=== PATIENT | male | born 1980 | race Caucasian/White ===

== ENCOUNTER 2018-09-06 19:20 | Inpatient (IN) | payer OTHER, SELFPAY ==
[2018-09-06] VITALS (63 sets, daily range): BP systolic 85–141; BP diastolic 41–123; PULSE 61–152; RESP 20–36; TEMP 34.2–36.3; O2SAT 87–100
[2018-09-06] MEDS: Normal Saline 1,000 ML 1000 ML IV ×4 (19:30→20:35)
[2018-09-06 19:54] LABS: HCO3 (Venous) 6 mmol/L (22-28); HCT 45.5 % (40.0-50.0); HGB 15.8 g/dL (13.5-17.5); Mean Corp. HGB Concentration 34.7 g/dL (32.0-36.0); Mean Corpuscular Hemoglobin 29.5 pg (27.0-33.0); Mean Corpuscular Volume 84.9 fL (80-95); Mean Platelet Volume 9.9 fL (8.0-11.0); O2 Sat (Venous) 80 % (70-80); Platelet Count 466 x1000/uL (130-400); RBC 5.36 m/cumm (4.50-6.00); RBC Distribution Width 15.1 % (11.8-14.1); TCO2 (Venous) 7 mmol/L (22-29); pCO2 (Venous) 33 mm/Hg (34-47); pO2 (Venous) 48 mm/Hg (28-44)
[2018-09-06 20:04] LABS: pH (Venous) 6.89 (7.32-7.43)
[2018-09-06 20:05] LABS: BE (Venous) < 4.0 mmol/L (-3-3); Lactate-non-spesis 1.6 mmol/L (0.6-1.4)
[2018-09-06 20:08] LABS: White Blood Cell Count 28.01 k/cumm (4.4-10.8)
[2018-09-06 20:15] LABS: ALT 28 U/L (12-78); AST 16 U/L (15-37); Albumin 3.2 g/dL (3.4-5.0); Alkaline Phosphatase 158 U/L (46-116); Anion Gap 23.5 mmol/L (3-11); BUN 43 mg/dL (7-18); Bilirubin, Total 1.1 mg/dL (0.2-1.0); CO2 7.5 mmol/L (21.0-32.0); CREATININE 2.35 mg/dL (0.70-1.30); Calcium 9.9 mg/dL (8.5-10.1); Chloride 87 mmol/L (98-107); Estimated GFR 31.54 (mL/min/1.73m2); Magnesium 2.3 mg/dL (1.8-2.4)
[2018-09-06 20:16] LABS: Troponin I < 0.02 ng/mL (0.00-0.06)
[2018-09-06 20:18] LABS: Glucose 718 mg/dL (70-100)
[2018-09-06 20:19] LABS: Sodium 118 mmol/L (136-145)
[2018-09-06 20:20] LABS: Potassium 6.4 mmol/L (3.5-5.1)
--- NOTE | 2018-09-06 20:23 | DI.RAD_ITS ---
SYMPTOMS/DIAGNOSIS: COUGH, ALTERED MENTATION PORTABLE AP UPRIGHT CHEST: There are no gross infiltrates in the lungs. No definite pleural effusion is seen. The heart is top limits of normal in size. There is some prominence of the ascending aorta which may be on the basis of ectasia and/or tortuosity and is unlikely to represent an aneurysm, however, in the absence of prior images, then follow up assessment with CT could be considered if clinically indicated. In addition on this AP projection, there may in fact be widening of the mediastinum. Further assessment initially with a PA and lateral study is suggested. There is no significant pleural effusion. There is no pneumothorax. No acute bony abnormality is seen. SUMMARY: There is no definite evidence of an acute pneumonitis. There are findings noted in this patient that could be further resolved with a CT of the chest. Please see the above discussion. This possible discordance was conveyed to the referring physician on 09/07/18 at 8:15 am.
[2018-09-06 20:28] LABS: Absolute Lymphocyte Count 1.96 k/cumm (1.2-3.4); Absolute Monocyte Count 1.68 k/cumm (0.11-0.7); Absolute Neutrophil Count 23.81 k/cumm (1.2-6.7); Atypical Lymphocytes % 1
[2018-09-06 20:31] LABS: Creatine Kinase 203 U/L (39-308)
--- NOTE | 2018-09-06 20:34 | ED.GENADUL_ITS ---
Discharge Plan Disposition Patient Disposition: [facility] INPATIENT Condition: Critical Discharge Details Chief Complaint: AMS/LOC Clinical Impression: DKA (diabetic ketoacidoses), Sepsis Primary Care Provider: Bin Rodriguez ED Provider: Eddie Rodriguez Home Meds and New Rx's Prescriptions: No Action chlorthalidone 25 mg Tablet 12.5 mg PO DAILY RF: 0 tramadol 50 mg Tablet 50 mg PO Q6H PRNRF: 0 valsartan 320 mg Tablet 320 mg PO DAILY RF: 0 Medical Decision Making 20:20 --patient seen immediately on arrival. Patient in critical condition on arrival. 37-year-old male presents with EMS with altered mental status, found down, elevated blood sugar, no known history of diabetes. Patient is tachypneic, was hypoxic but responding to high flow nonrebreather, currently satting 100%. Patient is normotensive and not tachycardic. RT consulted and at bedside - attempted abg unsuccessfully. Since arrival, patient is now more alert, initially was not able to respond to even painful stimuli but did have a gag reflex. He now is able to respond to verbal stimuli and is answering questions more appropriately, he remains lethargic. Patient difficult IV access. Nursing able to obtain #2 18-gauge peripheral IVs. Patient has limited neck access and groin is with skin breakdown and yeast odor. Attempted to place left subclavian central venous catheter for additional access but unfortunately was not able to identify space and patient did not tolerated procedure lying flat. Central line placement was aborted. Patient received approximately 500 mL IV fluid by EMS. Patient given additional 2 L IV fluid bolus here. Plan to start patient on insulin drip for presumed DKA. Patient has leukocytosis, mildly elevated lactate, and is hypothermic, he meets SIRS criteria consider sepsis. UA and chest x-ray pending. Plan to cover broadly with Zosyn and vancomycin. I called and spoke with Dr. Dozier who will admit the patient to the ICU. 21:06 --chest x-ray reviewed and interpreted by radiology: No significant airspace consolidation accounting for motion. Patchy right infrahilar opacity likely corresponds to normal hilar structures. Consider aspiration in the right clinical setting. Patient remains hemodynamically stable. HPI General Mode of arrival: EMS . Date/Time Provider Initiated Documentation: 09/06/18 19:34 . Limitations to Documentation: altered mental status . Information obtained by: EMS . HPI Narrative: 37-year-old male here after being found down by a neighbor. Unknown downtime. EMS assisted him to stand and walk out of the bathroom. It was blood and diarrhea in the bathroom. Patient altered on arrival and nonverbal. EMS note that he had an elevated blood glucose with glucometer reading high. Related Data Home Medications Medication Instructions Recorded Confirmed chlorthalidone 12.5 mg PO DAILY 09/06/18 09/06/18 tramadol 50 mg PO Q6H PRN 09/06/18 09/06/18 valsartan 320 mg PO DAILY 09/06/18 09/06/18 Allergies Allergy/AdvReac Type Severity Reaction Status Date / Time lactose AdvReac Diarrhea Unverified 02/25/17 15:35 General Stated Complaint: AMS/LOC FILEMON: 1 Review of Systems Review of Systems Unobtainable due to mental condition Exam Const General: in distress, ill appearing and lethargic Nutritional Appearance: obese Orientation: obtunded Limitations: altered mental status HENMT Head: normocephalic and atraumatic Mouth: moist mucous membranes Eyes Conjunctivae: normal conjunctivae Sclera: normal sclerae Pupils: PERRL (4mm) Neck Neck: trachea midline and supple Resp Effort & Inspection: tachypneic Auscultation: clear to auscultation bilaterally, no rales, no rhonchi and no wheezes Cardio Jugular venous pressure: no JVD Rate: regular rate and not tachycardic Rhythm: regular rhythm GI Palpation: soft, not firm, no guarding, no masses, not rigid and nontender Skin Rashes: rashes noted (Superficial skin breakdown bilateral groin with some dried blood) Neuro General: obtunded and unable to assess gait Cognition: abnormal cognition Extrem General: no edema Course Vital Signs Temperature 36.3 C L 09/06/18 19:22 Pulse 84 09/06/18 19:22 Respiratory Rate 26 H 09/06/18 19:22 Blood Pressure 136/49 L 09/06/18 19:22 Pulse Oximetry 100 09/06/18 19:22 Temperature 35.0 C L 09/06/18 20:01 Temperature Source Skin 09/06/18 19:22 Pulse 80 09/06/18 20:01 Pulse 89 09/06/18 20:01 Respiratory Rate 28 H 09/06/18 20:01 Respiratory Effort 09/06/18 20:08 Blood Pressure 123/49 L 09/06/18 20:01 Blood Pressure Mean 63 09/06/18 20:01 Pulse Oximetry 100 09/06/18 20:01 Respiratory End-tidal CO2 16 09/06/18 20:01 Oxygen Delivery Method Non-Rebreather 09/06/18 19:32 Oxygen Flow Rate 10 09/06/18 19:22 Lab/Test Results Lab/Test Results: 09/06/18 20:10 Blood Blood Culture - Pending 09/06/18 20:10 Blood Blood Culture - Pending Laboratory Tests Range/Units 09/06/18 09/06/18 09/06/18 19:43 19:43 19:43 WBC (4.4-10.8) k/cumm 28.01 H* RBC (4.50-6.00) m/cumm 5.36 Hgb (13.5-17.5) g/dL 15.8 Hct (40.0-50.0) % 45.5 MCV (80-95) fL 84.9 MCH (27.0-33.0) pg 29.5 MCHC (32.0-36.0) g/dL 34.7 RDW (11.8-14.1) % 15.1 H Plt Count (130-400) x1000/uL 466 H MPV (8.0-11.0) fL 9.9 VBG pH (7.32-7.43) VBG pCO2 (34-47) mm/Hg VBG pO2 (28-44) mm/Hg VBG HCO3 (22-28) mmol/L VBG Total CO2 (22-29) mmol/L VBG O2 Saturation (70-80) % VBG Base Excess (-3-3) mmol/L Sodium (136-145) mmol/L 118 L* Potassium (3.5-5.1) mmol/L 6.4 H* Chloride (98-107) mmol/L 87 L Carbon Dioxide (21.0-32.0) mmol/L 7.5 L Anion Gap (3-11) mmol/L 23.5 H BUN (7-18) mg/dL 43 H Creatinine (0.70-1.30) mg/dL 2.35 H Estimated GFR/1.73 m2 (mL/min/1.73m2) 31.54 Glucose (70-100) mg/dL 718 H* Lactate (0.6-1.4) mmol/L 1.6 H Calcium (8.5-10.1) mg/dL 9.9 Magnesium (1.8-2.4) mg/dL 2.3 Total Bilirubin (0.2-1.0) mg/dL 1.1 H AST (15-37) U/L 16 ALT (12-78) U/L 28 Alkaline Phosphatase (46-116) U/L 158 H Troponin I (0.00-0.06) ng/mL < 0.02 Total Protein (6.4-8.2) g/dL 8.0 Albumin (3.4-5.0) g/dL 3.2 L Range/Units 09/06/18 19:43 WBC (4.4-10.8) k/cumm RBC (4.50-6.00) m/cumm Hgb (13.5-17.5) g/dL Hct (40.0-50.0) % MCV (80-95) fL MCH (27.0-33.0) pg MCHC (32.0-36.0) g/dL RDW (11.8-14.1) % Plt Count (130-400) x1000/uL MPV (8.0-11.0) fL VBG pH (7.32-7.43) 6.89 L VBG pCO2 (34-47) mm/Hg 33 L VBG pO2 (28-44) mm/Hg 48 H VBG HCO3 (22-28) mmol/L 6 L VBG Total CO2 (22-29) mmol/L 7 L VBG O2 Saturation (70-80) % 80 VBG Base Excess (-3-3) mmol/L < 4.0 H Sodium (136-145) mmol/L Potassium (3.5-5.1) mmol/L Chloride (98-107) mmol/L Carbon Dioxide (21.0-32.0) mmol/L Anion Gap (3-11) mmol/L BUN (7-18) mg/dL Creatinine (0.70-1.30) mg/dL Estimated GFR/1.73 m2 (mL/min/1.73m2) Glucose (70-100) mg/dL Lactate (0.6-1.4) mmol/L Calcium (8.5-10.1) mg/dL Magnesium (1.8-2.4) mg/dL Total Bilirubin (0.2-1.0) mg/dL AST (15-37) U/L ALT (12-78) U/L Alkaline Phosphatase (46-116) U/L Troponin I (0.00-0.06) ng/mL Total Protein (6.4-8.2) g/dL Albumin (3.4-5.0) g/dL Critical Care Time Critical Care Time: Yes Total Critical Care Time: 90 Attestation: I spent greater than 90 minutes addressing this patient's immediate life threats.
[2018-09-06] MEDS: Calcium Gluconate 4.65 MEQ/10 ML VIAL 4.65 MG IVP (20:42)
[2018-09-06 20:44] LABS: *AMPHETAMINES SCREEN URINE Negative (Negative); *BARBITURATES SCREEN URINE Negative (Negative); *BENZODIAZEPINES SCREEN URINE Negative (Negative); Cannabinoids THC Negative (Negative); Cocaine Screen,Urine Negative (Negative); METHADONE URINE SCREEN Negative (Negative); OPIATES URINE SCREEN Negative (Negative)
[2018-09-06 20:45] LABS: Tricyclic Antidepressants Negative (Negative)
[2018-09-06 20:46] LABS: ETHANOL BLOOD < 3.0 mg/dL (<3)
[2018-09-06 20:49] LABS: Bilirubin Moderate (Negative); Blood Moderate (Negative); Clarity Sl Cloudy; Glucose 500 mg/dL (Negative); Ketones 80 mg/dL (Negative); Leukocyte Esterase Negative (Negative); Nitrite Negative (Negative); Specific Gravity 1.015 (1.005-1.025); Urobilinogen 0.2 EU/dL (Up TO 0.2); pH 5.5 (5-8)
[2018-09-06 20:56] LABS: TSH (W/Ref FT4) 2.17 uIU/mL (0.358-3.74)
--- NOTE | 2018-09-06 21:03 | DI.VRAD_ITS ---
EXAM: XR Chest, 1 View EXAM DATE/TIME: 09/06/2018 8:24 PM CLINICAL HISTORY: 37 years old, male; Signs and symptoms; Cough and other: Altered mentation; Cough with hemorrhage; Additional info: Patient unable to follow breathing instructions well. TECHNIQUE: XR of the chest, 1 view. COMPARISON: No relevant prior studies available. FINDINGS: Lungs: Low lung volumes. Motion artifact in the lungs. No significant airspace consolidation accounting for motion. Patchy right infrahilar opacity. Pleural space: No significant pleural effusion. No pneumothorax. Heart/Mediastinum: Conspicuous upper mediastinum compatible with cortical imaging. Bones/joints: No acute fracture. IMPRESSION: No significant airspace consolidation accounting for motion. Patchy right infrahilar opacity likely corresponds to normal hilar structures. Consider aspiration in the right clinical setting. Dictated and Authenticated by: Seble Dubon MD. Ordering:VISHAL CONTE MD
[2018-09-06] MEDS: PIPERACILLIN/TAZO 4.5 GM in Normal Saline 100 ML IVPB (21:13)
[2018-09-06 21:15] LABS: Bacteria Rare HPF (Negative); C & S Indicated? No; Crystals Negative HPF (Negative); Epithelial Cells Rare HPF (Negative); Mucus Trace (Negative); Other Cells Negative (Negative); RBC 0-2 (0-2)
[2018-09-06 21:17] LABS: WBC 0-2 HPF (0-5)
[2018-09-06 21:36] LABS: BUN 43 mg/dL (7-18); CREATININE 2.05 mg/dL (0.70-1.30); Calcium 9.2 mg/dL (8.5-10.1); Chloride 92 mmol/L (98-107); Estimated GFR 36.93 (mL/min/1.73m2); Potassium 5.8 mmol/L (3.5-5.1)
[2018-09-06 21:38] LABS: Glucose 641 mg/dL (70-100)
[2018-09-06 21:39] LABS: Sodium 124 mmol/L (136-145)
--- NOTE | 2018-09-06 21:45 | HPE_ITS ---
Date of service: 09/06/18 Time of Service: 20:45 Assessment and Plan (1) DKA (diabetic ketoacidoses): Current visit: Yes Status: Acute iv fluids; iv insulin per [facility] protocol w/ hourly monitoring of fingerstick glucose; BMP every 2hr with addition of potassium to his iv once his potassium is below 5.5; addition of glucose to his iv once his hourly glucose is below 250; consult diabetic education tomorrow to begin teaching. Patient is new onset type 1 diabetic. No prior personal hx of DM but multiple family members (sibs, father, mother, cousins, aunt); I will repeat his VBG and if his pH remains below 7 then add sodium bicarbonate to his iv fluids. His hyponatremia corrects to 133 based upon his initial glucose over 700. His elevated potassium was appropriate for his severe metabolic acidosis. He did not need calcium gluoconate and in fact he will need potassium supplementation once his potassium is closer to 5 (2) Acute kidney injury (nontraumatic): Current visit: Yes Status: Acute probably d/t severe dehydration; hopefully will recover w/ aggresive iv fluid hydration. He is already showing recover in his urine output which is over 100 mL/hr (3) Leukocytosis, unspecified: Current visit: Yes Status: Acute unclear source but probably d/t his DKA however given that he was found down and was initially hypoxic and there is vague perihilar densities on the right, he may have aspirated. Given his significantly elevated WBC of 28,000, blood cultures were obtained and he was started on broad spectrum antibiotics including Zosyn and Vancomycin. I concur with broad coverage until we are sure that he does not have sepsis. I will repeat his CXR and CBC in the a.m. His UA although shows ketonuria and severe hyperglycosuria there is no evidence for UTI. (4) Acute metabolic encephalopathy: Current visit: Yes Status: Acute He has no focal neurologic deficits to suggest a CVA and his sensorium is improving since his admission. I suspect this is all from DKA, dehydration, and/ or infection. (5) Bleeding: Current visit: Yes Status: Suspected patient was found by his cousin on the toilet w/ a lot of blood on his buttocks and his hand and on the toilet. He reportedly has hemorrhoids. It is not clear as to whether or not this was the source. I will check serial hemograms tonight to see if he has significant drop in his hemoglobin. I will put him on protonix for GI protection and will not use enoxaparin for DVT prophylaxis but use SCD's and ANTONIO hose instead in the event he had some GI bleeding. (6) Tinea cruris: Current visit: Yes Status: Acute I will begin him on topical antifungal w/ ketoconazole History of Present Illness Chief Complaint: Found down at home unresponsive Narrative: 37-year-old morbidly obese male with a past medical history of essential hypertension not currently medicated. Patient was expected to show up at his grandmother's home at noon today when he did not arrive his family came to check on him around 5 PM and found him in the bathroom naked and unresponsive on the toilet. His cousin, who is a nurse, found him sitting on the toilet with blood covering his buttocks and on his hand as well as on the toilet. She check for responsiveness and found him to be moaning but incoherent when she attempted to move him from the toilet over to a chair she says he became ashen white and less responsive. She laid him down and called EMS. Evaluation by EMS found him to be tachypneic and hypoxic and hyperglycemic. Blood sugar was too high for the glucometer to read. Further evaluation in the emergency room found him to be hypothermic with a temperature of 34.2 core temperature taken from his Herman catheter. He was found to be in diabetic ketoacidosis with a glucose of 718 and an anion gap of 23.5 and a carbon dioxide level of 7.5 with a venous blood gas of 6.89 along with acute kidney injury with an elevated BUN of 43 and creatinine 2.35 and an elevated potassium of 6.4 and a sodium of 118 and a leukocytosis of 28,000. UA had 80 mg/dL ketones. Workup for infectious etiology included chest x-ray that showed no acute infiltrates and a urinalysis that showed rare bacteria and negative for nitrites and leukocyte esterase. Treatment in the emergency room included 3 L of normal saline rapidly infused over the first couple hours. Initiation of broad-spectrum antibiotics including Zosyn and vancomycin. Patient was given a dose of calcium gluconate for the elevated potassium although his EKG showed no acute peaking of his T waves and no arrhythmias. Patient was given a bolus of insulin and started on insulin drip at 0.1 units/kg/h. While he was initially obtunded after couple liters of fluids had been given patient became more awake but remained disoriented. Patient is now being admitted to the intensive care unit for further treatment of new onset type 1 diabetes mellitus with diabetic ketoacidosis, dehydration, acute kidney injury, leukocytosis rule out sepsis. 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 When I asked him whether he is right-handed or left-handed he initially said left handed but when asked again he said he is right-handed. He is not oriented to place or time or circumstance. He knows that has been ill for 3 or 4 days.) [facility] Head: normal to inspection, no palpable skull fracture, normocephalic and atraumatic Ears: EAC abnormal excessive cerumen bilaterally General nose exam: external nose normal and nares normal Face and sinus: normal facial exam Mouth: oral mucosa abnormal (dry; no exudates; no lacerations) and tongue abnormal (dry) Eyes Visual David: normal visual david by confrontation Alignment and Position: alignment normal Periorbital: periorbital findings normal Eyelids: eyelids normal Conjunctivae: conjunctivae normal Sclera: sclerae normal Cornea: corneas normal Pupils: PERRL and pupil size bilaterally 3 EOM: EOM intact bilaterally Direct ophthalmoscopy: normal light reflex Neck Neck: normal visual inspection, full ROM, no lymphadenopathy, trachea midline and supple Thyroid: thyroid normal Carotids: normal carotid upstroke Lymphatic: no lymphadenopathy noted Resp Effort & Inspection: normal respiratory effort and able to speak in complete sentences Auscultation: wheezes expiratory wheezes and scattered wheezes Cardio Jugular venous pressure: no JVD Palpation: normal PMI Rate: regular rate Rhythm: regular rhythm Heart Sounds: S1 normal, S2 normal, normal, physiologic split S2, no gallops, no murmurs and no rubs Bruits: no abdominal aortic bruits and no carotid bruits Pulses: normal peripheral pulses GI Inspection: large pannus, obesity and striae Palpation: soft and no hepatosplenomegaly Percussion: normal to percussion Auscultation: normal bowel sounds Male General Exam: Yes erythema and Yes lesions (bilateral inguinal excoriations ) Back/Spine/Pelvis Back: no CVA tenderness Cervical Spine: normal cervical lordosis Thoracic/Lumbar Spine: thoracic and lumbar spine normal to inspection Skin General skin exam: erythema (over both inguinal areas w/ maceration and excoriation) Neuro General: awake, oriented Patient Orientation: Person and Confused, moves all extremities, no focal motor deficits and CN's II-XI intact bilaterally Cranial Nerves: CN's II-XI intact bilaterally, PERRL, EOM intact bilaterally, no nystagmus, facial strength normal, tongue midline, hearing normal, able to rotate head bilaterally, able to elevate shoulders bilaterally and Symmetric palate elevation Cognition: abnormal cognition Speech: speech normal Motor: muscle tone normal throughout, strength 5/5 throughout, no pronator drift , no movement abnormalities noted and no fasciculations Sensory Exam: no sensory deficits noted Plantar Reflexes: Downgoing: bilateral Pupils: Pinpoint: bilateral Extrem General: normal to inspection, full ROM, normal capillary refill, no joint enlargement, no clubbing, cyanosis or edema and no pedal edema Psych Appearance: disheveled Mental Status: other (lethargic but arouseable; oriented only to person; not to place/time/circumstances) Speech and Movement: agitated Mood: irritable mood and other (lethargic but arouseable; oriented only to person; not to place/time/circumstances) Affect: irritable affect Attitude: cooperative Thought Process: circumstantial Insight: poor Judgment: poor Results Imaging Chest x-ray: image reviewed (no definite consolidation but patchy right infrahilar opacity and low lung volumes and motion artifact; can not exclude aspiration versus artifact) Labs : 09/07/18 07:40 09/07/18 03:50 Laboratory Results - last 24 hr 09/06/18 09/06/18 09/06/18 19:13 19:43 19:43 WBC RBC Hgb Hct MCV MCH MCHC RDW Plt Count MPV Immature Gran % Neutrophils % Lymphocytes % Monocytes % Eosinophils % Basophils % Absolute Neutrophils Band Neutrophils Absolute Lymphocytes Absolute Monocytes Absolute Eosinophils Absolute Basophils Metamyelocytes Atypical Lymphocytes VBG pH VBG pCO2 VBG pO2 VBG HCO3 VBG Total CO2 VBG O2 Saturation VBG Base Excess Sodium 118 L* Potassium 6.4 H* Chloride 87 L Carbon Dioxide 7.5 L Anion Gap 23.5 H BUN 43 H Creatinine 2.35 H Estimated GFR/1.73 m2 31.54 Glucose 718 H* Lactate 1.6 H Calcium 9.9 Magnesium 2.3 Total Bilirubin 1.1 H AST 16 ALT 28 Alkaline Phosphatase 158 H Creatine Kinase 203 Troponin I < 0.02 Total Protein 8.0 Albumin 3.2 L TSH Urine Color Urine Clarity Urine pH Ur Specific Mayo Urine Protein Urine Ketones Urine Blood Urine Nitrite Urine Bilirubin Urine Urobilinogen Ur Leukocyte Esterase Urine RBC Urine WBC Ur Epithelial Cells Urine Crystals Urine Bacteria Urine Casts Urine Mucus Urine Other Ur Culture Indicated? Urine Glucose Urine Opiates Screen Urine Methadone Screen Ur Barbiturates Screen Ur Tricyclics Screen Ur Amphetamines Screen U Benzodiazepines Scrn Urine Cocaine Screen Ur THC Screen Ethyl Alcohol < 3.0 09/06/18 09/06/18 09/06/18 19:43 19:43 19:43 WBC 28.01 H* RBC 5.36 Hgb 15.8 Hct 45.5 MCV 84.9 MCH 29.5 MCHC 34.7 RDW 15.1 H Plt Count 466 H MPV 9.9 Immature Gran % 0.0 Neutrophils % 78.0 Lymphocytes % 6.0 Monocytes % 6.0 Eosinophils % 0.0 Basophils % 0.0 Absolute Neutrophils 23.81 H Band Neutrophils 7.0 Absolute Lymphocytes 1.96 Absolute Monocytes 1.68 H Absolute Eosinophils 0.00 Absolute Basophils 0.00 Metamyelocytes 2.0 Atypical Lymphocytes 1 VBG pH 6.89 L VBG pCO2 33 L VBG pO2 48 H VBG HCO3 6 L VBG Total CO2 7 L VBG O2 Saturation 80 VBG Base Excess < 4.0 H Sodium Potassium Chloride Carbon Dioxide Anion Gap BUN Creatinine Estimated GFR/1.73 m2 Glucose Lactate Calcium Magnesium Total Bilirubin AST ALT Alkaline Phosphatase Creatine Kinase Troponin I Total Protein Albumin TSH 2.17 Urine Color Urine Clarity Urine pH Ur Specific Mayo Urine Protein Urine Ketones Urine Blood Urine Nitrite Urine Bilirubin Urine Urobilinogen Ur Leukocyte Esterase Urine RBC Urine WBC Ur Epithelial Cells Urine Crystals Urine Bacteria Urine Casts Urine Mucus Urine Other Ur Culture Indicated? Urine Glucose Urine Opiates Screen Urine Methadone Screen Ur Barbiturates Screen Ur Tricyclics Screen Ur Amphetamines Screen U Benzodiazepines Scrn Urine Cocaine Screen Ur THC Screen Ethyl Alcohol 09/06/18 09/06/18 09/06/18 19:50 19:50 20:57 WBC RBC Hgb Hct MCV MCH MCHC RDW Plt Count MPV Immature Gran % Neutrophils % Lymphocytes % Monocytes % Eosinophils % Basophils % Absolute Neutrophils Band Neutrophils Absolute Lymphocytes Absolute Monocytes Absolute Eosinophils Absolute Basophils Metamyelocytes Atypical Lymphocytes VBG pH VBG pCO2 VBG pO2 VBG HCO3 VBG Total CO2 VBG O2 Saturation VBG Base Excess Sodium 124 L* Potassium 5.8 H Chloride 92 L Carbon Dioxide 7.0 L Anion Gap 25.0 H BUN 43 H Creatinine 2.05 H Estimated GFR/1.73 m2 36.93 Glucose 641 H* Lactate Calcium 9.2 Magnesium Total Bilirubin AST ALT Alkaline Phosphatase Creatine Kinase Troponin I Total Protein Albumin TSH Urine Color Yellow Urine Clarity Sl cloudy Urine pH 5.5 Ur Specific Mayo 1.015 Urine Protein 100 H Urine Ketones 80 Urine Blood Moderate H Urine Nitrite Negative Urine Bilirubin Moderate H Urine Urobilinogen 0.2 Ur Leukocyte Esterase Negative Urine RBC 0-2 Urine WBC 0-2 Ur Epithelial Cells Rare Urine Crystals Negative Urine Bacteria Rare Urine Casts Negative Urine Mucus Trace Urine Other Negative Ur Culture Indicated? No Urine Glucose 500 H Urine Opiates Screen Negative Urine Methadone Screen Negative Ur Barbiturates Screen Negative Ur Tricyclics Screen Negative Ur Amphetamines Screen Negative U Benzodiazepines Scrn Negative Urine Cocaine Screen Negative Ur THC Screen Negative Ethyl Alcohol Last Vital Signs Temp 35.5 C L 09/06/18 21:27 Pulse 87 09/06/18 21:27 Resp 27 H 09/06/18 21:27 BP 116/63 09/06/18 21:27 Pulse Ox 100 09/06/18 21:27
[2018-09-06] MEDS: VANCOMYCIN 2,000 MG in Normal Saline 500 ML 250 MG IVPB (22:10)
[2018-09-06 22:42] LABS: Diff Comment Manual Differential; RBC Morphology Normal
[2018-09-06 23:35] LABS: Abs Immature Grans 0.53 k/cumm (0.0-0.09); HGB 15.3 g/dL (13.5-17.5); Mean Corp. HGB Concentration 35.6 g/dL (32.0-36.0); Mean Corpuscular Hemoglobin 29.8 pg (27.0-33.0); Mean Corpuscular Volume 83.7 fL (80-95); Mean Platelet Volume 10.1 fL (8.0-11.0); Platelet Count 386 x1000/uL (130-400); RBC 5.14 m/cumm (4.50-6.00); RBC Distribution Width 15.2 % (11.8-14.1)
[2018-09-06 23:45] LABS: Anion Gap 24.3 mmol/L (3-11); BUN 46 mg/dL (7-18); CO2 5.7 mmol/L (21.0-32.0); CREATININE 2.06 mg/dL (0.70-1.30); Chloride 98 mmol/L (98-107); Estimated GFR 36.72 (mL/min/1.73m2); Glucose 482 mg/dL (70-100); Potassium 4.8 mmol/L (3.5-5.1); Sodium 128 mmol/L (136-145)
[2018-09-06 23:50] LABS: White Blood Cell Count 29.16 k/cumm (4.4-10.8)
[2018-09-07] VITALS (36 sets, daily range): BP systolic 110–148; BP diastolic 41–76; PULSE 74–112; RESP 17–33; TEMP 37.1–37.6; O2SAT 97–100
[2018-09-07 00:24] LABS: Absolute Eosinophil Count 0.29 k/cumm (0.0-0.7); Absolute Lymphocyte Count 2.92 k/cumm (1.2-3.4); Absolute Monocyte Count 2.04 k/cumm (0.11-0.7); Absolute Neutrophil Count 23.62 k/cumm (1.2-6.7); Atypical Lymphocytes % 6
[2018-09-07 00:25] LABS: Diff Comment Manual Differential; RBC Morphology Normal
[2018-09-07] MEDS: POTASSIUM CHLORIDE/0.45% NACL 1,000 ML 150 MEQ IV (01:00)
[2018-09-07] MEDS: WATER IV (01:09)
[2018-09-07] MEDS: Sodium Bicarbonate 50 MEQ/50 ML SYR (01:09)
[2018-09-07] MEDS: DEXTROSE 5% IV (01:09)
[2018-09-07] MEDS: SODIUM BICARBONATE IV (01:09)
[2018-09-07 01:52] LABS: Anion Gap 22.3 mmol/L (3-11); BUN 47 mg/dL (7-18); CO2 8.7 mmol/L (21.0-32.0); CREATININE 2.19 mg/dL (0.70-1.30); Chloride 96 mmol/L (98-107); Estimated GFR 34.22 (mL/min/1.73m2); Glucose 422 mg/dL (70-100); Potassium 4.7 mmol/L (3.5-5.1); Sodium 127 mmol/L (136-145)
[2018-09-07] MEDS: Normal Saline Flush 10 ML SYR IVP (02:38)
[2018-09-07] MEDS: Pantoprazole 40 MG VIAL IVP ×2 (02:38→23:30)
[2018-09-07] MEDS: PIPERACILLIN/TAZO 4.5 GM in Normal Saline 100 ML IVPB ×4 (04:02→22:03)
[2018-09-07 04:25] LABS: Anion Gap 18.7 mmol/L (3-11); BUN 50 mg/dL (7-18); CO2 11.3 mmol/L (21.0-32.0); CREATININE 2.27 mg/dL (0.70-1.30); Calcium 9.8 mg/dL (8.5-10.1); Chloride 97 mmol/L (98-107); Estimated GFR 32.83 (mL/min/1.73m2); Glucose 394 mg/dL (70-100); Potassium 4.4 mmol/L (3.5-5.1); Sodium 127 mmol/L (136-145)
[2018-09-07 07:51] LABS: HCO3 (Venous) 11 mmol/L (22-28); O2 Sat (Venous) 89 % (70-80); TCO2 (Venous) 10 mmol/L (22-29); pCO2 (Venous) 30 mm/Hg (34-47); pO2 (Venous) 50 mm/Hg (28-44)
[2018-09-07 07:56] LABS: pH (Venous) 7.17 (7.32-7.43)
[2018-09-07 07:58] LABS: Abs Immature Grans 0.13 k/cumm (0.0-0.09); Absolute Monocyte Count 1.92 k/cumm (0.11-0.7); Basophils % 0.1; HCT 40.2 % (40.0-50.0); HGB 14.1 g/dL (13.5-17.5); Immature Grans % 0.8; Lymphocytes % 3.6; Mean Corp. HGB Concentration 35.1 g/dL (32.0-36.0); Mean Corpuscular Hemoglobin 29.3 pg (27.0-33.0); Mean Corpuscular Volume 83.4 fL (80-95); Mean Platelet Volume 9.7 fL (8.0-11.0); Neutrophils % 83.5; Platelet Count 277 x1000/uL (130-400); RBC 4.82 m/cumm (4.50-6.00); RBC Distribution Width 15.4 % (11.8-14.1); White Blood Cell Count 16.01 k/cumm (4.4-10.8)
[2018-09-07 08:01] LABS: Absolute Basophil Count 0.02 k/cumm (0.0-0.2); Absolute Lymphocyte Count 0.58 k/cumm (1.2-3.4); Absolute Neutrophil Count 13.37 k/cumm (1.2-6.7)
[2018-09-07 08:07] LABS: Anion Gap 16.4 mmol/L (3-11); BUN 53 mg/dL (7-18); CO2 12.6 mmol/L (21.0-32.0); CREATININE 2.59 mg/dL (0.70-1.30); Calcium 10.1 mg/dL (8.5-10.1); Chloride 99 mmol/L (98-107); Estimated GFR 28.19 (mL/min/1.73m2); Glucose 250 mg/dL (70-100); Potassium 4.1 mmol/L (3.5-5.1); Sodium 128 mmol/L (136-145)
--- NOTE | 2018-09-07 08:30 | DI.RAD_ITS ---
SYMPTOMS/DIAGNOSIS: DYSPNEA PA AND LATERAL CHEST: The patient is morbidly obese, which degrades our ability to obtain a satisfactory examination; however, there is no gross infiltrate, or pneumothorax or pleural effusion. The heart appears to be within normal limits in size. There are no definite findings to suggest an aneurysm; however, this assessment is essentially impossible on the basis of the examinations obtained thus far and if there is any further question, then the patient could be referred to a facility that has a CT that can handle a patient in excess of 450 pounds.
[2018-09-07] MEDS: POTASSIUM CHLORIDE/D5-0.45NACL 1,000 ML 150 MEQ IV (08:42)
--- NOTE | 2018-09-07 09:01 | INITIAL_ITS ---
- If Service Date Differs Date of service: 09/07/18 Time of Service: 09:00 Care Management Initial Assess REASON FOR HOSPITALIZATION:: DKA, metobolic encephalopathy PAST MEDICAL HISTORY/PAST SURGICAL HISTORY:: Essential hypertension. History of appendectomy. New onset of diabetes. PREVIOUS FUNCTIONAL STATUS/SOCIAL/FAMILY SUPPORTS:: Miguelito lives alone in an apartment in [facility]. He works full-time at a company in [place] [facility]. His support system is his brother Brandon and his father. Miguelito at baseline is independent with ADLs and transportation. CURRENT FUNCTIONAL STATUS:: Miguelito is drowsy, not able to fully engage with CM. His family is present in the room including his brother. CM was able to wake up Miguelito enough to obtain his HIPPA. Miguelito is being transferred to [facility], family has been updated. ADVANCE DIRECTIVES:: None on file at [facility] Has patient been provided with information about the portal?: No Did the patient sign up for the portal?: No CODE STATUS:: Full Code INSURANCE COVERAGE / FINANCIAL ISSUES:: [facility] CURRENT HOME/COMMUNITY SERVICES/EQUIPMENT:: No current services. PRIMARY CARE PHYSICIAN:: Dr. Rodriguez POTENTIAL DISCHARGE NEEDS:: Miguelito will be transferred to [facility]. Upon discharge from [facility] he will need follow-up with simulation educator, and primary care. PATIENT/FAMILY EDUCATION NEEDS:: Discharge education, limitations, follow-up plan of care. Expectations of transfer to [facility]. ANTICIPATED BARRIERS TO DISCHARGE:: None identified at this time TRANSPORTATION:: Via [facility] to [facility], coordinated by nursing security site supervisor. PLAN:: Miguelito is being transferred to [facility] today. Family is aware of transfer. He will transfer by [facility] coordinated by nursing security site supervisor. CM offered support to patient, care team, and family during transition.
[2018-09-07 09:27] LABS: Lactate-non-spesis 1.3 mmol/L (0.6-1.4)
--- NOTE | 2018-09-07 09:45 | PHARADMIT ---
Addendum entered by Ines Gonzalez 09/08/18 11:16: Pharmacy Note Subjective expecting transfer to [facility] at noon Objective Assessment adjusted pip/tazo and vancomycin doses due to Scr increase. Plan watch for med dose changes needed Original Note: Admission Pharmacy Clinical Review DKA, Metabolic Encephalopathy, TOD, R/O Sepsis Code Status Full Code Current Weight Wgt- 203.6 kg Renally Cleared and Narrow Therapeutic Index Meds CrCl~ 45 mL/min Meds-OK QTc Value / Action Taken QTc-444 na BP Control, Fever BP-128/61 Tmax- 37.3C Electrolytes reviewed Na- 128 K+4.1 Mag-2.0 DVT Prophylaxis No DVT proph meds (has TEDS/SCDs) Opiate Usage / Scheduled Bowel Regimen Ordered No Yes Plt/SCr for Heparin / Enoxaparin Plts-277 SCr-2.59 INR for Warfarin na H/H stable, WBC/Bands H&H- 14.1/40.2 WBC- 16.01 (was 29.16) Antibiotic appropriateness Zosyn, Vancomycin Cultures and Sensitivities Blood-pending Surgical ABX d/c within 24 hr na DM control / Insulin Dosing BG- 250 (718 on Admission) Insulin Drip Heart Failure (Check EF%) (GLENROY's, B-Block, Diuretics) none IV to PO Switch No Home Meds Reviewed Yes Home Meds Not Ordered None Comments Valsartan, Chlorthalddione, Tramadol-DC'd
--- NOTE | 2018-09-07 10:20 | W.PM.PROGNOT ---
Date of Service Date of service: 09/07/18 Time of Service: 10:20 Assessment and Plan (1) DKA (diabetic ketoacidoses): Current visit: Yes Status: Acute Continues on IV insulin per [place] protocol w/ hourly monitoring of fingerstick glucose; fluids now with dextrose and potassium as blood sugar below 250 and potassium below 5. Magnesium remains normal, phosphate added to next blood draw. pH on VBG this morning improved, so no place for bicarb therapy. Anion gap is closing and lactate improved, continue BMP every 2hr. Diabetes diagnosis is new. I have ordered C-peptide and anti-kim antibodies to clarify a type I versus type II. We will also order A1c and TSH. (2) Acute kidney injury (nontraumatic): Current visit: Yes Status: Acute Patterson felt secondary to dehydration on admission. However, GFR is not improving with IV hydration. He does have a history of untreated hypertension, so he may have some chronic renal insufficiency. I will get some urine sodium and creatinine to assess. Also consider renal ultrasound if not improving. His urine output is adequate, and he has a Herman placed. (3) Leukocytosis, unspecified: Current visit: Yes Status: Acute He was started on broad spectrum antibiotics including Zosyn and Vancomycin given elevated white count, though a clear source is not identified on admission. We did just notice a draining abscess in the left groin. It is draining well, I do not think there is a residual pocket of pus. I have sent some drainage for culture. I will continue broad coverage until we get that culture and the blood cultures back. Repeat CXR brain not revealing. White blood cell count is improving, and it may just be related to the acute DKA. (4) Acute metabolic encephalopathy: Current visit: Yes Status: Acute He has no focal neurologic deficits to suggest a CVA and his sensorium is improving since his admission. I agree this is very to DKA, dehydration, and infection, continue to monitor and consider further workup if his sensorium does not continue to clear. (5) Bleeding: Current visit: Yes Status: Suspected patient was found by his cousin on the toilet w/ a lot of blood on his buttocks and his hand and on the toilet. Hemoglobin has not dropped seemingly. This may have been drainage from the abscess in the groin. (6) Tinea cruris: Current visit: Yes Status: Acute Severe, treat with topical antifungal. Appears candidal. (7) Cutaneous abscess of groin: Current visit: Yes Status: Acute This appears to be in the fatty tissue of the skin rather than in the scrotum. It is draining well, I do not think additional I&D is necessary at this point. On IV antibiotics. (8) DVT prophylaxis: Current visit: Yes Status: Acute Lovenox. Subjective Patient reports: denies diarrhea, vomiting and fever Interval history since last seen: 24-hour events: Patient on insulin drip overnight. Fluids changed to include dextrose and potassium this morning. Patient unable to give history due to mental status. He is frequently scratching his right groin area. He does not moan in response to questions, but speech is unintelligible. Exam Narrative Exam Narrative: General: Obtunded. He does turn head in response to voice and touch. He appears to say no appropriately to questions about pain during exam. HEENT: Conjunctivae are clear. Mucous membranes slightly dry, no lesions. Neck is supple. Lungs: Clear to auscultation bilaterally. Tachypneic. Cardia vascular: Tachycardic but regular rhythm. No murmurs gallops or rubs. Abdomen: Active bowel sounds, soft, does not respond in pain to palpation. Obese, but could not appreciate mass. Extremities: No pitting edema, warm, not cyanotic. : 2 x 3 cm induration with open central area draining brown liquid in the left groin. Appears to be in fatty tissue rather than in scrotum. Testicles and penis appear normal. CT scan. Skin: Beefy red rash in bilateral groin. Back and sacral area benign, but with 8 mm nodular skin growth consistent with a skin tag over sacrum. Skin is clammy. No other rashes or bruises. Neurologic: Normal tone, no tremor. Objective Objective Clinical Data: Abnormal lab results 09/06/18 09/06/18 09/06/18 Range/Units 19:43 19:43 19:43 WBC 28.01 H* (4.4-10.8) k/cumm RDW 15.1 H (11.8-14.1) % Plt Count 466 H (130-400) x1000/uL Absolute Neutrophils 23.81 H (1.2-6.7) k/cumm Absolute Lymphocytes (1.2-3.4) k/cumm Absolute Monocytes 1.68 H (0.11-0.7) k/cumm VBG pH (7.32-7.43) VBG pCO2 (34-47) mm/Hg VBG pO2 (28-44) mm/Hg VBG HCO3 (22-28) mmol/L VBG Total CO2 (22-29) mmol/L VBG O2 Saturation (70-80) % VBG Base Excess (-3-3) mmol/L Sodium 118 L* (136-145) mmol/L Potassium 6.4 H* (3.5-5.1) mmol/L Chloride 87 L (98-107) mmol/L Carbon Dioxide 7.5 L (21.0-32.0) mmol/L Anion Gap 23.5 H (3-11) mmol/L BUN 43 H (7-18) mg/dL Creatinine 2.35 H (0.70-1.30) mg/dL Glucose 718 H* (70-100) mg/dL Lactate 1.6 H (0.6-1.4) mmol/L Total Bilirubin 1.1 H (0.2-1.0) mg/dL Alkaline Phosphatase 158 H (46-116) U/L Albumin 3.2 L (3.4-5.0) g/dL Urine Protein (Negative) mg/dL Urine Blood (Negative) Urine Bilirubin (Negative) Urine Glucose (Negative) mg/dL 09/06/18 09/06/18 09/06/18 Range/Units 19:43 19:50 20:57 WBC (4.4-10.8) k/cumm RDW (11.8-14.1) % Plt Count (130-400) x1000/uL Absolute Neutrophils (1.2-6.7) k/cumm Absolute Lymphocytes (1.2-3.4) k/cumm Absolute Monocytes (0.11-0.7) k/cumm VBG pH 6.89 L (7.32-7.43) VBG pCO2 33 L (34-47) mm/Hg VBG pO2 48 H (28-44) mm/Hg VBG HCO3 6 L (22-28) mmol/L VBG Total CO2 7 L (22-29) mmol/L VBG O2 Saturation (70-80) % VBG Base Excess < 4.0 H (-3-3) mmol/L Sodium 124 L* (136-145) mmol/L Potassium 5.8 H (3.5-5.1) mmol/L Chloride 92 L (98-107) mmol/L Carbon Dioxide 7.0 L (21.0-32.0) mmol/L Anion Gap 25.0 H (3-11) mmol/L BUN 43 H (7-18) mg/dL Creatinine 2.05 H (0.70-1.30) mg/dL Glucose 641 H* (70-100) mg/dL Lactate (0.6-1.4) mmol/L Total Bilirubin (0.2-1.0) mg/dL Alkaline Phosphatase (46-116) U/L Albumin (3.4-5.0) g/dL Urine Protein 100 H (Negative) mg/dL Urine Blood Moderate H (Negative) Urine Bilirubin Moderate H (Negative) Urine Glucose 500 H (Negative) mg/dL 09/06/18 09/06/18 09/07/18 Range/Units 23:25 23:25 01:32 WBC 29.16 H* (4.4-10.8) k/cumm RDW 15.2 H (11.8-14.1) % Plt Count (130-400) x1000/uL Absolute Neutrophils 23.62 H (1.2-6.7) k/cumm Absolute Lymphocytes (1.2-3.4) k/cumm Absolute Monocytes 2.04 H (0.11-0.7) k/cumm VBG pH (7.32-7.43) VBG pCO2 (34-47) mm/Hg VBG pO2 (28-44) mm/Hg VBG HCO3 (22-28) mmol/L VBG Total CO2 (22-29) mmol/L VBG O2 Saturation (70-80) % VBG Base Excess (-3-3) mmol/L Sodium 128 L 127 L (136-145) mmol/L Potassium (3.5-5.1) mmol/L Chloride 96 L (98-107) mmol/L Carbon Dioxide 5.7 L 8.7 L (21.0-32.0) mmol/L Anion Gap 24.3 H 22.3 H (3-11) mmol/L BUN 46 H 47 H (7-18) mg/dL Creatinine 2.06 H 2.19 H (0.70-1.30) mg/dL Glucose 482 H D 422 H (70-100) mg/dL Lactate (0.6-1.4) mmol/L Total Bilirubin (0.2-1.0) mg/dL Alkaline Phosphatase (46-116) U/L Albumin (3.4-5.0) g/dL Urine Protein (Negative) mg/dL Urine Blood (Negative) Urine Bilirubin (Negative) Urine Glucose (Negative) mg/dL 09/07/18 09/07/18 09/07/18 Range/Units 03:50 07:40 07:40 WBC 16.01 H D (4.4-10.8) k/cumm RDW 15.4 H (11.8-14.1) % Plt Count (130-400) x1000/uL Absolute Neutrophils 13.37 H (1.2-6.7) k/cumm Absolute Lymphocytes 0.58 L (1.2-3.4) k/cumm Absolute Monocytes 1.92 H (0.11-0.7) k/cumm VBG pH 7.17 L (7.32-7.43) VBG pCO2 30 L (34-47) mm/Hg VBG pO2 50 H (28-44) mm/Hg VBG HCO3 11 L (22-28) mmol/L VBG Total CO2 10 L (22-29) mmol/L VBG O2 Saturation 89 H (70-80) % VBG Base Excess (-3-3) mmol/L Sodium 127 L (136-145) mmol/L Potassium (3.5-5.1) mmol/L Chloride 97 L (98-107) mmol/L Carbon Dioxide 11.3 L (21.0-32.0) mmol/L Anion Gap 18.7 H (3-11) mmol/L BUN 50 H (7-18) mg/dL Creatinine 2.27 H (0.70-1.30) mg/dL Glucose 394 H (70-100) mg/dL Lactate (0.6-1.4) mmol/L Total Bilirubin (0.2-1.0) mg/dL Alkaline Phosphatase (46-116) U/L Albumin (3.4-5.0) g/dL Urine Protein (Negative) mg/dL Urine Blood (Negative) Urine Bilirubin (Negative) Urine Glucose (Negative) mg/dL 09/07/18 Range/Units 07:40 WBC (4.4-10.8) k/cumm RDW (11.8-14.1) % Plt Count (130-400) x1000/uL Absolute Neutrophils (1.2-6.7) k/cumm Absolute Lymphocytes (1.2-3.4) k/cumm Absolute Monocytes (0.11-0.7) k/cumm VBG pH (7.32-7.43) VBG pCO2 (34-47) mm/Hg VBG pO2 (28-44) mm/Hg VBG HCO3 (22-28) mmol/L VBG Total CO2 (22-29) mmol/L VBG O2 Saturation (70-80) % VBG Base Excess (-3-3) mmol/L Sodium 128 L (136-145) mmol/L Potassium (3.5-5.1) mmol/L Chloride (98-107) mmol/L Carbon Dioxide 12.6 L (21.0-32.0) mmol/L Anion Gap 16.4 H (3-11) mmol/L BUN 53 H (7-18) mg/dL Creatinine 2.59 H (0.70-1.30) mg/dL Glucose 250 H D (70-100) mg/dL Lactate (0.6-1.4) mmol/L Total Bilirubin (0.2-1.0) mg/dL Alkaline Phosphatase (46-116) U/L Albumin (3.4-5.0) g/dL Urine Protein (Negative) mg/dL Urine Blood (Negative) Urine Bilirubin (Negative) Urine Glucose (Negative) mg/dL Vital Signs Temperature 37.3 C 09/07/18 07:45 Temperature Source Temporal Artery Scan 09/07/18 07:45 Pulse 105 H 09/07/18 07:05 Pulse 108 H 09/07/18 07:05 Respiratory Rate 25 H 09/07/18 07:05 Respiratory Effort 09/07/18 07:45 Respiratory Depth Shallow 09/07/18 07:45 Respiratory Pattern Tachypnea 09/07/18 07:45 Blood Pressure 128/61 09/07/18 07:05 Blood Pressure Mean 76 09/07/18 07:05 Pulse Oximetry 97 09/07/18 07:05 Respiratory End-tidal CO2 21 09/07/18 06:05 Oxygen Delivery Method Nasal Cannula 09/07/18 03:00 Oxygen Flow Rate 1 09/07/18 03:00 Pain Level 0 09/07/18 07:45 Intake & Output 09/06/18 09/06/18 09/07/18 11:59 23:59 11:59 Intake Total 5121.883 / 5121.883 2336.834 / 2336.834 Output Total 525 / 525 Balance 4596.883 / 4596.883 2336.834 / 2336.834 Weight 201.6 kg 203.6 kg Intake: IV 5121.883 / 5121.883 2336.834 / 2336.834 Oral 0 / 0 Output: Urine 525 / 525 Other: Urine Color Pale Yellow Yellow [place] Urine Appearance Clear Cloudy Comment Herman in place Voiding Methods Indwelling Catheter Laboratory Results WBC 16.01 k/cumm (4.4-10.8) H D 09/07/18 07:40 RBC 4.82 m/cumm (4.50-6.00) 09/07/18 07:40 Hgb 14.1 g/dL (13.5-17.5) 09/07/18 07:40 Hct 40.2 % (40.0-50.0) 09/07/18 07:40 MCV 83.4 fL (80-95) 09/07/18 07:40 MCH 29.3 pg (27.0-33.0) 09/07/18 07:40 MCHC 35.1 g/dL (32.0-36.0) 09/07/18 07:40 RDW 15.4 % (11.8-14.1) H 09/07/18 07:40 Plt Count 277 x1000/uL (130-400) D 09/07/18 07:40 MPV 9.7 fL (8.0-11.0) 09/07/18 07:40 Immature Gran % 0.8 09/07/18 07:40 Neutrophils % 83.5 09/07/18 07:40 Lymphocytes % 3.6 09/07/18 07:40 Monocytes % 12.0 09/07/18 07:40 Eosinophils % 0.0 09/07/18 07:40 Basophils % 0.1 09/07/18 07:40 Absolute Neutrophils 13.37 k/cumm (1.2-6.7) H 09/07/18 07:40 Band Neutrophils 0.0 % 09/06/18 23:25 Absolute Lymphocytes 0.58 k/cumm (1.2-3.4) L 09/07/18 07:40 Absolute Monocytes 1.92 k/cumm (0.11-0.7) H 09/07/18 07:40 Absolute Eosinophils 0.00 k/cumm (0.0-0.7) 09/07/18 07:40 Absolute Basophils 0.02 k/cumm (0.0-0.2) 09/07/18 07:40 Metamyelocytes 1.0 % 09/06/18 23:25 Differential Comment Manual differential 09/06/18 23:25 Atypical Lymphocytes 6 09/06/18 23:25 RBC Morphology Normal 09/06/18 23:25 VBG pH 7.17 (7.32-7.43) L 09/07/18 07:40 VBG pCO2 30 mm/Hg (34-47) L 09/07/18 07:40 VBG pO2 50 mm/Hg (28-44) H 09/07/18 07:40 VBG HCO3 11 mmol/L (22-28) L 09/07/18 07:40 VBG Total CO2 10 mmol/L (22-29) L 09/07/18 07:40 VBG O2 Saturation 89 % (70-80) H 09/07/18 07:40 VBG Base Excess mmol/L (-3-3) 09/07/18 07:40 Sodium 128 mmol/L (136-145) L 09/07/18 07:40 Potassium 4.1 mmol/L (3.5-5.1) 09/07/18 07:40 Chloride 99 mmol/L (98-107) 09/07/18 07:40 Carbon Dioxide 12.6 mmol/L (21.0-32.0) L 09/07/18 07:40 Anion Gap 16.4 mmol/L (3-11) H 09/07/18 07:40 BUN 53 mg/dL (7-18) H 09/07/18 07:40 Creatinine 2.59 mg/dL (0.70-1.30) H 09/07/18 07:40 Estimated GFR/1.73 m2 28.19 (mL/min/1.73m2) 09/07/18 07:40 Glucose 250 mg/dL (70-100) H D 09/07/18 07:40 Lactate 1.3 mmol/L (0.6-1.4) 09/07/18 07:40 Calcium 10.1 mg/dL (8.5-10.1) 09/07/18 07:40 Magnesium 2.0 mg/dL (1.8-2.4) 09/07/18 07:40 Total Bilirubin 1.1 mg/dL (0.2-1.0) H 09/06/18 19:43 AST 16 U/L (15-37) 09/06/18 19:43 ALT 28 U/L (12-78) 09/06/18 19:43 Alkaline Phosphatase 158 U/L (46-116) H 09/06/18 19:43 Creatine Kinase 203 U/L (39-308) 09/06/18 19:13 Troponin I < 0.02 ng/mL (0.00-0.06) 09/06/18 19:43 Total Protein 8.0 g/dL (6.4-8.2) 09/06/18 19:43 Albumin 3.2 g/dL (3.4-5.0) L 09/06/18 19:43 TSH 2.17 uIU/mL (0.358-3.74) 09/06/18 19:43 Urine Color Yellow (Yellow) 09/06/18 19:50 Urine Clarity Sl cloudy 09/06/18 19:50 Urine pH 5.5 (5-8) 09/06/18 19:50 Ur Specific [place] 1.015 (1.005-1.025) 09/06/18 19:50 Urine Protein 100 mg/dL (Negative) H 09/06/18 19:50 Urine Ketones 80 mg/dL (Negative) 09/06/18 19:50 Urine Blood Moderate (Negative) H 09/06/18 19:50 Urine Nitrite Negative (Negative) 09/06/18 19:50 Urine Bilirubin Moderate (Negative) H 09/06/18 19:50 Urine Urobilinogen 0.2 EU/dL (Up TO 0.2) 09/06/18 19:50 Ur Leukocyte Esterase Negative (Negative) 09/06/18 19:50 Urine RBC 0-2 (0-2) 09/06/18 19:50 Urine WBC 0-2 HPF (0-5) 09/06/18 19:50 Ur Epithelial Cells Rare HPF (Negative) 09/06/18 19:50 Urine Crystals Negative HPF (Negative) 09/06/18 19:50 Urine Bacteria Rare HPF (Negative) 09/06/18 19:50 Urine Casts Negative LPF (Negative) 09/06/18 19:50 Urine Mucus Trace (Negative) 09/06/18 19:50 Urine Other Negative (Negative) 09/06/18 19:50 Ur Culture Indicated? No 09/06/18 19:50 Urine Glucose 500 mg/dL (Negative) H 09/06/18 19:50 Urine Opiates Screen Negative (Negative) 09/06/18 19:50 Urine Methadone Screen Negative (Negative) 09/06/18 19:50 Ur Barbiturates Screen Negative (Negative) 09/06/18 19:50 Ur Tricyclics Screen Negative (Negative) 09/06/18 19:50 Ur Amphetamines Screen Negative (Negative) 09/06/18 19:50 U Benzodiazepines Scrn Negative (Negative) 09/06/18 19:50 Urine Cocaine Screen Negative (Negative) 09/06/18 19:50 Ur THC Screen Negative (Negative) 09/06/18 19:50 Ethyl Alcohol < 3.0 mg/dL (<3) 09/06/18 19:43
[2018-09-07 10:24] LABS: Bilirubin Large (Negative); Blood Large (Negative); Clarity Cloudy; Glucose Negative (Negative); Ketones 15 mg/dL (Negative); Leukocyte Esterase Negative (Negative); Nitrite Negative (Negative); Specific Gravity 1.015 (1.005-1.025); pH 5.5 (5-8)
[2018-09-07 10:31] LABS: Anion Gap 15.2 mmol/L (3-11); BUN 56 mg/dL (7-18); CO2 12.8 mmol/L (21.0-32.0); CREATININE 2.75 mg/dL (0.70-1.30); Chloride 101 mmol/L (98-107); Estimated GFR 26.31 (mL/min/1.73m2); Glucose 203 mg/dL (70-100); Potassium 3.9 mmol/L (3.5-5.1); Sodium 129 mmol/L (136-145)
[2018-09-07 10:44] LABS: Epithelial Cells Negative HPF (Negative); RBC >50 (0-2); WBC 20-50 HPF (0-5)
[2018-09-07 10:45] LABS: Bacteria Moderate HPF (Negative); C & S Indicated? Yes; Crystals Negative HPF (Negative); Mucus Negative (Negative); Other Cells Moderate Renal (Negative)
[2018-09-07 10:51] LABS: PHOSPHORUS 1.8 mg/dL (2.6-4.7)
[2018-09-07 12:50] LABS: Hemoglobin A1C 10.4 % (4.5-6.2)
[2018-09-07] MEDS: Ketoconazole 2% CREAM 15 GM TUBE TP ×2 (13:00→23:32)
[2018-09-07 13:26] LABS: Anion Gap 16.5 mmol/L (3-11); BUN 60 mg/dL (7-18); CO2 11.5 mmol/L (21.0-32.0); CREATININE 2.95 mg/dL (0.70-1.30); Calcium 10.1 mg/dL (8.5-10.1); Chloride 102 mmol/L (98-107); Estimated GFR 24.26 (mL/min/1.73m2); Glucose 178 mg/dL (70-100); Potassium 4.2 mmol/L (3.5-5.1); Sodium 130 mmol/L (136-145)
--- NOTE | 2018-09-07 13:45 | DI.US_ITS ---
SYMPTOM/DIAGNOSIS: RENAL FAILURE, NOT RESPONDING TO FLUIDS RENAL ULTRASOUND: The right kidney measures 17.1 cm in length. The left kidney measures 16.1 cm in length There is diffusely increased parenchymal thickness. No hydronephrosis, mass or calcifications are identified. The bladder was not imaged. The patient was agitated during the exam. No purulent nephric collection or ascites was seen. IMPRESSION: Bilateral enlarged kidneys. No evidence of hydronephrosis.
[2018-09-07] MEDS: POTASSIUM CHLORIDE/D5-0.45NACL 1,000 ML 200 MEQ IV (14:47)
--- NOTE | 2018-09-07 15:05 | DI.RAD_ITS ---
SYMPTOM/DIAGNOSIS: PICC PORTABLE CHEST: Comparison is made with AP and lateral exam performed earlier the same day. The exam is rotated. The lungs are not well inflated. A portion of the lateral aspect of the right lung is not included on the exam. The lungs are expiratory. A PICC line has been inserted via the left arm. The tip is not ideally seen but likely projects in the superior vena cava. No gross pulmonary consolidation or effusion is seen. There is no evidence of pneumothorax. IMPRESSION: Status post placement of PICC.
[2018-09-07 15:48] LABS: Casts 3-5 Coarse Granular LPF (Negative)
--- NOTE | 2018-09-07 15:51 | DI.VRAD_ITS ---
EXAM: XR Chest, 1 View EXAM DATE/TIME: 09/07/2018 2:14 PM CLINICAL HISTORY: 37 years old, male; Device placement; Picc TECHNIQUE: XR of the chest, 1 view. COMPARISON: SC XR PORTABLE CHEST AP 09/06/2018 8:33 PM FINDINGS: Body habitus and positioning limits evaluation. Lungs: Lungs are hypoinflated. No definite consolidation. Pleural space: Unremarkable. No pleural effusion. No pneumothorax. Heart/Mediastinum: The heart is not enlarged. Bones/joints: Unremarkable. IMPRESSION: Limited exam with lung hypoinflation. Dictated and Authenticated by: Delfino Camejo MD. Ordering:[facility] ANA ROSA SHIELDS MD
[2018-09-07] MEDS: Normal Saline 500 ML 1000 ML IV (15:53)
--- NOTE | 2018-09-07 16:24 | DI.VRAD_ITS ---
EXAM: US Retroperitoneal Complete. EXAM DATE/TIME: 09/07/2018 11:09 AM CLINICAL HISTORY: 37 years old, male; Signs and symptoms; Other: Renal failure, not responding to fluids; Patient HX: Large body habitus TECHNIQUE: Real-time ultrasound of the retroperitoneum with image documentation. Complete exam. COMPARISON: No relevant prior studies available. FINDINGS: Right kidney: Right kidney measures 17.1 cm. No mass or hydronephrosis. Left kidney: Left kidney measures 16.1 cm. No mass or hydronephrosis. Bladder: Bladder was not assessed. IMPRESSION: 1. No acute findings. 2. Large kidneys. Dictated and Authenticated by: Delfino Camejo MD. Ordering:WILLIAM NIELSEN MD
[2018-09-07 16:56] LABS: HCO3 (Venous) 11 mmol/L (22-28); O2 Sat (Venous) 97 % (70-80); TCO2 (Venous) 11 mmol/L (22-29); pCO2 (Venous) 28 mm/Hg (34-47); pH (Venous) 7.22 (7.32-7.43); pO2 (Venous) 81 mm/Hg (28-44)
[2018-09-07 17:04] LABS: Sodium, Urine 17 mmol/L
[2018-09-07 17:10] LABS: Anion Gap 15.8 mmol/L (3-11); BUN 59 mg/dL (7-18); CO2 12.2 mmol/L (21.0-32.0); Calcium 9.8 mg/dL (8.5-10.1); Chloride 103 mmol/L (98-107); Estimated GFR 22.91 (mL/min/1.73m2); Glucose 130 mg/dL (70-100); Potassium 3.5 mmol/L (3.5-5.1); Sodium 131 mmol/L (136-145)
[2018-09-07] MEDS: VANCOMYCIN 2,000 MG in Normal Saline 500 ML 250 MG IVPB (17:59)
[2018-09-07] MEDS: POTASSIUM CHLORIDE/D5-0.45NACL 1,000 ML 300 MEQ IV (20:13)
[2018-09-08] VITALS (26 sets, daily range): BP systolic 102–163; BP diastolic 44–87; PULSE 91–105; RESP 0–28; TEMP 37.5–37.9; O2SAT 95–99
[2018-09-08] MEDS: POTASSIUM CHLORIDE/D5-0.45NACL 1,000 ML 300 MEQ IV ×3 (02:52→10:15)
[2018-09-08] MEDS: PIPERACILLIN/TAZO 4.5 GM in Normal Saline 100 ML IVPB (03:09)
[2018-09-08 08:13] LABS: Abs Immature Grans 0.05 k/cumm (0.0-0.09); Absolute Basophil Count 0.01 k/cumm (0.0-0.2); Absolute Eosinophil Count 0.03 k/cumm (0.0-0.7); Absolute Lymphocyte Count 0.49 k/cumm (1.2-3.4); Absolute Monocyte Count 1.94 k/cumm (0.11-0.7); Absolute Neutrophil Count 6.57 k/cumm (1.2-6.7); Basophils % 0.1; Eosinophils % 0.3; HCT 33.7 % (40.0-50.0); HGB 11.8 g/dL (13.5-17.5); Immature Grans % 0.6; Lymphocytes % 5.4; Mean Corpuscular Hemoglobin 29.4 pg (27.0-33.0); Mean Corpuscular Volume 83.8 fL (80-95); Monocytes % 21.3; Neutrophils % 72.3; Platelet Count 207 x1000/uL (130-400); RBC 4.02 m/cumm (4.50-6.00); RBC Distribution Width 15.1 % (11.8-14.1); White Blood Cell Count 9.09 k/cumm (4.4-10.8)
[2018-09-08 08:22] LABS: Anion Gap 14.5 mmol/L (3-11); BUN 58 mg/dL (7-18); CO2 12.5 mmol/L (21.0-32.0); Calcium 9.4 mg/dL (8.5-10.1); Chloride 108 mmol/L (98-107); Estimated GFR 15.79 (mL/min/1.73m2); Glucose 87 mg/dL (70-100); Magnesium 1.8 mg/dL (1.8-2.4); Potassium 3.3 mmol/L (3.5-5.1); Sodium 135 mmol/L (136-145)
[2018-09-08 08:25] LABS: CREATININE 4.26 mg/dL (0.70-1.30)
[2018-09-08] MEDS: Ketoconazole 2% CREAM 15 GM TUBE TP (09:20)
[2018-09-08] MEDS: DEXTROSE 5%-LACTATED RINGERS 1,000 ML 200 ML IV (10:54)
--- NOTE | 2018-09-08 11:00 | PDOC.CMIN ---
- If Service Date Differs Date of service: 09/07/18 Time of Service: 09:00 Care Management Initial Assess REASON FOR HOSPITALIZATION:: DKA, metobolic encephalopathy PAST MEDICAL HISTORY/PAST SURGICAL HISTORY:: Essential hypertension. History of appendectomy. New onset of diabetes. PREVIOUS FUNCTIONAL STATUS/SOCIAL/FAMILY SUPPORTS:: Miguelito lives alone in an apartment in [facility]. 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 His support system is his brother Brandon and his father. Miguelito at baseline is independent with ADLs and transportation. CURRENT FUNCTIONAL STATUS:: Miguelito is drowsy, not able to fully engage with CM. His family is present in the room including his brother. CM was able to wake up Miguelito enough to obtain his HIPPA. Miguelito is being transferred to [facility], family has been updated. ADVANCE DIRECTIVES:: None on file at [facility] Has patient been provided with information about the portal?: No Did the patient sign up for the portal?: No CODE STATUS:: Full Code INSURANCE COVERAGE / FINANCIAL ISSUES:: [facility] CURRENT HOME/COMMUNITY SERVICES/EQUIPMENT:: No current services. PRIMARY CARE PHYSICIAN:: Dr. Rodriguez POTENTIAL DISCHARGE NEEDS:: Miguelito will be transferred to [facility]. Upon discharge from [facility] he will need follow-up with visual educator, and primary care. PATIENT/FAMILY EDUCATION NEEDS:: Discharge education, limitations, follow-up plan of care. Expectations of transfer to [facility]. ANTICIPATED BARRIERS TO DISCHARGE:: None identified at this time TRANSPORTATION:: Via [facility] to [facility], coordinated by nursing roaster supervisor. PLAN:: Miguelito is being transferred to [facility] today. Family is aware of transfer. He will transfer by [facility] coordinated by nursing roaster supervisor. CM offered support to patient, care team, and family during transition.
--- NOTE | 2018-09-08 11:24 | W.PM.DS.N ---
Date of service: 09/08/18 Time of Service: : DS: Diagnosis Discharge Diagnosis (1) DKA (diabetic ketoacidoses): Status: Acute (2) Acute kidney injury (nontraumatic): Status: Acute (3) Leukocytosis, unspecified: Status: Acute (4) Acute metabolic encephalopathy: Status: Acute (5) Cutaneous abscess of groin: Status: Acute (6) Morbid obesity: Status: Acute Discharge Plan Disposition Patient Disposition: [facility] ([facility]) Condition: Deteriorating Discharge Details Reason For Visit: DKA, METABOLIC ENCEPHALOPATHY, TOD, R/O SEPSIS Admit Date/Time: 09/06/18 21:38 Admit Provider: Bin Dozier Attending Provider: Bin Dozier Primary Care Provider: Bin Rodriguez Hospital Course Hospital Course: CC: Found down. DKA, TOD HPI: 37-year-old morbidly obese male with a strong family history of DM, and past medical history of morbid obesity and hypertension not under treatment, admitted from [facility] Emergency Department on 09/06 with a new diagnosis of Diabetes and in DKA. Mr. Villatoro was expected to be at his grandmother's home at noon on the day of admission, and when he did not arrive his family came to check on him around 5 PM and found him in the bathroom naked and unresponsive on the toilet. His cousin, who is a nurse, found him sitting on the toilet with blood covering his buttocks and on his hand as well as on the toilet. She check for responsiveness and found him to be moaning but incoherent when she attempted to move him. At that time EMS was called. Evaluation by EMS found the patient to be tachypneic, hypoxic, and hyperglycemic. Blood sugar was too high for the glucometer to read. Further evaluation in the emergency room found him to be hypothermic with a temperature of 34.2. He was found to be in diabetic ketoacidosis with a glucose of 718 and an anion gap of 23.5 and an initial bicarb of 7.5 with a venous blood gas of 6.89, along with acute kidney injury with an elevated BUN of 43 and creatinine 2.35 and an elevated potassium of 6.4 and a sodium of 118. He also had a leukocytosis of 28,000. UA had 80 mg/dL ketones. Workup for infectious etiology included chest x-ray that showed no acute infiltrates and a urinalysis that showed rare bacteria and negative for nitrites and leukocyte esterase. Treatment in the emergency room included 3 L of normal saline rapidly infused over the initial 2 hours. The patient was also initiated on broad-spectrum antibiotics including vancomycin and Pip-Tazo given his hypothermia, tachycardia, and leukocytosis. Patient was given a dose of calcium gluconate for the elevated potassium although his EKG showed no acute peaking of his T waves and no arrhythmias. He was given a bolus of insulin and started on insulin drip at 0.1 units/kg/h. While he was initially obtunded after couple liters of fluids had been given patient became more awake but remained disoriented. He was admitted to the intensive care unit for further evaluation of diabetic ketoacidosis, dehydration, acute kidney injury, likely sepsis, and altered mental status. Over the course of his hospital stay Mr. Villatoro continued on Insulin gtt with agressive IVFs, changed to D5 1/2 NS when his glucose dropped below 250. His electrolytes were repleted, and his antibiotics continued. He was found to have a draining inguinal abscess as potential source of infection, with culture results pending at time of discharge. His bicarb has improved mildly, but has now been at 12 and unchanged over the course of the last 24 hours by serial labs. His anion gap has improved from an original value of 25 to 14.5 today, but again without significant loom changer the last 24 hours or so. His PH has also improved from 6.8 to 7.2 this morning. However, despite aggressive fluid resuscitation his creatinine has actually worsened, and at 4.26 is over two times higher than his admission value. Given continued worsening of his kidney function and the extent of his DKA that has yet to resolve the patient is being transferred to a tertiary center. Hospital Course: (1) DKA (diabetic ketoacidoses): Continues on IV insulin per [place] protocol w/ hourly monitoring of fingerstick glucose; fluids was D5 1/2 NS with potassium as blood sugar had fallen below 250 with continued anion gap acidosis - now changed to D5 LR per recommendations from [facility] Optometry Teacher prior to transfer. PH, anion gap both improved, but patient remains with a gapped acidosis. Also continues on broad spectrum antibiotics for treatment of infection, with likely inguinal abscess as source. Diabetes diagnosis is new. C-peptide and anti-kim antibodies to clarify a type I versus type II. HgA1C checked and elevated at 10.3. Of note, The patient has a very strong family history of Diabetes. (2) Acute kidney injury (nontraumatic): Initially felt secondary to dehydration in setting of sepsis and DKA, creatinine continues to climb despite aggressive fluid resuscitation. Initial Creatinine value of 2.35 with unknown baseline, had steadily climbed to 3.1 yesterday, and now at 4.26. Electrolytes are stable and patient continues to have good urine output. Renal Ultrasound checked and without significant abnormality (large kidney noted). Urinary studies including Na and Cr sent and pending. Given concern at continued increase in creatinine despite aggressive IVF resuscitation the patient is being transferred in case of need for more aggressive intervention, HD, and/or nephrology consultation. Avoid nephrotoxins and renally dose medications when appropriate. (3) Leukocytosis, unspecified: Patient with likely sepsis at time of admission, with significant leukocytosis with a WBC of 28 with 7 bands, tachycardia, hypothermia, tachypnea, altered mental status, and evidence of organ dysfunction with elevated initial lactate and creatinine. Mr. Villatoro was maintained on broad spectrum antibiotics with Vancomycin and Pip-Tazo. His urinalysis and CXR were unremarkable, and blood cultures are without growth currently. He was noted to have a draining abscess in the left inguinal region, cultured, with results showing many WBC's, moderate Gram Positive Cocci, and rare gram Negative Rods - currently growing Strep Agalactiae (Group B) on cultures that are not finalized. As the abscess was draining well and immediate I&D was not pursued. (4) Acute metabolic encephalopathy: No focal neurologic deficits to suggest a CVA, with improved mental status since admission. Likely related to DKA, dehydration, and infection. Currently improved but not yet at baseline - according to family he remains slightly confused, and is somnolent. (5) Bleeding: patient was found by his cousin on the toilet w/ a lot of blood on his buttocks and his hand and on the toilet. Hemoglobin has not dropped seemingly. This may have been drainage from the abscess in the groin. (6) Disposition: Tranfer to [facility] given continued DKA, although improving, with continued worsening renal function. Discharge Orders Discharge Orders: Discharge Order (Routine); Ordered 09/08/18 Ordered By: Kavon Kessler DS: Data Vitals/I&O Vitals and I&O: Vital Signs Temperature 37.5 C 09/08/18 07:50 Temperature Source Core 09/08/18 07:50 Pulse 97 H 09/08/18 11:00 Pulse 97 H 09/08/18 11:00 Respiratory Rate 20 09/08/18 11:00 Respiratory Effort 09/08/18 07:50 Respiratory Depth Deep 09/08/18 07:50 Respiratory Pattern Normal 09/08/18 07:50 Blood Pressure 155/75 H 09/08/18 11:00 Blood Pressure Mean 92 09/08/18 11:00 Blood Pressure Position Right Lateral 09/08/18 07:50 Pulse Oximetry 98 09/08/18 11:00 Respiratory End-tidal CO2 09/07/18 10:00 Oxygen Delivery Method Room Air 09/08/18 07:50 Oxygen Flow Rate 0 09/08/18 07:50 Pain Level 0 09/08/18 07:50 Intake & Output 09/07/18 09/07/18 09/08/18 11:59 23:59 11:59 Intake Total 2700.991 / 2700.991 4346.449 / 4346.449 2531.772 / 2531.772 Output Total 1345 / 1345 1830 / 1830 Balance 2700.991 / 2700.991 3001.449 / 3001.449 701.772 / 701.772 Weight 203.6 kg 208.5 kg Intake: IV 2700.991 / 2700.991 4346.449 / 4346.449 2521.772 / 2521.772 Oral Output: Urine 1345 / 1345 1830 / 1830 Other: Urine Color Yellow Straw [place] Urine Appearance Cloudy Cloudy Comment So in place, Clamped at this time for upcoming U/S so So in place draining pink tinged urine Voiding Methods Indwelling Catheter Abscess Culture Preliminary 09/08/18-1008 Day 1 Result ISOLATES BELOW DAY 1 GROWTH MODERATE GROWTH ISOLATE 1 APPEARANCE Gram Positive Tim DAY 1 GROWTH MODERATE GROWTH ISOLATE 2 APPEARANCE Mixed Gram Positive Tim Group B streptococci remain universally susceptible to penicillin, ampicillin, and cefazolin. Resistance to clindamycin can occur. Please contact the Laboratory within 48hrs if clindamycin susceptibility testing is needed. Note: Due to a steady increase in resistance patterns seen nationally (ranging from 30-50%) Erythromycin should no longer be considered for intrapartum prophylaxis per CDC guidelines. Organism 1 STREPTOCOCCUS AGALACTIAE(GP B) GROWTH MODERATE GROWTH Organism 2 GRAM POSITIVE TIM,MIXED GROWTH MODERATE GROWTH Gram Stain Final 09/07/18-1525 GRAM STAIN Many White Blood Cells Moderate Gram Positive Cocci Rare Gram Negative Jemal Rare Gram Positive Jemal Completed studies during hospitalization [Text1]: EXAM: XR Chest, 1 View EXAM DATE/TIME: 09/07/2018 2:14 PM CLINICAL HISTORY: 37 years old, male; Device placement; Picc TECHNIQUE: XR of the chest, 1 view. COMPARISON: SC XR PORTABLE CHEST AP 09/06/2018 8:33 PM FINDINGS: Body habitus and positioning limits evaluation. Lungs: Lungs are hypoinflated. No definite consolidation. Pleural space: Unremarkable. No pleural effusion. No pneumothorax. Heart/Mediastinum: The heart is not enlarged. Bones/joints: Unremarkable. IMPRESSION: Limited exam with lung hypoinflation. EXAM: US Retroperitoneal Complete. EXAM DATE/TIME: 09/07/2018 11:09 AM CLINICAL HISTORY: 37 years old, male; Signs and symptoms; Other: Renal failure, not responding to fluids; Patient HX: Large body habitus TECHNIQUE: Real-time ultrasound of the retroperitoneum with image documentation. Complete exam. COMPARISON: No relevant prior studies available. FINDINGS: Right kidney: Right kidney measures 17.1 cm. No mass or hydronephrosis. Left kidney: Left kidney measures 16.1 cm. No mass or hydronephrosis. Bladder: Bladder was not assessed. IMPRESSION: 1. No acute findings. 2. Large kidneys. Exam(s) a RAD:XR chest 2V PA & lateral SYMPTOMS/DIAGNOSIS: DYSPNEA PA AND LATERAL CHEST: The patient is morbidly obese, which degrades our ability to obtain a satisfactory examination; however, there is no gross infiltrate, or pneumothorax or pleural effusion. The heart appears to be within normal limits in size. There are no definite findings to suggest an aneurysm; however, this assessment is essentially impossible on the basis of the examinations obtained thus far and if there is any further question, then the patient could be referred to a facility that has a CT that can handle a patient in excess of 450 pounds. EXAM: XR Chest, 1 View EXAM DATE/TIME: 09/06/2018 8:24 PM CLINICAL HISTORY: 37 years old, male; Signs and symptoms; Cough and other: Altered mentation; Cough with hemorrhage; Additional info: Patient unable to follow breathing instructions well. TECHNIQUE: XR of the chest, 1 view. COMPARISON: No relevant prior studies available. FINDINGS: Lungs: Low lung volumes. Motion artifact in the lungs. No significant airspace consolidation accounting for motion. Patchy right infrahilar opacity. Pleural space: No significant pleural effusion. No pneumothorax. Heart/Mediastinum: Conspicuous upper mediastinum compatible with cortical imaging. Bones/joints: No acute fracture. IMPRESSION: No significant airspace consolidation accounting for motion. Patchy right infrahilar opacity likely corresponds to normal hilar structures. Consider aspiration in the right clinical setting. Exam(s) a RAD:XR portable chest AP SYMPTOMS/DIAGNOSIS: COUGH, ALTERED MENTATION PORTABLE AP UPRIGHT CHEST: There are no gross infiltrates in the lungs. No definite pleural effusion is seen. The heart is top limits of normal in size. There is some prominence of the ascending aorta which may be on the basis of ectasia and/or tortuosity and is unlikely to represent an aneurysm, however, in the absence of prior images, then follow up assessment with CT could be considered if clinically indicated. In addition on this AP projection, there may in fact be widening of the mediastinum. Further assessment initially with a PA and lateral study is suggested. There is no significant pleural effusion. There is no pneumothorax. No acute bony abnormality is seen. SUMMARY: There is no definite evidence of an acute pneumonitis. There are findings noted in this patient that could be further resolved with a CT of the chest. Please see the above discussion. Labs on day of discharge: Labs from last 24 hours 09/08/18 09/08/18 09/08/18 07:50 07:50 07:50 WBC 9.09 D RBC 4.02 L Hgb 11.8 L D Hct 33.7 L MCV 83.8 MCH 29.4 MCHC 35.0 RDW 15.1 H Plt Count 207 MPV 10.0 Immature Gran % 0.6 Neutrophils % 72.3 Lymphocytes % 5.4 Monocytes % 21.3 Eosinophils % 0.3 Basophils % 0.1 Absolute Neutrophils 6.57 Absolute Lymphocytes 0.49 L Absolute Monocytes 1.94 H Absolute Eosinophils 0.03 Absolute Basophils 0.01 VBG pH VBG pCO2 VBG pO2 VBG HCO3 VBG Total CO2 VBG O2 Saturation VBG Base Excess Sodium 135 L Potassium 3.3 L Chloride 108 H Carbon Dioxide 12.5 L Anion Gap 14.5 H BUN 58 H Creatinine 4.26 H* D Estimated GFR/1.73 m2 15.79 Glucose 87 Hemoglobin A1c Calcium 9.4 Phosphorus 1.0 L Magnesium 1.8 Urine Casts Ur Random Sodium Urine Creatinine 09/07/18 09/07/18 09/07/18 16:45 16:45 16:45 WBC RBC Hgb Hct MCV MCH MCHC RDW Plt Count MPV Immature Gran % Neutrophils % Lymphocytes % Monocytes % Eosinophils % Basophils % Absolute Neutrophils Absolute Lymphocytes Absolute Monocytes Absolute Eosinophils Absolute Basophils VBG pH 7.22 L VBG pCO2 28 L VBG pO2 81 H VBG HCO3 11 L VBG Total CO2 11 L VBG O2 Saturation 97 H VBG Base Excess Sodium 131 L Potassium 3.5 Chloride 103 Carbon Dioxide 12.2 L Anion Gap 15.8 H BUN 59 H Creatinine 3.10 H Estimated GFR/1.73 m2 22.91 Glucose 130 H Hemoglobin A1c Calcium 9.8 Phosphorus Magnesium Urine Casts Ur Random Sodium 17 Urine Creatinine 09/07/18 09/07/18 09/07/18 16:45 13:10 07:40 WBC RBC Hgb Hct MCV MCH MCHC RDW Plt Count MPV Immature Gran % Neutrophils % Lymphocytes % Monocytes % Eosinophils % Basophils % Absolute Neutrophils Absolute Lymphocytes Absolute Monocytes Absolute Eosinophils Absolute Basophils VBG pH VBG pCO2 VBG pO2 VBG HCO3 VBG Total CO2 VBG O2 Saturation VBG Base Excess Sodium 130 L Potassium 4.2 Chloride 102 Carbon Dioxide 11.5 L Anion Gap 16.5 H BUN 60 H Creatinine 2.95 H Estimated GFR/1.73 m2 24.26 Glucose 178 H Hemoglobin A1c 10.4 H Calcium 10.1 Phosphorus Magnesium Urine Casts Ur Random Sodium Urine Creatinine 55.30 09/06/18 19:50 WBC RBC Hgb Hct MCV MCH MCHC RDW Plt Count MPV Immature Gran % Neutrophils % Lymphocytes % Monocytes % Eosinophils % Basophils % Absolute Neutrophils Absolute Lymphocytes Absolute Monocytes Absolute Eosinophils Absolute Basophils VBG pH VBG pCO2 VBG pO2 VBG HCO3 VBG Total CO2 VBG O2 Saturation VBG Base Excess Sodium Potassium Chloride Carbon Dioxide Anion Gap BUN Creatinine Estimated GFR/1.73 m2 Glucose Hemoglobin A1c Calcium Phosphorus Magnesium Urine Casts 3-5 coarse granular Ur Random Sodium Urine Creatinine Preliminary micro results at discharge 09/07/18 10:26 Abscess Culture - Preliminary Groin - Left Streptococcus Agalactiae(Gp B) Gram Positive Tim,Mixed 09/07/18 10:08 Urine Culture - Preliminary Urine - Reflex from Ua 09/06/18 20:57 Blood Culture - Preliminary Blood NO GROWTH 24 HOURS 09/06/18 20:29 Blood Culture - Preliminary Blood NO GROWTH 24 HOURS PFSH Family History Father Diabetes Medical History Essential hypertension (Chronic) Social History lives independently: Yes current occupational status: employed 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
[2018-09-08] MEDS: Magnesium Oxide 400 MG TAB PO (11:49)
[2018-09-08] MEDS: Heparin 5,000 UNITS/ML VIAL 5000 UNITS SC (11:50)
[2018-09-08] MEDS: Potassium Chloride 20 MEQ TABCR 40 MEQ PO (11:50)
[2018-09-08] MEDS: Normal Saline Flush 10 ML SYR IVP (12:09)
[2018-09-10 13:40] LABS: C-Peptide 2.9 ng/mL (1.1 - 4.4)
== END 2018-09-08 13:30 | disposition short-term general hospital (02) | DRG 637 ==
LOC: ER 21:54 → ICU 22:40
PROVIDERS: Emergency Medicine; Family Medicine; Admitting Provider Internal Medicine; Emergency Provider Student in an Organized Health Care Education/Training Program; PCP Nurse Practitioner; Visit Provider Internal Medicine
DX: E11.10 Type 2 diabetes mellitus with ketoacidosis without coma (principal); G93.41 Metabolic encephalopathy; A41.9 Sepsis, unspecified organism; N17.9 Acute kidney failure, unspecified; L02.214 Cutaneous abscess of groin; Z68.43 Body mass index [BMI] 50.0-59.9, adult; K92.2 Gastrointestinal hemorrhage, unspecified; T68.XXXA Hypothermia, initial encounter; R09.02 Hypoxemia; E86.0 Dehydration; B95.1 Streptococcus, group B, as the cause of diseases classified elsewhere; E66.01 Morbid (severe) obesity due to excess calories; I10 Essential (primary) hypertension; Z83.3 Family history of diabetes mellitus; X31.XXXA Exposure to excessive natural cold, initial encounter
CPT/HCPCS: 36415; 36416; 36569; 36592; 51702; 71045; 76770; 80048; 80053; 80307; 82550; 82805; 82962; 86341; 87040; 87077; 93005; 96361; 96365; 96375; 99223; 99233; 99239; 99291; 99292; 71046; 80320; 81003; 81015; 82565; 83036; 83605; 83735; 84100; 84300; 84443; 84484; 84681; 85025; 87070; 87086; 87205; 93010; J0610; J1644; J2543; J3490

== ENCOUNTER 2018-09-20 16:39 | Outpatient (REF) | payer OTHER, SELFPAY ==
[2018-09-20 18:40] LABS: BUN 21 mg/dL (7-18); CREATININE 2.85 mg/dL (0.70-1.30); Calcium 9.2 mg/dL (8.5-10.1); Chloride 110 mmol/L (98-107); Estimated GFR 25.11 (mL/min/1.73m2); Glucose 123 mg/dL (70-100); Potassium 3.9 mmol/L (3.5-5.1); Sodium 148 mmol/L (136-145)
== END 2018-09-20 16:59 ==
LOC: NCHCN 16:39
PROVIDERS: PCP Nurse Practitioner; Visit Provider Nurse Practitioner Family
DX: N17.9 Acute kidney failure, unspecified (principal); E11.65 Type 2 diabetes mellitus with hyperglycemia
CPT/HCPCS: 80048

== ENCOUNTER 2018-10-10 01:14 | Outpatient (CLI) | payer OTHER, SELFPAY ==
--- NOTE | 2018-10-10 11:00 | DIABASSESS_ITS ---
DESCRIPTION/ASSESSMENT: Miguelito Villatoro presents for diabetes self management with newly diagnosed type 2 diabetes. He reports he was diagnosed during hospitalization and blood sugars in the 700s with acute kidney changes. Food - Miguelito reports never eating sweets except ice cream, decrease frequency of chips, cut his portions by 1/2, increased fruits and vegetables and protein and has had a 15-20 pound weight loss. He lives in a household with others with diabetes who help him with food and he has access to cookbooks. He eats cereal milk or pb toast with banana for breakfast; veggies and meat for lunch or area development manager salad, and regular supper at home with his family. Physical Activity - walks 1 mile per day and is active for 8 hours at work. He enjoys snow machining in the winter. Medication - 70units Basaglar at night with 18u mealtime insulin. Monitoring - Current A1c 10.4 09/07/18. He monitors blood sugars twice daily usually; 75-155 fasting; 90-134 over past 3 days Risks/Related health history - he reports hypertension treatment as well as medication for kidneys. He also reports tension headaches. Stress: denies depression but does feel stress at work and with long days. INTERVENTION: DSME is provided in the following AADE 7 areas based on patients interest and assessment of needs: Food Guidelines - reviewed food guide and glycemic index as well has hunger/fullness. Physical Activity - Discussed benefits and goal of cardiovascular and resistant exercise. Monitoring - discussed benefits of monitoring in pairs and finding meaning in monitoring. Discussed hypoglycemic given his relatively tight glycemic control; reviewed symptoms, treatment, carry glucose at all times. Risks/Related health history - reviewed foot care with pamphlet, immunization recommendation, medical bracelet. ACTION PLAN: Miguelito will: be active 150 minutes a week with increased heart rate; sing/talk test Increase resistant carbs Monitor at bedtime to fasting or when want a question answered around lifestyle changes Watch for low blood sugar and be prepared Individual DSME/T __2__ units billed TIME IN: 1100 OUT: 1210 No DM group education series being offered at this time.
== END 2018-10-10 01:34 ==
PROVIDERS: PCP Nurse Practitioner Family; Visit Provider Dietitian, Registered
DX: E11.9 Type 2 diabetes mellitus without complications (principal); Z71.3 Dietary counseling and surveillance
CPT/HCPCS: G0108

== ENCOUNTER 2018-11-19 13:15 | Outpatient (REF) | payer OTHER, SELFPAY ==
[2018-11-19 19:02] LABS: Anion Gap 11.5 mmol/L (3-11); BUN 14 mg/dL (7-18); CO2 24.5 mmol/L (21.0-32.0); CREATININE 0.98 mg/dL (0.70-1.30); Calcium 9.6 mg/dL (8.5-10.1); Chloride 104 mmol/L (98-107); Glucose 124 mg/dL (70-100); Potassium 4.4 mmol/L (3.5-5.1); Sodium 140 mmol/L (136-145)
== END 2018-11-19 13:35 ==
LOC: NCHCN 13:15
PROVIDERS: PCP Nurse Practitioner Family; Visit Provider Nurse Practitioner Family
DX: E11.65 Type 2 diabetes mellitus with hyperglycemia (principal)
CPT/HCPCS: 80048

== ENCOUNTER 2019-01-20 14:33 | Outpatient (REF) | payer OTHER, SELFPAY ==
[2019-01-23 18:26] LABS: Cortisol, U 37 mcg/24 h (3.5-45); Urine Volume 2325 mL
== END 2019-01-20 14:53 ==
LOC: LBN 14:33
PROVIDERS: PCP Nurse Practitioner Family; Visit Provider Internal Medicine
DX: R68.89 Other general symptoms and signs (principal)
CPT/HCPCS: 81050; 82530; 83789

== ENCOUNTER 2019-02-26 09:30 | Emergency (ER) | payer OTHER, SELFPAY ==
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
[2019-02-26 09:34] VITALS: BP 156/97; PULSE 87; RESP 16; TEMP 37.2; O2SAT 99
[2019-02-26] MEDS: metFORMIN 500 MG TAB 1000 MG PO (09:50)
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
[2019-02-26 10:22] VITALS: BP 156/97; PULSE 87; RESP 16; TEMP 37.2; O2SAT 99
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
== END 2019-02-26 10:25 | disposition home or self-care (01) ==
LOC: ER 10:38
PROVIDERS: Emergency Provider Student in an Organized Health Care Education/Training Program; PCP Nurse Practitioner Family
DX: F32.9 Major depressive disorder, single episode, unspecified (principal); E11.9 Type 2 diabetes mellitus without complications; I10 Essential (primary) hypertension; Z79.84 Long term (current) use of oral hypoglycemic drugs
CPT/HCPCS: 36416; 82962; 99284

== ENCOUNTER 2019-03-03 22:44 | Emergency (ER) | payer OTHER, SELFPAY ==
[2019-03-03] VITALS (11 sets, daily range): BP systolic 125–142; BP diastolic 65–75; PULSE 63–77; RESP 13–23; TEMP 36.7; O2SAT 96–99
--- NOTE | 2019-03-03 23:02 | W.ED.GENAD ---
Discharge Plan Disposition Patient Disposition: HOME Condition: Improving Discharge Details Chief Complaint: Dizzy/Sync Clinical Impression: Diarrhea Primary Care Provider: Jason Ruth ED Provider: Zeus Francois Home Meds and New Rx's Prescriptions: Continued metformin 500 mg Tablet 500 mg PO .QHS RF: 0 metformin 1,000 mg Tablet 1,000 mg PO AC & HS RF: 0 spironolactone 25 mg Tablet 25 mg PO DAILY RF: 0 labetalol 300 mg Tablet 300 mg BID RF: 0 Novolog Flexpen U-100 Insulin 100 unit/mL Insulin Pen 10 unit TID RF: 0 insulin glargine 100 unit/mL (3 mL) Insulin Pen 10 unit SUBCUT DAILY RF: 0 Discharge Instructions Instructions: Acute Diarrhea (ED) Additional Instructions: Home to rest. Please follow-up with Jason Ruth in clinic for recheck. Call to make an appointment. Continue your regular medications. Small, frequent sips of fluids to maintain hydration Medical Decision Making 38-year-old male presents from home with complaint of 6-7 episodes of loose watery stool today. This evening after getting up from toilet he was lightheaded, became pale and diaphoretic and sat down on his bed. He did not have syncope. There is no associated chest pain or shortness of breath. Denies abdominal pain. He arrives with normal vital signs. He is well-appearing. Differential diagnosis includes vagal mediated near syncope, dehydration, electrolyte abnormality. Patient had IV access established, referred for EKG, laboratory testing. He is given parenteral fluids. Labs revealed mild elevation of LFTs with an AST 65, ALT 127, total bilirubin is normal at 0.7. Troponin negative. Remainder of CBC and chemistries are unremarkable. Patient given 2 L fluid bolus, antiemetic and Toradol. He is improved. Note of the mild elevation of LFTs and will have him follow-up for recheck. He is appropriate for trial of outpatient management. He understands return precautions to the ER. ECG Data Attestation: I personally reviewed and interpreted this ECG (s) as follows: Interpretation: Normal sinus rhythm with a rate of 69, the QRS is narrow, there is no ST segment elevation present. HPI General Mode of arrival: ambulatory. Date/Time Provider Initiated Documentation: 03/03/19 22:46. Limitations to Documentation: no limitations. Information obtained by: patient. History of Present Illness 38 year old M presents to the emergency department with the chief complaint of Multiple episodes of loose stool and lightheaded at home without syncope, described as moderate, and is localized to the head. Patient reports no radiation. Patient started experiencing this hour(s) and it has been now resolved. No relieving factors improve symptom(s), No exacerbating factors reported . Patient notes diaphoresis, nausea/vomiting and other (Diarrhea); denies fever/chills and syncope. Patient did receive the following treatments prior to arrival, none Related Data Home Medications Medication Instructions Recorded Confirmed metformin 1,000 mg PO AC & HS 02/26/19 03/03/19 metformin 500 mg PO .QHS 02/26/19 03/03/19 spironolactone 25 mg PO DAILY 02/26/19 03/03/19 Novolog Flexpen U-100 Insulin 10 unit TID 03/03/19 03/03/19 insulin glargine 10 unit SUBCUT DAILY 03/03/19 03/03/19 labetalol 300 mg BID 03/03/19 03/03/19 Allergies Allergy/AdvReac Type Severity Reaction Status Date / Time lisinopril Allergy Anaphylaxsi Unverified 02/26/19 09:42 s lactose AdvReac Diarrhea Unverified 09/06/18 21:54 General Stated Complaint: Dizzy/Sync FILEMON: 2 Review of Systems Review of Systems 6 systems reviewed and otherwise negative [facility] Medical History Diabetes mellitus (Chronic) Essential hypertension (Chronic) Surgical History History of appendectomy (Resolved) Family History Father Diabetes Social History Smoking/Tobacco Use Status: Former Tobacco Use Alcohol Intake: never Drug use: Never Substance use type: does not use 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 Pleasant, well groomed, interactive. HEAD: Normocephalic, atraumatic ENT: Mucous membranes dry, oropharynx unremarkable, External ear exam unremarkable EYES: PERRL, EOMI NECK: Full ROM, no JAYLON, no menigismus CHEST/RESP: Nontender, clear to auscultation bilateral, no wheeze/rhonchi/rales CARDIOVASCULAR: RRR, no murmur, rub mateusz. 2+ Rad pulse bilateral ABDOMEN: Soft, nontender, no mass. +Bowel sounds EXT: Full ROM, no edema, no rash Neuro: Grossly normal neurologic exam, conversant, interactive. Psych: Speech fluent, thoughts congruent, affect normal Course Vital Signs Temperature 36.7 C 03/03/19 22:50 Pulse 74 03/03/19 22:50 Respiratory Rate 18 03/03/19 22:50 Blood Pressure 142/75 H 03/03/19 22:50 Pulse Oximetry 99 03/03/19 22:50 Temperature 36.7 C 03/03/19 22:50 Temperature Source Tympanic 03/03/19 22:50 Pulse 74 03/03/19 22:50 Respiratory Rate 18 03/03/19 22:50 Respiratory Effort 03/03/19 22:50 Blood Pressure 142/75 H 03/03/19 22:50 Blood Pressure Position Sitting 03/03/19 22:50 Pulse Oximetry 99 03/03/19 22:50 Oxygen Delivery Method Room Air 03/03/19 22:50 Oxygen Flow Rate 0 03/03/19 22:50 Pain Level 0 03/03/19 22:50
--- NOTE | 2019-03-03 23:05 | ED.GENADUL_ITS ---
Discharge Plan Disposition Patient Disposition: HOME Condition: Improving Discharge Details Chief Complaint: Dizzy/Sync Clinical Impression: Diarrhea Primary Care Provider: Jason Ruth ED Provider: Zeus Francois Home Meds and New Rx's Prescriptions: Continued metformin 500 mg Tablet 500 mg PO .QHS RF: 0 metformin 1,000 mg Tablet 1,000 mg PO AC & HS RF: 0 spironolactone 25 mg Tablet 25 mg PO DAILY RF: 0 labetalol 300 mg Tablet 300 mg BID RF: 0 Novolog Flexpen U-100 Insulin 100 unit/mL Insulin Pen 10 unit TID RF: 0 insulin glargine 100 unit/mL (3 mL) Insulin Pen 10 unit SUBCUT DAILY RF: 0 Discharge Instructions Instructions: Acute Diarrhea (ED) Additional Instructions: Home to rest. Please follow-up with Jason Ruth in clinic for recheck. Call to make an appointment. Continue your regular medications. Small, frequent sips of fluids to maintain hydration Medical Decision Making 38-year-old male presents from home with complaint of 6-7 episodes of loose watery stool today. This evening after getting up from toilet he was lightheaded, became pale and diaphoretic and sat down on his bed. He did not rosales ve syncope. There is no associated chest pain or shortness of breath. Denies abdominal pain. He arrives with normal vital signs. He is well-appearing. Differential diagnosis includes vagal mediated near syncope, dehydration, electrolyte abnormality. Patient had IV access established, referred for EKG, laboratory testing. He is given parenteral fluids. Labs revealed mild elevation of LFTs with an AST 65, ALT 127, total bilirubin is normal at 0.7. Troponin negative. Remainder of CBC and chemistries are unremarkable. Patient given 2 L fluid bolus, antiemetic and Toradol. He is improved. Note of the mild elevation of LFTs and will have him follow-up for recheck. He is appropriate for trial of outpatient management. He understands return precautions to the ER. ECG Data Attestation: I personally reviewed and interpreted this ECG (s) as follows: Interpretation: Normal sinus rhythm with a rate of 69, the QRS is narrow, there is no ST segment elevation present. HPI General Mode of arrival: ambulatory . Date/Time Provider Initiated Documentation: 03/03/19 22:46 . Limitations to Documentation: no limitations . Information obtained by: patient . History of Present Illness 38 year old M presents to the emergency department with the chief complaint of Multiple episodes of loose stool and lightheaded at home without syncope, described as moderate, and is localized to the head. Patient reports no radiation. Patient started experiencing this hour(s) and it has been now resolved. No relieving factors improve symptom(s), No exacerbating factors reported . Patient notes diaphoresis, nausea/vomiting and other (Diarrhea); denies fever/chills and syncope. Patient did receive the following treatments prior to arrival, none Related Data Home Medications Medication Instructions Recorded Confirmed metformin 1,000 mg PO AC & HS 02/26/19 03/03/19 metformin 500 mg PO .QHS 02/26/19 03/03/19 spironolactone 25 mg PO DAILY 02/26/19 03/03/19 Novolog Flexpen U-100 Insulin 10 unit TID 03/03/19 03/03/19 insulin glargine 10 unit SUBCUT DAILY 03/03/19 03/03/19 labetalol 300 mg BID 03/03/19 03/03/19 Allergies Allergy/AdvReac Type Severity Reaction Status Date / Time lisinopril Allergy Anaphylaxsi Unverified 02/26/19 09:42 s lactose AdvReac Diarrhea Unverified 09/06/18 21:54 General Stated Complaint: Dizzy/Sync FILEMON: 2 Review of Systems Review of Systems 6 systems reviewed and otherwise negative [facility] Medical History Diabetes mellitus (Chronic) Essential hypertension (Chronic) Surgical History History of appendectomy (Resolved) Family History Father Diabetes Social History Smoking/Tobacco Use Status: Former Tobacco Use Alcohol Intake: never Drug use: Never Substance use type: does not use current occupation: [employer] Do you feel safe in your relationship?: Yes Exam Narrative Exam Narrative: GEN: awake, alert, oriented 3. Pleasant, well groomed, interactive. HEAD: Normocephalic, atraumatic ENT: Mucous membranes dry, oropharynx unremarkable, External ear exam unremarkable EYES: PERRL, EOMI NECK: Full ROM, no JAYLON, no menigismus CHEST/RESP: Nontender, clear to auscultation bilateral, no wheeze/rhonchi/rales CARDIOVASCULAR: RRR, no murmur, rub mateusz. 2+ Rad pulse bilateral ABDOMEN: Soft, nontender, no mass. +Bowel sounds EXT: Full ROM, no edema, no rash Neuro: Grossly normal neurologic exam, conversant, interactive. Psych: Speech fluent, thoughts congruent, affect normal Course Vital Signs Temperature 36.7 C 03/03/19 22:50 Pulse 74 03/03/19 22:50 Respiratory Rate 18 03/03/19 22:50 Blood Pressure 142/75 H 03/03/19 22:50 Pulse Oximetry 99 03/03/19 22:50 Temperature 36.7 C 03/03/19 22:50 Temperature Source Tympanic 03/03/19 22:50 Pulse 74 03/03/19 22:50 Respiratory Rate 18 03/03/19 22:50 Respiratory Effort 03/03/19 22:50 Blood Pressure 142/75 H 03/03/19 22:50 Blood Pressure Position Sitting 03/03/19 22:50 Pulse Oximetry 99 03/03/19 22:50 Oxygen Delivery Method Room Air 03/03/19 22:50 Oxygen Flow Rate 0 03/03/19 22:50 Pain Level 0 03/03/19 22:50
[2019-03-03] MEDS: Normal Saline 1,000 ML 1000 ML IV ×2 (23:14)
[2019-03-03] MEDS: Ondansetron 4 MG/2 ML VIAL IVP (23:15)
[2019-03-03 23:17] LABS: Abs Immature Grans 0.03 k/cumm (0.0-0.09); Absolute Basophil Count 0.09 k/cumm (0.0-0.2); Absolute Eosinophil Count 0.45 k/cumm (0.0-0.7); Absolute Lymphocyte Count 1.66 k/cumm (1.2-3.4); Absolute Neutrophil Count 6.71 k/cumm (1.2-6.7); Basophils % 0.9; Eosinophils % 4.6; HCT 42.8 % (40.0-50.0); HGB 14.4 g/dL (13.5-17.5); Immature Grans % 0.3; Mean Corp. HGB Concentration 33.6 g/dL (32.0-36.0); Mean Corpuscular Hemoglobin 28.2 pg (27.0-33.0); Mean Corpuscular Volume 83.9 fL (80-95); Mean Platelet Volume 9.9 fL (8.0-11.0); Monocytes % 8.2; Platelet Count 354 x1000/uL (130-400); RBC Distribution Width 14.8 % (11.8-14.1); White Blood Cell Count 9.74 k/cumm (4.4-10.8)
[2019-03-03 23:33] LABS: ALT 127 U/L (12-78); AST 65 U/L (15-37); Albumin 3.6 g/dL (3.4-5.0); Alkaline Phosphatase 76 U/L (46-116); Anion Gap 10.9 mmol/L (3-11); BUN 13 mg/dL (7-18); Bilirubin, Total 0.7 mg/dL (0.2-1.0); CO2 24.1 mmol/L (21.0-32.0); CREATININE 0.99 mg/dL (0.70-1.30); Calcium 9.2 mg/dL (8.5-10.1); Chloride 105 mmol/L (98-107); Glucose 88 mg/dL (70-100); Potassium 3.9 mmol/L (3.5-5.1); Sodium 140 mmol/L (136-145); Total Protein 7.8 g/dL (6.4-8.2)
[2019-03-03 23:34] LABS: Troponin I < 0.02 ng/mL (0.00-0.06)
[2019-03-03] MEDS: Ketorolac 30 MG/ML VIAL IVP (23:57)
[2019-03-04] VITALS: PULSE 66; RESP 19; O2SAT 97
[2019-03-04 00:02] VITALS: BP 124/61; PULSE 63; PULSE 67; RESP 19; O2SAT 97
[2019-03-04 00:10] VITALS: PULSE 64; RESP 28; O2SAT 99
[2019-03-04 00:47] VITALS: BP 124/61; PULSE 63; RESP 28; O2SAT 99
== END 2019-03-04 00:49 | disposition home or self-care (01) ==
LOC: ER 03-04 00:49
PROVIDERS: Emergency Provider Emergency Medicine; PCP Nurse Practitioner Family
DX: R19.7 Diarrhea, unspecified (principal); R42 Dizziness and giddiness; R94.5 Abnormal results of liver function studies
CPT/HCPCS: 80053; 93005; 96361; 96374; 96375; 99284; 83735; 84484; 85025; 93010; J1885; J2405

== ENCOUNTER 2019-03-04 22:18 | Inpatient (IN) | payer OTHER, SELFPAY ==
[2019-03-04] VITALS (19 sets, daily range): BP systolic 133–149; BP diastolic 67–91; PULSE 60–74; RESP 8–31; TEMP 37.2; O2SAT 96–98
--- NOTE | 2019-03-04 22:31 | W.ED.GENAD ---
Discharge Plan Disposition Patient Disposition: [facility] INPATIENT Condition: Stable Discharge Details Chief Complaint: GenMedical Clinical Impression: Gastroenteritis Admit Date/Time: 03/05/19 01:36 Admit Provider: Philip Maciel Attending Provider: Philip Maciel Primary Care Provider: Jason Ruth ED Provider: Zeus Francois Discharge Data Discharge Date/Time-TO BE ENTERED AT DEPARTURE: 03/05/19 01:45 Medical Decision Making <Gilberto Foster DO - Last Filed: 03/05/19 11:10> This is a 38-year-old male with a past medical history of type 2 diabetes, hypertension, who presents today for hematemesis, bloody diarrhea, chest pain, neck and back pain. Patient was here yesterday for lightheadedness and some nonspecific symptoms. He had a benign work-up, and was eventually discharged home. Today he has had continuation of diarrhea and vomiting now with blood, when he was being brought here by EMS he had notable diaphoretic episode with acute temporary hypotension, and associated chest pain and tightness. Exam demonstrates tenderness in his abdomen, equal pulses and capillary refill throughout, no focal neurologic deficits, no clinical evidence of meningitis. Differential includes gastric ulcer, unlikely dissection or AAA, cardiac etiology, or diverticulosis or colitis. We will get a CT scan for further evaluation, perform laboratory work-up, rehydrate and reassess. EKG 22: 20 Rate 65, intervals normal, sinus rhythm, no significant ST elevation or depression. Inverted T wave in lead III, EKG unchanged from EKG yesterday <Zeus Francois MD - Last Filed: 03/05/19 01:54> Received signout from Dr. Foster. Please see his note regarding patient's presentation. Patient was seen by me at 1 in the morning on March 04 following multiple episodes of loose and watery stool at home. He received 2 L of fluid, improved and was discharged. States he had some hours of comfortable rest at home and then developed hematemesis, bloody diarrhea, chest pain, headache neck and back pain for which he returned to the emergency department. Initially seen by Dr. Foster, signed out to me pending diagnostics. Patient has white blood cell count of 9, hematocrit 41, platelets 351, ANC 6.7 which is unchanged from yesterday. Chemistries reveal a slight anion gap of 12 with bicarb 22. BUN is 11, creatinine 0.8, AST 41, ALT 124, troponin negative. Lipase 108. Appears dehydrated with a specific gravity of 1.025 and ketones present in the urine. Patient underwent CT scan of the head as well as chest abdomen and pelvis. Imaging of the head, chest, abdomen and pelvis is unremarkable for acute process. The patient's discomfort has mildly improved. We will add stool studies. Patient's states she removed 2 ticks one from each upper thigh. We will add Lyme testing. Finally, note patient was recently evaluated for depression. He is stable, will merit admission for ongoing fluid resuscitation. Case discussed with Dr. Miller and patient to be admitted to the floor HPI <Gilberto Foster DO - Last Filed: 03/05/19 11:10> General Date/Time Provider Initiated Documentation: 03/04/19 22:21. HPI Narrative: This is a pleasant 38-year-old male who presents today for evaluation of vomiting with hematemesis, diarrhea with occasional bright red blood in his stools, in addition to chest pain, abdominal pain, as well as neck and back pain which she describes as stabbing in nature that was present yesterday. He was seen and assessed here in the ER yesterday, he had a thorough work-up, which showed no significant abnormalities requiring admission. He was discharged home with a reassuring clinical picture. Patient states that his symptoms continued throughout the day, and worsened tonight with the blood in his vomit and stool. He contacted EMS, and while getting driven over he developed a chest pain, became diaphoretic and notably lightheaded. Patient denies any other complaints. He denies any history of cardiac disease, dissection or aneurysm. Past medical history is positive for hypertension and diabetes type 2. Patient denies any other complaints at this time. He denies any other modifying factors. He denies any alcohol use, history of esophageal varices, or gastric ulcers. Related Data Home Medications Medication Instructions Recorded Confirmed metformin 1,000 mg PO AC & HS 02/26/19 03/04/19 metformin 500 mg PO .QHS 02/26/19 03/04/19 spironolactone 25 mg PO DAILY 02/26/19 03/04/19 Novolog Flexpen U-100 Insulin 10 unit TID 05/19/19 05/20/19 insulin glargine 10 unit SUBCUT DAILY 03/03/19 03/04/19 labetalol 300 mg BID 03/03/19 03/04/19 Allergies Allergy/AdvReac Type Severity Reaction Status Date / Time lisinopril Allergy Anaphylaxsi Unverified 03/04/19 22:54 s lactose AdvReac Diarrhea Unverified 03/04/19 22:54 General Stated Complaint: GenMedical FILEMON: 2 Review of Systems <Gilberto Foster DO - Last Filed: 03/05/19 11:10> Review of Systems All systems reviewed & are unremarkable except as noted in HPI and below PFSH <Gilberto Foster DO - Last Filed: 03/05/19 11:10> Medical History Diabetes mellitus (Chronic) Essential hypertension (Chronic) Surgical History History of appendectomy (Resolved) Family History Father Diabetes Social History Smoking/Tobacco Use Status: Former Tobacco Use Alcohol Intake: never Drug use: Never Substance use type: does not use current occupation: [employer] Do you feel safe at home: Yes Do you feel safe in your relationship?: Yes Exam <Gilberto Foster DO - Last Filed: 03/05/19 11:10> Narrative Exam Narrative: 1.Const: Well-nourished, Well-developed, appearing stated age 2.Eyes: PERRL, no conjunctival injection, and symmetrical lids. 3.ENT: Atraumatic external nose and ears. Moist MM. Neck: Symmetric, trachea midline, No thyromegaly. 4.CVS: +S1/S2, No murmurs or gallops. Peripheral pulses 2+ and equal in all extremities. Brisk capillary refill in all extremities. 5.RESP: Unlabored respiratory effort. Clear to auscultation bilaterally. No wheezes rales or rhonchi 6.GI: Soft, Nondistended, No hepatosplenomegaly. Mild abdominal tenderness throughout. Particularly worse in the epigastric region peer 7.MSK: Normocephalic/Atraumatic, Extremities w/o deformity or ttp No cyanosis or clubbing, Normal movement of all extremities. Radial pulses and dorsalis pedis pulses +2 bilaterally. Brisk capillary refill in all fingers and toes. 8.Skin: Warm, Dry. No rashes or lesions. 9.Neuro: buggy ladle tender II-XII grossly intact. Sensation grossly intact, no focal neurologic deficits. 10.Psych: (AAO) x3. Appropriate mood and affect Course <Gilberto Foster DO - Last Filed: 03/05/19 11:10> Vital Signs Temperature 37.2 C 03/04/19 22:20 Pulse 61 03/04/19 22:20 Respiratory Rate 20 03/04/19 22:20 Blood Pressure 149/83 H 03/04/19 22:20 Pulse Oximetry 98 03/04/19 22:20 Temperature 37.2 C 03/04/19 22:20 Temperature Source Skin 03/04/19 22:20 Pulse 61 03/04/19 22:20 Respiratory Rate 20 03/04/19 22:20 Blood Pressure 149/83 H 03/04/19 22:20 Blood Pressure Position Supine 03/04/19 22:20 Pulse Oximetry 98 03/04/19 22:20 Oxygen Delivery Method Room Air 03/04/19 22:20 Oxygen Flow Rate 0 03/04/19 22:20 Pain Level 8 03/04/19 22:20 Sign Out <Gilberto Foster DO - Last Filed: 03/05/19 11:10> Sign Out Data: Sign Out Comment: Pending labs, imaging, and remainder of work-up. Refer to Dr. Francois's documentation for final disposition. Last updated by Gilberto Foster DO at 03/04/19 23:20
[2019-03-04] MEDS: Normal Saline 1,000 ML 1000 ML IV (22:35)
[2019-03-04] MEDS: Pantoprazole 40 MG VIAL IVP (22:44)
[2019-03-04] MEDS: PANTOPRAZOLE 80 MG in Normal Saline 100 ML 10 MG IV (23:05)
[2019-03-04 23:09] LABS: BE (Venous) -1.8 mmol/L (-3-3); HCO3 (Venous) 23 mmol/L (22-28); O2 Sat (Venous) 98 % (70-80); TCO2 (Venous) 20 mmol/L (22-29); pCO2 (Venous) 35 mm/Hg (34-47); pH (Venous) 7.42 (7.32-7.43); pO2 (Venous) 87 mm/Hg (28-44)
[2019-03-04 23:33] LABS: ALT 124 U/L (12-78); AST 41 U/L (15-37); Abs Immature Grans 0.01 k/cumm (0.0-0.09); Absolute Basophil Count 0.09 k/cumm (0.0-0.2); Absolute Eosinophil Count 0.25 k/cumm (0.0-0.7); Absolute Lymphocyte Count 1.47 k/cumm (1.2-3.4); Absolute Monocyte Count 0.83 k/cumm (0.11-0.7); Absolute Neutrophil Count 6.71 k/cumm (1.2-6.7); Albumin 3.5 g/dL (3.4-5.0); Alkaline Phosphatase 73 U/L (46-116); Anion Gap 12.2 mmol/L (3-11); BUN 11 mg/dL (7-18); Bilirubin, Total 0.7 mg/dL (0.2-1.0); CO2 22.8 mmol/L (21.0-32.0); CREATININE 0.86 mg/dL (0.70-1.30); Calcium 9.1 mg/dL (8.5-10.1); Chloride 107 mmol/L (98-107); Eosinophils % 2.7; Glucose 96 mg/dL (70-100); HCT 41.1 % (40.0-50.0); HGB 13.7 g/dL (13.5-17.5); Immature Grans % 0.1; Lipase 108 U/L (73-393); Lymphocytes % 15.7; Mean Corp. HGB Concentration 33.3 g/dL (32.0-36.0); Mean Corpuscular Hemoglobin 28.3 pg (27.0-33.0); Mean Corpuscular Volume 84.9 fL (80-95); Mean Platelet Volume 10.3 fL (8.0-11.0); Monocytes % 8.9; Neutrophils % 71.6; Platelet Count 351 x1000/uL (130-400); Potassium 3.4 mmol/L (3.5-5.1); RBC 4.84 m/cumm (4.50-6.00); RBC Distribution Width 14.9 % (11.8-14.1); Sodium 142 mmol/L (136-145); Total Protein 7.3 g/dL (6.4-8.2); White Blood Cell Count 9.36 k/cumm (4.4-10.8)
[2019-03-04 23:35] LABS: Troponin I < 0.02 ng/mL (0.00-0.06)
[2019-03-04] MEDS: Omnipaque 350 MG/ML 100 ML BTL IJ (23:41)
[2019-03-04] MEDS: Normal Saline Flush 10 ML SYR IV (23:43)
--- NOTE | 2019-03-04 23:45 | DI.CT_ITS ---
SYMPTOM/DIAGNOSIS: SEVERE CHEST PAIN, HEMATEMASIS, BACK PAIN, HEADACHE NONCONTRAST HEAD CT: The study was carried out according to the usual protocol without contrast enhancement. There is no evidence of an intra/extra-axial hemorrhage. There is nothing to suggest an infarct. The ventricles are normal. There is no skull fracture. The paranasal sinuses are normal. There is no evidence of a mastoid effusion. The soft tissues are normal. SUMMARY: No acute abnormality is demonstrated. CTA CHEST, ABDOMEN AND PELVIS: CT angiography was performed with multi slice acquisition and multi planar and 3D reconstruction. The examination was carried out according to the usual protocol with an intravenous administration of 100 cc's of Omnipaque 350. CHEST: There is no evidence of PE. The aorta is normal. The lungs are normal. There is no evidence of a pneumothorax or pleural effusion. The heart is not enlarged. There is no evidence of lymphadenopathy or a mass. The bony structures are unremarkable. The soft tissues are unremarkable. IMPRESSION: No evidence of an aneurysm or dissection involving the thoracic aorta. No evidence of PE. ABDOMEN AND PELVIS: There is no evidence of an aneurysm or dissection. The celiac and mesenteric arteries appear intact. The renal arteries are intact. The right iliac artery and left iliac artery are intact. The liver is unremarkable. The gallbladder is intact. There are no stones or ductal dilatation. The pancreas is unremarkable. The spleen and adrenals and kidneys are unremarkable. There is no evidence of bowel obstruction or mucosal thickening. The patient is status post appendectomy. The bladder is intact. The reproductive organs as visualized are intact. There is no evidence of free air or free fluid in the intraperitoneal space. No acute bony abnormality is seen. There is no demonstrated soft tissue abnormality or evidence of lymphadenopathy. SUMMARY: No evidence of an aneurysm or dissection involving the abdominal aorta.
[2019-03-04 23:56] LABS: Bilirubin Negative (Negative); Blood Negative (Negative); Clarity Clear; Glucose Negative (Negative); Ketones Trace mg/dL (Negative); Leukocyte Esterase Negative (Negative); Nitrite Negative (Negative); Specific Gravity 1.025 (1.005-1.025); Urobilinogen 0.2 EU/dL (Up TO 0.2); pH 5.5 (5-8)
[2019-03-05] VITALS (22 sets, daily range): BP systolic 128–172; BP diastolic 58–99; PULSE 53–81; RESP 13–32; TEMP 36.7–37.2; O2SAT 95–99
[2019-03-05 00:11] LABS: INR 1.1 (0.9-1.1); PTT Activated 24.5 sec (21.0-31.4); Prothrombin Time 10.8 sec (9.3-11.0)
[2019-03-05] MEDS: HYDROmorphone 2 MG/ML VIAL 0.5 MG IVP ×2 (00:11→01:09)
--- NOTE | 2019-03-05 00:53 | DI.VRAD_ITS ---
EXAM: CT Head Without Contrast EXAM DATE/TIME: 03/04/2019 11:54 PM CLINICAL HISTORY: 38 years old, male; Severe headache TECHNIQUE: Imaging protocol: Axial computed tomography images of the head without contrast. Coronal and sagittal reformatted images were created and reviewed. Radiation optimization: All CT scans at this facility use at least one of these dose optimization techniques: automated exposure control; mA and/or kV adjustment per patient size (includes targeted exams where dose is matched to clinical indication); or iterative reconstruction. COMPARISON: No relevant prior studies available. FINDINGS: Brain: No evidence for acute transcortical infarct. No mass effect or midline shift. No extra-axial collection. No acute intracranial hemorrhage. Basal cisterns are patent. Ventricles: Normal. No ventriculomegaly. Bones/joints: Unremarkable. No acute fracture. Sinuses: Visualized sinuses are unremarkable. No fluid levels. Mastoid air cells: Visualized mastoid air cells are well aerated. No mastoid effusion. Soft tissues: Unremarkable. IMPRESSION: No hydrocephalus, acute intracranial hemorrhage, or mass effect. Dictated and Authenticated by: Cody Del Valle MD. Ordering:PIETER Schulz MD
--- NOTE | 2019-03-05 00:57 | DI.VRAD_ITS ---
EXAM: CT Angiography Chest With Contrast EXAM DATE/TIME: 03/04/2019 10:28 PM CLINICAL HISTORY: 38 years old, male; Type not specified; Prior surgery; Surgery date: 6+ months; Surgery type: Appendix removed; Patient HX: Severe chest pain, hematemesis, back pain TECHNIQUE: Imaging protocol: Axial computed tomographic angiography images of the chest with intravenous contrast using CT angiography protocol. Coronal and sagittal reformatted images were created and reviewed. 3D rendering: MIP reconstructed images were created and reviewed. Radiation optimization: All CT scans at this facility use at least one of these dose optimization techniques: automated exposure control; mA and/or kV adjustment per patient size (includes targeted exams where dose is matched to clinical indication); or iterative reconstruction. Contrast material: OMNIPAQUE 350; Contrast volume: 100 ml; Contrast route: IV; COMPARISON: SC XR PORTABLE CHEST AP POST LINE 09/07/2018 3:26 PM FINDINGS: Pulmonary arteries: No acute pulmonary embolus. Aorta: No aneurysm or dissection of the thoracic aorta. Lungs: Normal. No consolidation. No masses. Pleural space: Normal. No pneumothorax. No pleural effusion. Heart: No cardiomegaly. No pericardial effusion. Lymph nodes: Unremarkable. No enlarged lymph nodes. Bones/joints: Unremarkable. No acute fracture. Soft tissues: Unremarkable. IMPRESSION: 1. No aneurysm or dissection of the thoracic aorta. 2. No acute pulmonary embolus. EXAM: CT Angiography Abdomen and Pelvis With Contrast EXAM DATE/TIME: 03/04/2019 10:28 PM CLINICAL HISTORY: 38 years old, male; Type not specified; Prior surgery; Surgery date: 6+ months; Surgery type: Appendix removed; Patient HX: Severe chest pain, hematemesis, back pain TECHNIQUE: Imaging protocol: Axial computed tomographic angiography images of the abdomen and pelvis with intravenous contrast material. Coronal and sagittal reformatted images were created and reviewed. 3D rendering: MIP reconstructed images were created and reviewed. Radiation optimization: All CT scans at this facility use at least one of these dose optimization techniques: automated exposure control; mA and/or kV adjustment per patient size (includes targeted exams where dose is matched to clinical indication); or iterative reconstruction. COMPARISON: SC XR PORTABLE CHEST AP POST LINE 09/07/2018 3:26 PM FINDINGS: VASCULATURE: Aorta: No aneurysm or dissection of the abdominal aorta. Celiac trunk and mesenteric arteries: No occlusion or significant stenosis. Renal arteries: No occlusion or significant stenosis. Right iliac arteries: No occlusion or significant stenosis. Left iliac arteries: No occlusion or significant stenosis. ABDOMEN: Liver: No mass. Gallbladder and bile ducts: Unremarkable. No calcified stones. No ductal dilation. Pancreas: Unremarkable. No mass. No ductal dilation. Spleen: Unremarkable. No splenomegaly. Adrenals: Unremarkable. No mass. Kidneys and ureters: Unremarkable. No solid mass. No hydronephrosis. Stomach and bowel: Unremarkable. No obstruction. No mucosal thickening. Appendix: Appendectomy. PELVIS: Bladder: Unremarkable. No mass. Reproductive: Unremarkable as visualized. ABDOMEN and PELVIS: Intraperitoneal space: Unremarkable. No free air. No significant fluid collection. Bones/joints: No acute fracture. No dislocation. Soft tissues: Unremarkable. Lymph nodes: Unremarkable. No enlarged lymph nodes. IMPRESSION: No aneurysm or dissection of the abdominal aorta. Dictated and Authenticated by: Cody Del Valle MD. Ordering:GIRISH Macias MD
--- NOTE | 2019-03-05 01:36 | HPE_ITS ---
Date of service: 03/05/19 Time of Service: 01:35 Assessment and Plan (1) Abdominal pain: Start date: 03/04/19 Current visit: Yes Status: Acute This is a 38-year-old gentleman who presented with a couple day history of GI symptoms and reported bloody diarrhea and vomiting the day of admission. ED did not report any bloody diarrhea or vomiting and the EMS did see coffee-ground emesis the patient's home. Patient does have increased somatic complaints reported with his disease. Presentation is most likely that of gastroenteritis with viral etiology. We need to rest his bowel with IV hydration clear fluids diet covering his diabetes with glucometer short-acting insulin sliding scale. If he is not improving consider reimaging and surgical consultation. Qualifiers: Abdominal location: generalized Qualified Code(s): R10.84 - Generalized abdominal pain (2) Intractable vomiting: Start date: 03/05/19 Current visit: Yes Status: Acute Symptomatic care with bowel rest, Ativan will be given because the patient is also anxious with increased somatic complaints with even IV Dilaudid not lasting few minutes. We will continue Protonix and give Zofran as needed for residual nausea. Qualifiers: Nausea presence: with nausea Vomiting type: unspecified Qualified Code(s): R11.2 - Nausea with vomiting, unspecified (3) Diarrhea: Start date: 03/04/19 Current visit: Yes Status: Acute Bowel rest and follow clinically. Stool evaluations have been sent by the ED physician. Watch for the return of bloody diarrhea and consider surgical consultation if this occurs. Follow-up CBCs. Qualifiers: Diarrhea type: infectious Qualified Code(s): A09 - Infectious gastroenteritis and colitis, unspecified (4) Diabetes type 2, controlled: Current visit: Yes Status: Acute Start glucometer measurements with sliding scale short acting insulin co verage hold the patient's usual regimen. 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 On the day of admission the patient reported bloody stools and vomiting at home and the EMS did report some coffee grounds emesis that was seen at the house but patient throughout his ED evaluation had no further show up blood. He also is complaining of being diaphoretic and had hypotension when he was at his house when the EMS was picking him up. In the ED he had no further episodes of hypotension diaphoresis. He may have also had some chest discomfort. He is complaining of aches and pains over his back and to the base of his skull at the occiput. Muscle aches are associated with his GI symptoms. Evaluation in the ED did not reveal any etiology other than what appears to be gastroenteritis which may be most likely viral with this in the community recently. Being diabetic and having intractable symptoms with pain the patient was admitted for IV hydration and bowel rest as well as symptom control. He would also need c overage of his diabetes but not on his usual meds and diet. Review of systems positive for obesity with no complaints of chronic pain. His diabetes is been fairly well controlled recently with no hypoglycemic symptoms. He has no focal neurological complaints. Review of Systems Review of Systems 13 point review of systems otherwise unrevealing or as per HPI and ED reports 2 visits. 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 Do you feel safe at home: Yes Do you feel safe in your relationship?: Yes Meds Home Medications Medication Instructions Recorded Confirmed Type metformin 1,000 mg PO AC & HS 02/26/19 03/04/19 History metformin 500 mg PO .QHS 02/26/19 03/04/19 History spironolactone 25 mg PO DAILY 02/26/19 03/04/19 History Novolog Flexpen U-100 Insulin 10 unit TID 03/03/19 03/04/19 History insulin glargine 10 unit SUBCUT DAILY 03/03/19 03/04/19 History labetalol 300 mg BID 03/03/19 03/04/19 History Allergies Allergy/AdvReac Type Severity Reaction Status Date / Time lisinopril Allergy Anaphylaxsi Unverified 03/04/19 22:54 s lactose AdvReac Diarrhea Unverified 03/04/19 22:54 Exam Narrative Exam Narrative: General: Patient is morbidly obese and muscular in moderate distress from his abdominal discomfort and backache. He is alert and oriented x3. HEENT: Normocephalic with eyes equal and reactive to light symmetrically with extraocular movement intact and sclera anicteric. Oropharynx with dry oral mucosa and fair dentition with discoloration teeth. Ears are normal. Neck: Supple without JVD. No signs of meningismus. Patient has fair range of motion with some discomfort over the back of his neck with muscle tension. Lungs: Fair aeration with no focalizing findings. No rales or rhonchi no expiratory wheeze. Heart: Regular rate and rhythm without murmurs or gallops. Abdomen: Obese, soft slight guarding with tenderness diffusely and bowel sounds hypoactive in all quadrants. No rebound tenderness. No tympany percussion. No palpable hepatosplenomegaly but is limited by his obesity and slight guarding. Genitalia rectal exam: Deferred. Extremities: Moderate nonpitting edema with sensory changes of his larger joints of the legs with no clubbing cyanosis. Skin: Hot to touch and dry with multiple tattoos over the upper extremities. No rashes. Neuro: Cranial nerves II through XII grossly intact, no focalizing motor deficits and reflexes symmetric and physiologic. No Babinski's. Psych: Patient appears anxious with increased matization. Normal thought processes otherwise. Recent and remote memory intact. Results Imaging Imaging Studies: EXAM: CT Angiography Chest With Contrast EXAM DATE/TIME: 03/04/2019 10:28 PM CLINICAL HISTORY: 38 years old, male; Type not specified; Prior surgery; Surgery date: 6+ months; Surgery type: Appendix removed; Patient HX: Severe chest pain, hematemesis, back pain TECHNIQUE: Imaging protocol: Axial computed tomographic angiography images of the chest with intravenous contrast using CT angiography protocol. Coronal and sagittal reformatted images were created and reviewed. 3D rendering: MIP reconstructed images were created and reviewed. Radiation optimization: All CT scans at this facility use at least one of these dose optimization techniques: automated exposure control; mA and/or kV adjustment per patient size (includes targeted exams where dose is matched to clinical indication); or iterative reconstruction. Contrast material: OMNIPAQUE 350; Contrast volume: 100 ml; Contrast route: IV; COMPARISON: SC XR PORTABLE CHEST AP POST LINE 09/07/2018 3:26 PM FINDINGS: Pulmonary arteries: No acute pulmonary embolus. Aorta: No aneurysm or dissection of the thoracic aorta. Lungs: Normal. No consolidation. No masses. Pleural space: Normal. No pneumothorax. No pleural effusion. Heart: No cardiomegaly. No pericardial effusion. Lymph nodes: Unremarkable. No enlarged lymph nodes. Bones/joints: Unremarkable. No acute fracture. Soft tissues: Unremarkable. IMPRESSION: 1. No aneurysm or dissection of the thoracic aorta. 2. No acute pulmonary embolus. EXAM: CT Angiography Abdomen and Pelvis With Contrast EXAM DATE/TIME: 03/04/2019 10:28 PM CLINICAL HISTORY: 38 years old, male; Type not specified; Prior surgery; Surgery date: 6+ months; Surgery type: Appendix removed; Patient HX: Severe chest pain, hematemesis, back pain TECHNIQUE: Imaging protocol: Axial computed tomographic angiography images of the abdomen and pelvis with intravenous contrast material. Coronal and sagittal reformatted images were created and reviewed. 3D rendering: MIP reconstructed images were created and reviewed. Radiation optimization: All CT scans at this facility use at least one of these dose optimization techniques: automated exposure control; mA and/or kV adjustment per patient size (includes targeted exams where dose is matched to clinical indication); or iterative reconstruction. COMPARISON: SC XR PORTABLE CHEST AP POST LINE 09/07/2018 3:26 PM FINDINGS: VASCULATURE: Aorta: No aneurysm or dissection of the abdominal aorta. Celiac trunk and mesenteric arteries: No occlusion or significant stenosis. Renal arteries: No occlusion or significant stenosis. Right iliac arteries: No occlusion or significant stenosis. Left iliac arteries: No occlusion or significant stenosis. ABDOMEN: Liver: No mass. Gallbladder and bile ducts: Unremarkable. No calcified stones. No ductal dilation. Pancreas: Unremarkable. No mass. No ductal dilation. Spleen: Unremarkable. No splenomegaly. Adrenals: Unremarkable. No mass. Kidneys and ureters: Unremarkable. No solid mass. No hydronephrosis. Stomach and bowel: Unremarkable. No obstruction. No mucosal thickening. Appendix: Appendectomy. PELVIS: Bladder: Unremarkable. No mass. Reproductive: Unremarkable as visualized. ABDOMEN and PELVIS: Intraperitoneal space: Unremarkable. No free air. No significant fluid collection. Bones/joints: No acute fracture. No dislocation. Soft tissues: Unremarkable. Lymph nodes: Unremarkable. No enlarged lymph nodes. IMPRESSION: No aneurysm or dissection of the abdominal aorta. Dictated and Authenticated by: Cody Del Valle MD. Labs : 03/04/19 22:50 03/04/19 22:50 Laboratory Results - last 24 hr 03/04/19 03/04/19 03/04/19 22:50 22:50 22:50 WBC 9.36 RBC 4.84 Hgb 13.7 Hct 41.1 MCV 84.9 MCH 28.3 MCHC 33.3 RDW 14.9 H Plt Count 351 MPV 10.3 Immature Gran % 0.1 Neutrophils % 71.6 Lymphocytes % 15.7 Monocytes % 8.9 Eosinophils % 2.7 Basophils % 1.0 Absolute Neutrophils 6.71 H Absolute Lymphocytes 1.47 Absolute Monocytes 0.83 H Absolute Eosinophils 0.25 Absolute Basophils 0.09 PT 10.8 INR 1.1 APTT 24.5 VBG pH VBG pCO2 VBG pO2 VBG HCO3 VBG Total CO2 VBG O2 Saturation VBG Base Excess Sodium 142 Potassium 3.4 L Chloride 107 Carbon Dioxide 22.8 Anion Gap 12.2 H BUN 11 Creatinine 0.86 Estimated GFR/1.73 m2 >= 60.00 Glucose 96 Calcium 9.1 Magnesium Total Bilirubin 0.7 AST 41 H ALT 124 H Alkaline Phosphatase 73 Troponin I < 0.02 Total Protein 7.3 Albumin 3.5 Lipase 108 Urine Color Urine Clarity Urine pH Ur Specific [place] Urine Protein Urine Ketones Urine Blood Urine Nitrite Urine Bilirubin Urine Urobilinogen Ur Leukocyte Esterase Urine Glucose Patient ABO/Rh Antibody Screen 03/04/19 03/04/19 03/04/19 22:50 22:50 23:00 WBC RBC Hgb Hct MCV MCH MCHC RDW Plt Count MPV Immature Gran % Neutrophils % Lymphocytes % Monocytes % Eosinophils % Basophils % Absolute Neutrophils Absolute Lymphocytes Absolute Monocytes Absolute Eosinophils Absolute Basophils PT INR APTT VBG pH 7.42 VBG pCO2 35 VBG pO2 87 H VBG HCO3 23 VBG Total CO2 20 L VBG O2 Saturation 98 H VBG Base Excess -1.8 Sodium Potassium Chloride Carbon Dioxide Anion Gap BUN Creatinine Estimated GFR/1.73 m2 Glucose Calcium Magnesium 2.0 Total Bilirubin AST ALT Alkaline Phosphatase Troponin I Total Protein Albumin Lipase Urine Color Urine Clarity Urine pH Ur Specific [place] Urine Protein Urine Ketones Urine Blood Urine Nitrite Urine Bilirubin Urine Urobilinogen Ur Leukocyte Esterase Urine Glucose Patient ABO/Rh O Positive Antibody Screen Negative 03/04/19 23:45 WBC RBC Hgb Hct MCV MCH MCHC RDW Plt Count MPV Immature Gran % Neutrophils % Lymphocytes % Monocytes % Eosinophils % Basophils % Absolute Neutrophils Absolute Lymphocytes Absolute Monocytes Absolute Eosinophils Absolute Basophils PT INR APTT VBG pH VBG pCO2 VBG pO2 VBG HCO3 VBG Total CO2 VBG O2 Saturation VBG Base Excess Sodium Potassium Chloride Carbon Dioxide Anion Gap BUN Creatinine Estimated GFR/1.73 m2 Glucose Calcium Magnesium Total Bilirubin AST ALT Alkaline Phosphatase Troponin I Total Protein Albumin Lipase Urine Color Yellow Urine Clarity Clear Urine pH 5.5 Ur Specific [place] 1.025 Urine Protein Negative Urine Ketones Trace H Urine Blood Negative Urine Nitrite Negative Urine Bilirubin Negative Urine Urobilinogen 0.2 Ur Leukocyte Esterase Negative Urine Glucose Negative Patient ABO/Rh Antibody Screen Last Vital Signs Temp 37.2 C 03/04/19 22:20 Pulse 58 L 03/05/19 00:32 Resp 24 03/05/19 00:32 BP 135/58 L 03/05/19 00:32 Pulse Ox 96 03/05/19 00:32
[2019-03-05 01:49] LABS: *AMPHETAMINES SCREEN URINE Negative (Negative); *BARBITURATES SCREEN URINE Negative (Negative); *BENZODIAZEPINES SCREEN URINE Negative (Negative); Cannabinoids THC Negative (Negative); Cocaine Screen,Urine Negative (Negative); METHADONE URINE SCREEN Negative (Negative); OPIATES URINE SCREEN Negative (Negative)
[2019-03-05 01:58] LABS: Tricyclic Antidepressants Negative (Negative)
[2019-03-05] MEDS: POTASSIUM CHLORIDE/0.9% NACL 1,000 ML 125 MEQ IV ×4 (02:59→23:34)
[2019-03-05] MEDS: Acetaminophen 500 MG TAB 1000 MG PO ×4 (03:24→23:31)
[2019-03-05] MEDS: LORazepam 1 MG TAB PO (03:24)
[2019-03-05 07:04] LABS: HCT 39.4 % (40.0-50.0); HGB 12.9 g/dL (13.5-17.5); Mean Corp. HGB Concentration 32.7 g/dL (32.0-36.0); Mean Corpuscular Hemoglobin 28.3 pg (27.0-33.0); Mean Corpuscular Volume 86.4 fL (80-95); Mean Platelet Volume 10.1 fL (8.0-11.0); Platelet Count 309 x1000/uL (130-400); RBC 4.56 m/cumm (4.50-6.00); RBC Distribution Width 15.3 % (11.8-14.1); White Blood Cell Count 7.24 k/cumm (4.4-10.8)
[2019-03-05 07:29] LABS: ALT 132 U/L (12-78); AST 47 U/L (15-37); Albumin 3.1 g/dL (3.4-5.0); Alkaline Phosphatase 63 U/L (46-116); Anion Gap 11.7 mmol/L (3-11); BUN 11 mg/dL (7-18); Bilirubin, Total 0.7 mg/dL (0.2-1.0); CO2 22.3 mmol/L (21.0-32.0); CREATININE 0.91 mg/dL (0.70-1.30); Calcium 8.4 mg/dL (8.5-10.1); Chloride 108 mmol/L (98-107); Glucose 94 mg/dL (70-100); Potassium 3.5 mmol/L (3.5-5.1); Sodium 142 mmol/L (136-145); Total Protein 6.6 g/dL (6.4-8.2)
--- NOTE | 2019-03-05 08:20 | PDOC.CMIN ---
Care Management Initial Assess REASON FOR HOSPITALIZATION:: Abdominal Pain, Intractible emesis and diarrhea, NID PAST MEDICAL HISTORY/PAST SURGICAL HISTORY:: DM, Essential hypertension PREVIOUS FUNCTIONAL STATUS/SOCIAL/FAMILY SUPPORTS:: Miguelito resides with his , Justus in an apartment in [place] [facility]. He works full-time at [employer] in [place] [facility]. He has supportive family including his brother Brandon and his father, Vick. Miguelito at baseline is independent with ADLs and transportation. CURRENT FUNCTIONAL STATUS:: Miguelito was lying in bed with his eyes closed, he opened his eyes slightly and stated I'm really tired. CM let Miguelito know that his father Milton was in to see him, Miguelito requested to rest for now. CM left note for Miguelito from his Dad. ADVANCE DIRECTIVES:: None on file at [facility]; will be offered. Has patient been provided with information about the portal?: No Did the patient sign up for the portal?: No CODE STATUS:: Full Code INSURANCE COVERAGE / FINANCIAL ISSUES:: [facility] CURRENT HOME/COMMUNITY SERVICES/EQUIPMENT:: Diabetic education and supplies. PRIMARY CARE PHYSICIAN:: Jason Ruth NP POTENTIAL DISCHARGE NEEDS:: Expectations of transfer to [facility]. PATIENT/FAMILY EDUCATION NEEDS:: Discharge education, limitations, follow-up plan of care. ANTICIPATED BARRIERS TO DISCHARGE:: None identified at this time TRANSPORTATION:: Via private vehicle with his . PLAN:: Miguelito will continue to be closely monitored; he remains on bowel rest with IV hydration. Anticipate if he does not progress, he will have a surgical consultation and possible reimaging. CM will continue to follow and support discharge planning considerations.
--- NOTE | 2019-03-05 08:27 | INITIAL_ITS ---
Care Management Initial Assess REASON FOR HOSPITALIZATION:: Abdominal Pain, Intractible emesis and diarrhea, NID PAST MEDICAL HISTORY/PAST SURGICAL HISTORY:: DM, Essential hypertension PREVIOUS FUNCTIONAL STATUS/SOCIAL/FAMILY SUPPORTS:: Miguelito resides with his , Justus in an apartment in [facility]. He works full-time at [employer] in [facility]. He has supportive family including his brother Brandon and his father, Vick. Miguelito at baseline is independent with ADL s and transportation. CURRENT FUNCTIONAL STATUS:: Miguelito was lying in bed with his eyes closed, he opened his eyes slightly and stated I'm really tired. CM let Miguelito know that his father Milton was in to see him, Miguelito requested to rest for now. CM left note for Miguelito from his Dad. ADVANCE DIRECTIVES:: None on file at [facility]; will be offered. Has patient been provided with information about the portal?: No Did the patient sign up for the portal?: No CODE STATUS:: Full Code INSURANCE COVERAGE / FINANCIAL ISSUES:: [facility] CURRENT HOME/COMMUNITY SERVICES/EQUIPMENT:: Diabetic education and supplies. PRIMARY CARE PHYSICIAN:: Jason Ruth NP POTENTIAL DISCHARGE NEEDS:: Expectations of transfer to [facility]. PATIENT/FAMILY EDUCATION NEEDS:: Discharge education, limitations, follow-up plan of care. ANTICIPATED BARRIERS TO DISCHARGE:: None identified at this time TRANSPORTATION:: Via private vehicle with his . PLAN:: Miguelito will continue to be closely monitored; he remains on bowel rest with IV hydration. Anticipate if he does not progress, he will have a surgical consultation and possible reimaging. CM will continue to follow and support discharge planning considerations.
[2019-03-05] MEDS: Labetalol 100 MG TAB 300 MG PO ×2 (09:03→19:39)
[2019-03-05] MEDS: PANTOPRAZOLE 80 MG in Normal Saline 100 ML 10 MG IV (09:04)
--- NOTE | 2019-03-05 09:12 | PHARADMIT ---
Admission Pharmacy Clinical Review abdominal pain, intractable emesis and diarrhea Code Status Full Code Current Weight 184.3 kg Renally Cleared and Narrow Therapeutic Index Meds Crcl ~200 mL/min using adjusted body weight current meds okay QTc Value / Action Taken QTc 412 BP Control, Fever BP 147/84 afebrile Electrolytes reviewed Cl 108 DVT Prophylaxis no, blood in stool and vomit Opiate Usage / Scheduled Bowel Regimen Ordered prn/prn Plt/SCr for Heparin / Enoxaparin plt 309 SCr 0.91 INR for Warfarin n/a H/H stable, WBC/Bands h/h 12.9/39.4 wbc 7.24 Antibiotic appropriateness n/a Cultures and Sensitivities n/a Surgical ABX d/c within 24 hr n/a DM control / Insulin Dosing Bg 94 sliding scale aspart ordered Heart Failure (Check EF%) (GLENROY's, B-Block, Diuretics) labetalol IV to PO Switch n/a Home Meds Reviewed yes Home Meds Not Ordered insulin glargine, metformin, spironolactone Comments no n/v/d since admission per morning report currently has a pantoprazole drip ordered
--- NOTE | 2019-03-05 14:06 | SCONE_ITS ---
Date of service: 03/05/19 Time of Service: 14:05 Assessment and Plan (1) Anemia: Current visit: Yes Status: Chronic cont supportive care cont on H2 kanchan cultures and stool studies pd CT neg check c. diff plan EGD in am risks: Informed consent is obtained for the procedural (explained in simple layman's terms that the pt. and/or family could understand) explaining risks vs benefits and alternatives to the procedure and consequences if we do not do the procedure and need/rational for the procedure. Risks include but are not limited to: bleeding, infection, perforation of esophagus, stomach, colon, small intestines, bronchus or trachea, or PTX. This would necessitate emergency surgery to repair the damage w/ possible ostomy; and other associated complications w/ the required surgery. Also complications of anesthesia including aspiration, MA/CVA/. History of Present Illness Chief Complaint: GI bleed Narrative: pt was in ED on 03/03 from ED: 38 year old M presents to the emergency department with the chief complaint of Multiple episodes of loose stool and lightheaded at home without syncope, described as moderate, and is localized to the head. Patient reports no radiation. Patient started experiencing this hour(s) and it has been now resolved. No relieving factors improve symptom(s), No exacerbating factors reported . Patient notes diaphoresis, nausea/vomiting and other (Diarrhea); denies fever/chills and syncope. Patient did receive the following treatments prior to arrival, none * From ED on 03/04:HPI Narrative: This is a pleasant 38-year-old male who presents today for evaluation of vomiting with hematemesis, diarrhea with occasional bright red blood in his stools, in addition to chest pain, abdominal pain, as well as neck and back pain which she describes as stabbing in nature that was present yesterday. He was seen and assessed here in the ER yesterday, he had a thorough work-up, which showed no significant abnormalities requiring admission. He was discharged home with a reassuring clinical picture. Patient states that his symptoms continued throughout the day, and worsened tonight with the blood in his vomit and stool. He contacted EMS, and while getting driven over he developed a chest pain, became diaphoretic and notably lightheaded. Patient denies any other complaints. He denies any history of cardiac disease, dissection or aneurysm. Past medical history is positive for hypertension and diabetes type 2. Patient denies any other complaints at this time. He denies any other modifying factors. He denies any alcohol use, history of esophageal varices, or gastric ulcers. Today, pt is doing better. No N/V. no diarrhea today. He says he was vomiting up coffee grounds. He has not Hx of ulcer/reflux. He doesn't take asa/nsaids too often. He drinks lots of soda/energy drinks. Doesn't drink coffee or ETOH. His bowels are normally regular. No pain or difficulty w/ BM. denies straining or constipation. No wt loss. denies hemorrhoids. He says he is having abdominal pain in the epigasric position and LLQ area. He not on any stomach meds at home. He dos have stool studies and hemeoccult pd. He does have a hx of poorly controlled DM. No A1c on chart. s/p appendectomy Consults Consult date: 03/05/19 Requesting physician: Kathrin Poole Review of Systems Review of Systems All systems reviewed & are unremarkable except as noted in HPI and below Constitutional Reports as per HPI, Reports system reviewed and no additional complaints, except as docu, Denies anorexia, Denies chills, Denies difficulty sleeping, Denies fatigue, Denies headache(s), Denies lethargy, Denies malaise, Denies poor appetite, Denies weakness, Denies weight gain and Denies weight loss Comments: tolerating po's today. no diarrhea or nausea today Eyes Reports as per HPI, Reports system reviewed and no additional complaints, except as docu and Denies change in vision ENT Reports system reviewed and no additional complaints, except as docu, Reports as per HPI, Denies change in voice, Denies dental pain, Denies dysphagia, Denies dizziness, Denies facial pain, Denies headache(s) and Denies odynophagia Cardiovascular Reports as per HPI, Reports system reviewed and no additional complaints, except as docu, Denies chest pain, Denies chest pain with activity, Denies syncope, Denies leg edema and Denies dyspnea Respiratory Reports as per HPI, Reports system reviewed and no additional complaints, except as docu, Denies chest congestion, Denies cough, Denies pain with cough and Denies dyspnea Gastrointestinal Reports as per HPI, Reports system reviewed and no additional complaints, except as docu, Denies abdominal pain, Reports melena, Denies bloating, Denies change in bowel habits, Denies change in stool character, Reports coffee ground emesis, Denies constipation, Denies cramping, Denies dysphagia, Denies early satiety, Denies heartburn, Denies diarrhea, Reports loose stools, Denies nausea, Denies odynophagia and Denies vomiting Comments: c/o epigastric pain and LLQ pain. no one at home is ill. Step daughter has chronic diarrhea( for a week) and is seeing GI at [facility]. Pt does have hx of lactose intolerance. He does have a hx of poorly controlled DM. BS have been better lately. no fever/ or elevated WBC. CT was nl. Stool studies are still pd. hgb is still decreased and could be from dilution. no wt loss. no change in bowel habits. no family hx of IBD/IBS. no fam. Hx of CRC Genitourinary Reports system reviewed and no additional complaints, except as docu Musculoskeletal Reports system reviewed and no additional complaints, except as docu, Reports as per HPI, Denies abnormal gait, Denies arthralgias and Denies muscle weakness Integumentary/Breasts Reports system reviewed and no additional complaints, except as docu, Reports as per HPI, Denies changing lesions, Denies new lesions and Denies jaundice Comments: multi tattosos Neurologic Reports system reviewed and no additional complaints, except as docu, Reports as per HPI, Denies abnormal speech, Denies abnormal gait, Denies dizziness, Denies syncope, Denies headache(s), Denies memory loss and Denies weakness Psychiatric Reports system reviewed and no additional complaints, except as docu, Reports as per HPI, Denies change in appetite and Denies memory loss Endocrine Denies fatigue, Denies polydipsia and Denies polyuria Comments: DM. Hx of poor control. Hematologic/Lymphatic Reports system reviewed and no additional complaints, except as docu, Denies easy bleeding and Denies easy bruising Allergic/Immunologic Denies system reviewed and no additional complaints, except as docu, Reports as per HPI and Denies urticaria PFSH Medical History Anemia (Chronic) Abdominal pain (Acute) Diabetes type 2, controlled (Acute) Diabetes mellitus (Chronic) Essential hypertension (Chronic) Surgical History History of appendectomy (Resolved) Family History Father Diabetes Social History Smoking/Tobacco Use Status: Former Tobacco Use Alcohol Intake: never Drug use: Never Substance use type: does not use current occupation: [employer] Do you feel safe at home: Yes Do you feel safe in your relationship?: Yes Exam Const General: cooperative, healthy appearing, comfortable, no acute distress, well developed and well groomed Nutritional Appearance: average body habitus and well nourished Orientation: alert, awake and oriented x3 HENMT Head: normal to inspection, normocephalic and atraumatic Ears: hearing grossly normal bilaterally and external ears normal General nose exam: external nose normal Face and sinus: normal facial exam and sinuses nontender Mouth: oral mucosae normal, lip normal, tongue normal and moist mucous membranes Teeth and gingiva: dentition normal Eyes General: appearance normal, both eyes and all related structures Conjunctivae: conjunctivae normal Sclera: sclerae normal Pupils: PERRL Neck Neck: normal visual inspection and full ROM Chest Chest: normal inspection of the chest Resp Effort & Inspection: normal respiratory effort, able to speak in complete sentences, no cough, no nasal flaring, not tachypneic and no use of accessory muscles Auscultation: clear to auscultation bilaterally, no rales, no rhonchi and no wheezes Cardio Jugular venous pressure: no JVD Rate: regular rate Rhythm: regular rhythm GI Inspection: normal to inspection, no edema and non-distended Palpation: soft, no masses, nontender and No ascites Other: nl BS. no distention. obese. internal organs are not palpable. no hernias. Skin General skin exam: no rashes or lesions noted Trauma: no lacerations or abrasions Neuro General: alert, oriented x3, oriented, gait normal, moves all extremities, no focal motor deficits and CN's II-XI intact bilaterally Cognition: normal cognition Speech: speech normal Gait: normal gait Motor: muscle tone normal throughout Extrem General: normal to inspection, full ROM and no clubbing, cyanosis or edema Psych Appearance: grossly normal and well kempt Mental Status: mental status grossly normal Speech and Movement: speech and movement normal Affect: normal affect Results Last Vital Signs Temp 36.7 C 03/05/19 11:45 Pulse 68 03/05/19 11:45 Resp 18 03/05/19 11:45 BP 170/82 H 03/05/19 11:45 Pulse Ox 96 03/05/19 11:45 Labs : 03/05/19 14:15 03/05/19 06:45 Laboratory Results - last 24 hr 03/04/19 03/04/19 03/04/19 22:50 22:50 22:50 WBC 9.36 RBC 4.84 Hgb 13.7 Hct 41.1 MCV 84.9 MCH 28.3 MCHC 33.3 RDW 14.9 H Plt Count 351 MPV 10.3 Immature Gran % 0.1 Neutrophils % 71.6 Lymphocytes % 15.7 Monocytes % 8.9 Eosinophils % 2.7 Basophils % 1.0 Absolute Neutrophils 6.71 H Absolute Lymphocytes 1.47 Absolute Monocytes 0.83 H Absolute Eosinophils 0.25 Absolute Basophils 0.09 PT 10.8 INR 1.1 APTT 24.5 VBG pH VBG pCO2 VBG pO2 VBG HCO3 VBG Total CO2 VBG O2 Saturation VBG Base Excess Sodium 142 Potassium 3.4 L Chloride 107 Carbon Dioxide 22.8 Anion Gap 12.2 H BUN 11 Creatinine 0.86 Estimated GFR/1.73 m2 >= 60.00 Glucose 96 Calcium 9.1 Magnesium Total Bilirubin 0.7 AST 41 H ALT 124 H Alkaline Phosphatase 73 Troponin I < 0.02 Total Protein 7.3 Albumin 3.5 Lipase 108 Urine Color Urine Clarity Urine pH Ur Specific [place] Urine Protein Urine Ketones Urine Blood Urine Nitrite Urine Bilirubin Urine Urobilinogen Ur Leukocyte Esterase Urine Glucose Urine Opiates Screen Urine Methadone Screen Ur Barbiturates Screen Ur Tricyclics Screen Ur Amphetamines Screen U Benzodiazepines Scrn Urine Cocaine Screen Ur THC Screen Patient ABO/Rh Antibody Screen 03/04/19 03/04/19 03/04/19 22:50 22:50 23:00 WBC RBC Hgb Hct MCV MCH MCHC RDW Plt Count MPV Immature Gran % Neutrophils % Lymphocytes % Monocytes % Eosinophils % Basophils % Absolute Neutrophils Absolute Lymphocytes Absolute Monocytes Absolute Eosinophils Absolute Basophils PT INR APTT VBG pH 7.42 VBG pCO2 35 VBG pO2 87 H VBG HCO3 23 VBG Total CO2 20 L VBG O2 Saturation 98 H VBG Base Excess -1.8 Sodium Potassium Chloride Carbon Dioxide Anion Gap BUN Creatinine Estimated GFR/1.73 m2 Glucose Calcium Magnesium 2.0 Total Bilirubin AST ALT Alkaline Phosphatase Troponin I Total Protein Albumin Lipase Urine Color Urine Clarity Urine pH Ur Specific [place] Urine Protein Urine Ketones Urine Blood Urine Nitrite Urine Bilirubin Urine Urobilinogen Ur Leukocyte Esterase Urine Glucose Urine Opiates Screen Urine Methadone Screen Ur Barbiturates Screen Ur Tricyclics Screen Ur Amphetamines Screen U Benzodiazepines Scrn Urine Cocaine Screen Ur THC Screen Patient ABO/Rh O Positive Antibody Screen Negative 03/04/19 03/04/19 03/05/19 23:45 23:45 06:45 WBC RBC Hgb Hct MCV MCH MCHC RDW Plt Count MPV Immature Gran % Neutrophils % Lymphocytes % Monocytes % Eosinophils % Basophils % Absolute Neutrophils Absolute Lymphocytes Absolute Monocytes Absolute Eosinophils Absolute Basophils PT INR APTT VBG pH VBG pCO2 VBG pO2 VBG HCO3 VBG Total CO2 VBG O2 Saturation VBG Base Excess Sodium 142 Potassium 3.5 Chloride 108 H Carbon Dioxide 22.3 Anion Gap 11.7 H BUN 11 Creatinine 0.91 Estimated GFR/1.73 m2 >= 60.00 Glucose 94 Calcium 8.4 L Magnesium Total Bilirubin 0.7 AST 47 H ALT 132 H Alkaline Phosphatase 63 Troponin I Total Protein 6.6 Albumin 3.1 L Lipase Urine Color Yellow Urine Clarity Clear Urine pH 5.5 Ur Specific [place] 1.025 Urine Protein Negative Urine Ketones Trace H Urine Blood Negative Urine Nitrite Negative Urine Bilirubin Negative Urine Urobilinogen 0.2 Ur Leukocyte Esterase Negative Urine Glucose Negative Urine Opiates Screen Negative Urine Methadone Screen Negative Ur Barbiturates Screen Negative Ur Tricyclics Screen Negative Ur Amphetamines Screen Negative U Benzodiazepines Scrn Negative Urine Cocaine Screen Negative Ur THC Screen Negative Patient ABO/Rh Antibody Screen 03/05/19 06:45 WBC 7.24 RBC 4.56 Hgb 12.9 L Hct 39.4 L MCV 86.4 MCH 28.3 MCHC 32.7 RDW 15.3 H Plt Count 309 MPV 10.1 Immature Gran % Neutrophils % Lymphocytes % Monocytes % Eosinophils % Basophils % Absolute Neutrophils Absolute Lymphocytes Absolute Monocytes Absolute Eosinophils Absolute Basophils PT INR APTT VBG pH VBG pCO2 VBG pO2 VBG HCO3 VBG Total CO2 VBG O2 Saturation VBG Base Excess Sodium Potassium Chloride Carbon Dioxide Anion Gap BUN Creatinine Estimated GFR/1.73 m2 Glucose Calcium Magnesium Total Bilirubin AST ALT Alkaline Phosphatase Troponin I Total Protein Albumin Lipase Urine Color Urine Clarity Urine pH Ur Specific [place] Urine Protein Urine Ketones Urine Blood Urine Nitrite Urine Bilirubin Urine Urobilinogen Ur Leukocyte Esterase Urine Glucose Urine Opiates Screen Urine Methadone Screen Ur Barbiturates Screen Ur Tricyclics Screen Ur Amphetamines Screen U Benzodiazepines Scrn Urine Cocaine Screen Ur THC Screen Patient ABO/Rh Antibody Screen
[2019-03-05 14:35] LABS: HCT 40.4 % (40.0-50.0); HGB 13.2 g/dL (13.5-17.5)
[2019-03-05] MEDS: FAMOTIDINE 20 MG/50 ML BAG 200 MG IVPB (16:55)
--- NOTE | 2019-03-05 17:23 | PGE_ITS ---
Date of Service Date of service: 03/05/19 Time of Service: 17:21 Subjective Interval history since last seen: Mr. Villatoro reports ongoing abdominal tenderness, he is no Objective Objective Clinical Data: Abnormal lab results 03/04/19 03/04/19 03/04/19 Range/Units 22:50 22:50 22:50 Hgb (13.5-17.5) g/dL Hct (40.0-50.0) % RDW 14.9 H (11.8-14.1) % Absolute Neutrophils 6.71 H (1.2-6.7) k/cumm Absolute Monocytes 0.83 H (0.11-0.7) k/cumm VBG pO2 87 H (28-44) mm/Hg VBG Total CO2 20 L (22-29) mmol/L VBG O2 Saturation 98 H (70-80) % Potassium 3.4 L (3.5-5.1) mmol/L Chloride (98-107) mmol/L Anion Gap 12.2 H (3-11) mmol/L Calcium (8.5-10.1) mg/dL AST 41 H (15-37) U/L ALT 124 H (12-78) U/L Albumin (3.4-5.0) g/dL Urine Ketones (Negative) mg/dL 03/04/19 03/05/19 03/05/19 Range/Units 23:45 06:45 06:45 Hgb 12.9 L (13.5-17.5) g/dL Hct 39.4 L (40.0-50.0) % RDW 15.3 H (11.8-14.1) % Absolute Neutrophils (1.2-6.7) k/cumm Absolute Monocytes (0.11-0.7) k/cumm VBG pO2 (28-44) mm/Hg VBG Total CO2 (22-29) mmol/L VBG O2 Saturation (70-80) % Potassium (3.5-5.1) mmol/L Chloride 108 H (98-107) mmol/L Anion Gap 11.7 H (3-11) mmol/L Calcium 8.4 L (8.5-10.1) mg/dL AST 47 H (15-37) U/L ALT 132 H (12-78) U/L Albumin 3.1 L (3.4-5.0) g/dL Urine Ketones Trace H (Negative) mg/dL 03/05/19 Range/Units 14:15 Hgb 13.2 L (13.5-17.5) g/dL Hct (40.0-50.0) % RDW (11.8-14.1) % Absolute Neutrophils (1.2-6.7) k/cumm Absolute Monocytes (0.11-0.7) k/cumm VBG pO2 (28-44) mm/Hg VBG Total CO2 (22-29) mmol/L VBG O2 Saturation (70-80) % Potassium (3.5-5.1) mmol/L Chloride (98-107) mmol/L Anion Gap (3-11) mmol/L Calcium (8.5-10.1) mg/dL AST (15-37) U/L ALT (12-78) U/L Albumin (3.4-5.0) g/dL Urine Ketones (Negative) mg/dL Vital Signs Temperature 37.0 C 03/05/19 15:40 Temperature Source Tympanic 03/05/19 15:40 Pulse 62 03/05/19 15:40 Pulse Rhythm Regular 03/05/19 09:23 Pulse 65 03/05/19 02:02 Respiratory Rate 20 03/05/19 15:40 Respiratory Effort Non-Labored 03/05/19 09:23 Respiratory Depth Normal 03/05/19 09:23 Respiratory Pattern Normal 03/05/19 09:23 Blood Pressure 144/86 H 03/05/19 15:40 Blood Pressure Mean 81 03/05/19 02:02 Blood Pressure Position Supine 03/04/19 22:20 Pulse Oximetry 97 03/05/19 15:40 Oxygen Delivery Method Room Air 03/05/19 15:40 Oxygen Flow Rate 0 03/05/19 15:40 Pain Level 4 03/05/19 13:14 Intake & Output 03/04/19 03/05/19 03/05/19 23:59 11:59 23:59 Intake Total 2466.500 / 3293.583 827.083 / 3293.583 Output Total 475 / 475 Balance 1991.500 / 2818.583 827.083 / 2818.583 Weight 184.9 kg 184.3 kg Intake: IV 2066.500 / 2893.583 827.083 / 2893.583 Oral 400 / 400 Output: Urine 475 / 475 Other: Urine Color Light Hailee Dark Hailee Urine Appearance Clear Urine Odor Normal Voiding Methods Urinal Laboratory Results WBC 7.24 k/cumm (4.4-10.8) 03/05/19 06:45 RBC 4.56 m/cumm (4.50-6.00) 03/05/19 06:45 Hgb 13.2 g/dL (13.5-17.5) L 03/05/19 14:15 Hct 40.4 % (40.0-50.0) 03/05/19 14:15 MCV 86.4 fL (80-95) 03/05/19 06:45 MCH 28.3 pg (27.0-33.0) 03/05/19 06:45 MCHC 32.7 g/dL (32.0-36.0) 03/05/19 06:45 RDW 15.3 % (11.8-14.1) H 03/05/19 06:45 Plt Count 309 x1000/uL (130-400) 03/05/19 06:45 MPV 10.1 fL (8.0-11.0) 03/05/19 06:45 Immature Gran % 0.1 03/04/19 22:50 Neutrophils % 71.6 03/04/19 22:50 Lymphocytes % 15.7 03/04/19 22:50 Monocytes % 8.9 03/04/19 22:50 Eosinophils % 2.7 03/04/19 22:50 Basophils % 1.0 03/04/19 22:50 Absolute Neutrophils 6.71 k/cumm (1.2-6.7) H 03/04/19 22:50 Absolute Lymphocytes 1.47 k/cumm (1.2-3.4) 03/04/19 22:50 Absolute Monocytes 0.83 k/cumm (0.11-0.7) H 03/04/19 22:50 Absolute Eosinophils 0.25 k/cumm (0.0-0.7) 03/04/19 22:50 Absolute Basophils 0.09 k/cumm (0.0-0.2) 03/04/19 22:50 PT 10.8 sec (9.3-11.0) 03/04/19 22:50 INR 1.1 (0.9-1.1) 03/04/19 22:50 APTT 24.5 sec (21.0-31.4) 03/04/19 22:50 VBG pH 7.42 (7.32-7.43) 03/04/19 22:50 VBG pCO2 35 mm/Hg (34-47) 03/04/19 22:50 VBG pO2 87 mm/Hg (28-44) H 03/04/19 22:50 VBG HCO3 23 mmol/L (22-28) 03/04/19 22:50 VBG Total CO2 20 mmol/L (22-29) L 03/04/19 22:50 VBG O2 Saturation 98 % (70-80) H 03/04/19 22:50 VBG Base Excess -1.8 mmol/L (-3-3) 03/04/19 22:50 Sodium 142 mmol/L (136-145) 03/05/19 06:45 Potassium 3.5 mmol/L (3.5-5.1) 03/05/19 06:45 Chloride 108 mmol/L (98-107) H 03/05/19 06:45 Carbon Dioxide 22.3 mmol/L (21.0-32.0) 03/05/19 06:45 Anion Gap 11.7 mmol/L (3-11) H 03/05/19 06:45 BUN 11 mg/dL (7-18) 03/05/19 06:45 Creatinine 0.91 mg/dL (0.70-1.30) 03/05/19 06:45 Estimated GFR/1.73 m2 >= 60.00 (mL/min/1.73m2) 03/05/19 06:45 Glucose 94 mg/dL (70-100) 03/05/19 06:45 Calcium 8.4 mg/dL (8.5-10.1) L 03/05/19 06:45 Magnesium 2.0 mg/dL (1.8-2.4) 03/04/19 22:50 Total Bilirubin 0.7 mg/dL (0.2-1.0) 03/05/19 06:45 AST 47 U/L (15-37) H 03/05/19 06:45 ALT 132 U/L (12-78) H 03/05/19 06:45 Alkaline Phosphatase 63 U/L (46-116) 03/05/19 06:45 Troponin I < 0.02 ng/mL (0.00-0.06) 03/04/19 22:50 Total Protein 6.6 g/dL (6.4-8.2) 03/05/19 06:45 Albumin 3.1 g/dL (3.4-5.0) L 03/05/19 06:45 Lipase 108 U/L (73-393) 03/04/19 22:50 Urine Color Yellow (Yellow) 03/04/19 23:45 Urine Clarity Clear 03/04/19 23:45 Urine pH 5.5 (5-8) 03/04/19 23:45 Ur Specific [place] 1.025 (1.005-1.025) 03/04/19 23:45 Urine Protein Negative mg/dL (Negative) 03/04/19 23:45 Urine Ketones Trace mg/dL (Negative) H 03/04/19 23:45 Urine Blood Negative (Negative) 03/04/19 23:45 Urine Nitrite Negative (Negative) 03/04/19 23:45 Urine Bilirubin Negative (Negative) 03/04/19 23:45 Urine Urobilinogen 0.2 EU/dL (Up TO 0.2) 03/04/19 23:45 Ur Leukocyte Esterase Negative (Negative) 03/04/19 23:45 Urine Glucose Negative mg/dL (Negative) 03/04/19 23:45 Urine Opiates Screen Negative (Negative) 03/04/19 23:45 Urine Methadone Screen Negative (Negative) 03/04/19 23:45 Ur Barbiturates Screen Negative (Negative) 03/04/19 23:45 Ur Tricyclics Screen Negative (Negative) 03/04/19 23:45 Ur Amphetamines Screen Negative (Negative) 03/04/19 23:45 U Benzodiazepines Scrn Negative (Negative) 03/04/19 23:45 Urine Cocaine Screen Negative (Negative) 03/04/19 23:45 Ur THC Screen Negative (Negative) 03/04/19 23:45 Patient ABO/Rh O Positive 03/04/19 23:00 Antibody Screen Negative 03/04/19 23:00
[2019-03-05] MEDS: Pantoprazole 40 MG VIAL IVP (19:41)
[2019-03-05] MEDS: Normal Saline Flush 10 ML SYR IV (19:41)
[2019-03-05 22:25] LABS: HCT 40.6 % (40.0-50.0); HGB 13.2 g/dL (13.5-17.5)
[2019-03-06] VITALS (15 sets, daily range): BP systolic 145–180; BP diastolic 60–111; PULSE 55–78; RESP 17–20; TEMP 36.1–37.5; O2SAT 95–99
[2019-03-06] MEDS: FAMOTIDINE 20 MG/50 ML BAG 200 MG IVPB ×2 (03:48→17:11)
[2019-03-06] MEDS: POTASSIUM CHLORIDE/0.9% NACL 1,000 ML 125 MEQ IV ×2 (06:57→17:18)
[2019-03-06 07:29] LABS: Abs Immature Grans 0.08 k/cumm (0.0-0.09); Absolute Basophil Count 0.23 k/cumm (0.0-0.2); Absolute Eosinophil Count 0.68 k/cumm (0.0-0.7); Absolute Lymphocyte Count 1.37 k/cumm (1.2-3.4); Absolute Monocyte Count 0.63 k/cumm (0.11-0.7); Absolute Neutrophil Count 5.21 k/cumm (1.2-6.7); Basophils % 2.8; Eosinophils % 8.3; HCT 40.6 % (40.0-50.0); HGB 13.3 g/dL (13.5-17.5); Lymphocytes % 16.7; Mean Corp. HGB Concentration 32.8 g/dL (32.0-36.0); Mean Corpuscular Hemoglobin 28.4 pg (27.0-33.0); Mean Corpuscular Volume 86.8 fL (80-95); Mean Platelet Volume 10.7 fL (8.0-11.0); Monocytes % 7.7; Neutrophils % 63.5; Platelet Count 278 x1000/uL (130-400); RBC 4.68 m/cumm (4.50-6.00); RBC Distribution Width 15.3 % (11.8-14.1)
[2019-03-06 07:46] LABS: Anion Gap 14.4 mmol/L (3-11); BUN 10 mg/dL (7-18); CO2 17.6 mmol/L (21.0-32.0); CREATININE 0.76 mg/dL (0.70-1.30); Calcium 8.6 mg/dL (8.5-10.1); Chloride 108 mmol/L (98-107); Glucose 80 mg/dL (70-100); Potassium 4.1 mmol/L (3.5-5.1); Sodium 140 mmol/L (136-145)
[2019-03-06] MEDS: HYDROmorphone 2 MG/ML VIAL 0.5 MG IVP (09:39)
[2019-03-06] MEDS: Normal Saline Flush 10 ML SYR IV (09:40)
--- NOTE | 2019-03-06 10:21 | STOM_PTH ---
PATIENT: Miguelito Villatoro LOC: [facility]#:[id number] AGE/SX: 38/M ROOM: RE03/05/[address]: Kathrin Poole : 1980 BED: A DIS: 03/07/2019 SPEC #: [id number] RECD: 03/06/19 12:52 STATUS: UZIEL REGayle #: [id number] [place]: 03/06/19 10:[address]: Philip Maciel DEPT: Surgical Specimen RECD BY: Annie Brewster ENTERED: 03/06/19 12:54 SP TYPE: STOMACH OTHR DR: Jason Ruth Laura M Tissues: 1 - BIOPSY BOWEL 2 - STOMACH BIOPSY 3 - STOMACH BIOPSY 4 - ESOPHAGUS BIOPSY 5 - ESOPHAGUS BIOPSY 6 - STOMACH BIOPSY Procedures: GROSS AND MICRO LEVEL 4 IMMUNOPEROXIDASE STAIN Comments: [id number]
--- NOTE | 2019-03-06 10:33 | W.PM.ENDDOP ---
Date of service: 03/06/19 Time of Service: 10:33 Endoscopy Report DATE OF PROCEDURE: 03/06/19 PRE-OP DIAGNOSIS: hematochezia/anemia/GI bleed POST-OP DIAGNOSIS: other (gastritis) PROCEDURE: egd w/ Bx SURGEON: Shari Snyder ANESTHESIA: GETA ESTIMATED BLOOD LOSS: 2 PATHOLOGY: other COMPLICATIONS: None DISPOSITION: PACU PROCEDURE DESCRIPTION: After informed consent was obtained the patient was take to the procedure room and placed in a supine position. Monitors were applied and a time out was done. The patients name, date of , procedure type, allergies to medications and metal in their body was reviewed. A bite block was placed and the patient was sedated. Once sedated and comfortable the gastroscope was advanced through the oropharynx which was grossly normal into the esophagus. The proximal and mid-esophagus were nl. In the distal esophagus there was minimal esophagitis. The scope was advanced into the stomach and through the pylorus into the 3rd portion of the duodenum. The duodenum was noted to be: mild redness . Biopsies were done. The scope was retracted back into the stomach and biopsies were done to rule out H. pylori. There were no ulcers. The scope was retroflexed. At the cardia- there is moderate redness. - bx were taken. The fundus were noted to be normal. There is no active or old blood. There is no hiatal hernia noted. The scope was retracted back into the esophagus and biopsies were done of the GE junction to rule out Calvillo's. The Z line was regular. The GE junction was at 40 cm. The scope was removed and the patient was woken up and taken back to med surg in stable condition. A/PPI stop energy drinks/soda controll blood sugars
[2019-03-06 11:13] LABS: Lyme Ab w Rflx to Lyme Confirm Negative
[2019-03-06] MEDS: Pantoprazole 40 MG VIAL IVP ×2 (11:16→20:16)
[2019-03-06] MEDS: Acetaminophen 500 MG TAB 1000 MG PO ×3 (11:17→23:16)
[2019-03-06] MEDS: Normal Saline Flush 10 ML SYR IVP ×2 (11:17→20:16)
[2019-03-06] MEDS: Labetalol 100 MG TAB 300 MG PO ×2 (11:17→20:15)
--- NOTE | 2019-03-06 11:56 | W.PM.PROGNOT ---
Date of Service Date of service: 03/06/19 Time of Service: 11:56 Assessment and Plan (1) Anemia: Current visit: Yes Status: Chronic stable on PPI (2) Abdominal pain: Current visit: Yes Status: Acute Qualifiers: Abdominal location: generalized Qualified Code(s): R10.84 - Generalized abdominal pain (3) Diabetes type 2, controlled: Current visit: Yes Status: Acute Qualifiers: Diabetes mellitus mcfp insulin use: with mcfp use Diabetes mellitus complication status: without complication Qualified Code(s): E11.9 - Type 2 diabetes mellitus without complications; Z79.4 - care home (current) use of insulin (4) Diarrhea: Current visit: Yes Status: Acute nothing since he has been in hosp hgb 13.5 Qualifiers: Diarrhea type: infectious Qualified Code(s): A09 - Infectious gastroenteritis and colitis, unspecified (5) Intractable vomiting: Current visit: Yes Status: Acute pt hungry and wants to eat if tolerates this- d/c home Qualifiers: Vomiting type: unspecified Nausea presence: with nausea Qualified Code(s): R11.2 - Nausea with vomiting, unspecified (6) Gastritis: Current visit: Yes Status: Acute cont on PPI Subjective Interval history since last seen: pt is doing well. no n/v. no diarrhea since been in hosp. no BM since been in hosp. no bleeding rectally. + hungry. pt notes he does have epigastric pain. no H/I. started on PPI. Exam Const Other: no CP no SOB no cough GI Other: minimal epigastric pain Objective Objective Clinical Data: Abnormal lab results 03/05/19 03/05/19 03/06/19 Range/Units 14:15 21:58 07:07 Hgb 13.2 L 13.2 L (13.5-17.5) g/dL RDW (11.8-14.1) % Absolute Basophils (0.0-0.2) k/cumm Chloride 108 H (98-107) mmol/L Carbon Dioxide 17.6 L (21.0-32.0) mmol/L Anion Gap 14.4 H (3-11) mmol/L 03/06/19 Range/Units 07:07 Hgb 13.3 L (13.5-17.5) g/dL RDW 15.3 H (11.8-14.1) % Absolute Basophils 0.23 H (0.0-0.2) k/cumm Chloride (98-107) mmol/L Carbon Dioxide (21.0-32.0) mmol/L Anion Gap (3-11) mmol/L Vital Signs Temperature 36.1 C L 03/06/19 07:35 Temperature Source Tympanic 03/06/19 07:35 Pulse 66 03/06/19 07:35 Pulse Rhythm Regular 03/05/19 20:35 Pulse 65 03/05/19 02:02 Respiratory Rate 18 03/06/19 07:35 Respiratory Effort Non-Labored 03/05/19 20:35 Respiratory Depth Normal 03/05/19 20:35 Respiratory Pattern Normal 03/05/19 20:35 Blood Pressure 159/82 H 03/06/19 07:35 Blood Pressure Mean 81 03/05/19 02:02 Blood Pressure Position Supine 03/04/19 22:20 Pulse Oximetry 99 03/06/19 07:35 Oxygen Delivery Method Room Air 03/06/19 07:35 Oxygen Flow Rate 0 03/06/19 07:35 Pain Level 7 03/06/19 09:39 Intake & Output 03/05/19 03/05/19 03/06/19 11:59 23:59 11:59 Intake Total 2466.500 / 4227.750 1761.250 / 4227.750 937.500 / 937.500 Output Total 475 / 725 250 / 725 450 / 450 Balance 1991.500 / 3502.750 1511.250 / 3502.750 487.500 / 487.500 Weight 184.3 kg 184.1 kg Intake: IV 2066.500 / 3827.750 1761.250 / 3827.750 937.500 / 937.500 Oral 400 / 400 Output: Urine 475 / 725 250 / 725 450 / 450 Other: Urine Color Light Hailee Yellow Dark Hailee Dark Hailee Urine Appearance Clear Clear Clear Urine Odor Normal Comment said she emptied. not seen by nursing. Voiding Methods Urinal Urinal Urinal Laboratory Results WBC 8.20 k/cumm (4.4-10.8) 03/06/19 07:07 RBC 4.68 m/cumm (4.50-6.00) 03/06/19 07:07 Hgb 13.3 g/dL (13.5-17.5) L 03/06/19 07:07 Hct 40.6 % (40.0-50.0) 03/06/19 07:07 MCV 86.8 fL (80-95) 03/06/19 07:07 MCH 28.4 pg (27.0-33.0) 03/06/19 07:07 MCHC 32.8 g/dL (32.0-36.0) 03/06/19 07:07 RDW 15.3 % (11.8-14.1) H 03/06/19 07:07 Plt Count 278 x1000/uL (130-400) 03/06/19 07:07 MPV 10.7 fL (8.0-11.0) 03/06/19 07:07 Immature Gran % 1.0 03/06/19 07:07 Neutrophils % 63.5 03/06/19 07:07 Lymphocytes % 16.7 03/06/19 07:07 Monocytes % 7.7 03/06/19 07:07 Eosinophils % 8.3 03/06/19 07:07 Basophils % 2.8 03/06/19 07:07 Absolute Neutrophils 5.21 k/cumm (1.2-6.7) 03/06/19 07:07 Absolute Lymphocytes 1.37 k/cumm (1.2-3.4) 03/06/19 07:07 Absolute Monocytes 0.63 k/cumm (0.11-0.7) 03/06/19 07:07 Absolute Eosinophils 0.68 k/cumm (0.0-0.7) 03/06/19 07:07 Absolute Basophils 0.23 k/cumm (0.0-0.2) H 03/06/19 07:07 PT 10.8 sec (9.3-11.0) 03/04/19 22:50 INR 1.1 (0.9-1.1) 03/04/19 22:50 APTT 24.5 sec (21.0-31.4) 03/04/19 22:50 VBG pH 7.42 (7.32-7.43) 03/04/19 22:50 VBG pCO2 35 mm/Hg (34-47) 03/04/19 22:50 VBG pO2 87 mm/Hg (28-44) H 03/04/19 22:50 VBG HCO3 23 mmol/L (22-28) 03/04/19 22:50 VBG Total CO2 20 mmol/L (22-29) L 03/04/19 22:50 VBG O2 Saturation 98 % (70-80) H 03/04/19 22:50 VBG Base Excess -1.8 mmol/L (-3-3) 03/04/19 22:50 Sodium 140 mmol/L (136-145) 03/06/19 07:07 Potassium 4.1 mmol/L (3.5-5.1) 03/06/19 07:07 Chloride 108 mmol/L (98-107) H 03/06/19 07:07 Carbon Dioxide 17.6 mmol/L (21.0-32.0) L 03/06/19 07:07 Anion Gap 14.4 mmol/L (3-11) H 03/06/19 07:07 BUN 10 mg/dL (7-18) 03/06/19 07:07 Creatinine 0.76 mg/dL (0.70-1.30) 03/06/19 07:07 Estimated GFR/1.73 m2 >= 60.00 (mL/min/1.73m2) 03/06/19 07:07 Glucose 80 mg/dL (70-100) 03/06/19 07:07 Calcium 8.6 mg/dL (8.5-10.1) 03/06/19 07:07 Magnesium 2.0 mg/dL (1.8-2.4) 03/06/19 07:07 Total Bilirubin 0.7 mg/dL (0.2-1.0) 03/05/19 06:45 AST 47 U/L (15-37) H 03/05/19 06:45 ALT 132 U/L (12-78) H 03/05/19 06:45 Alkaline Phosphatase 63 U/L (46-116) 03/05/19 06:45 Troponin I < 0.02 ng/mL (0.00-0.06) 03/04/19 22:50 Total Protein 6.6 g/dL (6.4-8.2) 03/05/19 06:45 Albumin 3.1 g/dL (3.4-5.0) L 03/05/19 06:45 Lipase 108 U/L (73-393) 03/04/19 22:50 Urine Color Yellow (Yellow) 03/04/19 23:45 Urine Clarity Clear 03/04/19 23:45 Urine pH 5.5 (5-8) 03/04/19 23:45 Ur Specific [place] 1.025 (1.005-1.025) 03/04/19 23:45 Urine Protein Negative mg/dL (Negative) 03/04/19 23:45 Urine Ketones Trace mg/dL (Negative) H 03/04/19 23:45 Urine Blood Negative (Negative) 03/04/19 23:45 Urine Nitrite Negative (Negative) 03/04/19 23:45 Urine Bilirubin Negative (Negative) 03/04/19 23:45 Urine Urobilinogen 0.2 EU/dL (Up TO 0.2) 03/04/19 23:45 Ur Leukocyte Esterase Negative (Negative) 03/04/19 23:45 Urine Glucose Negative mg/dL (Negative) 03/04/19 23:45 Urine Opiates Screen Negative (Negative) 03/04/19 23:45 Urine Methadone Screen Negative (Negative) 03/04/19 23:45 Ur Barbiturates Screen Negative (Negative) 03/04/19 23:45 Ur Tricyclics Screen Negative (Negative) 03/04/19 23:45 Ur Amphetamines Screen Negative (Negative) 03/04/19 23:45 U Benzodiazepines Scrn Negative (Negative) 03/04/19 23:45 Urine Cocaine Screen Negative (Negative) 03/04/19 23:45 Ur THC Screen Negative (Negative) 03/04/19 23:45 Lyme Disease Antibody Negative 03/05/19 02:25 Patient ABO/Rh O Positive 03/04/19 23:00 Antibody Screen Negative 03/04/19 23:00
[2019-03-06 13:16] LABS: Hemoglobin A1C 5.5 % (4.5-6.2)
[2019-03-06] MEDS: Mylanta Suspension 30 ML CUP PO (13:30)
--- NOTE | 2019-03-06 14:17 | PGE_ITS ---
Date of Service Date of service: 03/06/19 Time of Service: 14:15 Assessment and Plan (1) Abdominal pain: Current visit: Yes Status: Acute Continues to have abdominal pain. Had EGD with Dr. Snyder today. Mild redness noted on EGD, biopsies pending. He was initially on Protonix drip. Currently on IV Protonix boluses. His hemoglobin and hematocrit are stable. General surgery recommends continue PPI, advance diet, discharge home when tolerating diet. However, he had increased nausea and was unable to tolerate his diet. He will continue to advance as tolerated. Continue IV fluids until taking orals well. Avoid NSAIDs. Zofran for nausea. Likely for discharge tomorrow. Qualifiers: Abdominal location: generalized Qualified Code(s): R10.84 - Generalized abdominal pain (2) Back pain: Current visit: Yes Status: Acute Acute on chronic back pain along his cervical and thoracic spine. CT imaging normal per radiology. Avoid NSAIDs due anemia in the setting of hematemesis and hematochezia. Place Lidoderm patches. Muscle relaxant considered, however, he continues to report dizziness, hold off on muscle relaxants for now until dizziness improves. He will need to follow-up with his primary care provider for possible MRI if his back pain persists. He should remain out of work until his follow-up with his primary care provider. (3) Gastritis: Current visit: Yes Status: Acute No further hematemesis or hematochezia. As above, continue PPI. He will need to be discharged home on PPI therapy. (4) Anemia: Current visit: Yes Status: Chronic Hemoglobin and hematocrit stable. Continue to monitor. (5) Diabetes type 2, controlled: Current visit: Yes Status: Acute Blood glucose appears to be tightly controlled. This may be contributing to his sensation of dizziness he has been seen by endocrinology, Dr. Martinez at [facility]. Decrease short acting insulin while here in the hospital to sensitive scale. Decrease home dose of metformin and Lantus upon discharge home. He will need to follow-up with endocrinology. Qualifiers: Diabetes mellitus intermediate insulin use: with terminal supervisor use Diabetes mellitus complication status: without complication Qualified Code(s): E11.9 - Type 2 diabetes mellitus without complications; Z79.4 - correction (current) use of insulin (6) Diarrhea: Current visit: Yes Status: Acute Resolved. Qualifiers: Diarrhea type: infectious Qualified Code(s): A09 - Infectious gastroenteritis and colitis, unspecified (7) Intractable vomiting: Current visit: Yes Status: Acute Resolved. Qualifiers: Vomiting type: unspecified Nausea presence: with nausea Qualified Code(s): R11.2 - Nausea with vomiting, unspecified (8) DVT prophylaxis: Current visit: No Status: Acute Hold chemical DVT prophylaxis in the setting of hematemesis and hematochezia in this 38-year-old ambulatory patient. SCDs while in bed. Subjective Interval history since last seen: Mr Villatoro had an EGD today. He attempted to advance his diet after the procedure and became nauseated. He has not vomited or had diarrhea since he has been hospitalized. He continues to report cramping abdominal pain. His hemoglobin has remained stable. He denies using any NSAIDs prior to his hospitalization. He continues to have pain along his cervical and thoracic spine that is intermittent. He continues to have a dizzy sensation upon standing. He reports fairly tight control of his blood glucose at home. He denies chest pain/pressure, palpitations. He was on telemetry overnight and remained in normal sinus rhythm. He had no orthostatic changes upon orthostatic vital sign assessment. He denies shortness of breath, coughing or wheezing. Exam Narrative Exam Narrative: General: overweight man, appears older than stated age, laying nearly flat in bed, in NAD. He is alert and oriented, pleasant and cooperative, answers questions appropriately. HEENT: Normocephalic, atraumatic, pupils are equal and round, EOMs intact, no nystagmus, mucous membranes moist. Neck: Supple, no JVD. Cardiovascular: Heart has regular rate and rhythm, no murmur appreciated. Respiratory: Respirations even and unlabored, lung sounds clear to auscultation throughout. GI: Large abdomen, nondistended, hypoactive bowel sounds, tenderness on palpation of epigastric region, around umbilicus and along right side of abdomen. Extremities: Moves all extremities freely. Bilateral lower extremities without clubbing, cyanosis or pitting edema. Objective Objective Clinical Data: Abnormal lab results 03/05/19 03/05/19 03/06/19 Range/Units 14:15 21:58 07:07 Hgb 13.2 L 13.2 L (13.5-17.5) g/dL RDW (11.8-14.1) % Absolute Basophils (0.0-0.2) k/cumm Chloride 108 H (98-107) mmol/L Carbon Dioxide 17.6 L (21.0-32.0) mmol/L Anion Gap 14.4 H (3-11) mmol/L 03/06/19 Range/Units 07:07 Hgb 13.3 L (13.5-17.5) g/dL RDW 15.3 H (11.8-14.1) % Absolute Basophils 0.23 H (0.0-0.2) k/cumm Chloride (98-107) mmol/L Carbon Dioxide (21.0-32.0) mmol/L Anion Gap (3-11) mmol/L Vital Signs Temperature 36.6 C 03/06/19 13:10 Temperature Source Tympanic 03/06/19 13:10 Pulse 61 03/06/19 13:10 Pulse Rhythm Regular 03/05/19 20:35 Pulse 65 03/05/19 02:02 Respiratory Rate 17 03/06/19 13:10 Respiratory Effort Non-Labored 03/05/19 20:35 Respiratory Depth Normal 03/05/19 20:35 Respiratory Pattern Normal 03/05/19 20:35 Blood Pressure 145/87 H 03/06/19 13:10 Blood Pressure Mean 81 03/05/19 02:02 Blood Pressure Position Supine 03/04/19 22:20 Pulse Oximetry 95 03/06/19 13:10 Oxygen Delivery Method Room Air 03/06/19 13:10 Oxygen Flow Rate 0 03/06/19 13:10 Pain Level 7 03/06/19 09:39 Comment 03/06/19 11:20 Intake & Output 03/05/19 03/06/19 03/06/19 23:59 11:59 23:59 Intake Total 1761.250 / 4227.750 937.500 / 937.500 Output Total 250 / 725 450 / 450 Balance 1511.250 / 3502.750 487.500 / 487.500 Weight 184.1 kg Intake: IV 1761.250 / 3827.750 937.500 / 937.500 Output: Urine 250 / 725 450 / 450 Other: Urine Color Yellow Dark Hailee Urine Appearance Clear Clear Comment said she emptied. not seen by nursing. Voiding Methods Urinal Urinal Laboratory Results WBC 8.20 k/cumm (4.4-10.8) 03/06/19 07:07 RBC 4.68 m/cumm (4.50-6.00) 03/06/19 07:07 Hgb 13.3 g/dL (13.5-17.5) L 03/06/19 07:07 Hct 40.6 % (40.0-50.0) 03/06/19 07:07 MCV 86.8 fL (80-95) 03/06/19 07:07 MCH 28.4 pg (27.0-33.0) 03/06/19 07:07 MCHC 32.8 g/dL (32.0-36.0) 03/06/19 07:07 RDW 15.3 % (11.8-14.1) H 03/06/19 07:07 Plt Count 278 x1000/uL (130-400) 03/06/19 07:07 MPV 10.7 fL (8.0-11.0) 03/06/19 07:07 Immature Gran % 1.0 03/06/19 07:07 Neutrophils % 63.5 03/06/19 07:07 Lymphocytes % 16.7 03/06/19 07:07 Monocytes % 7.7 03/06/19 07:07 Eosinophils % 8.3 03/06/19 07:07 Basophils % 2.8 03/06/19 07:07 Absolute Neutrophils 5.21 k/cumm (1.2-6.7) 03/06/19 07:07 Absolute Lymphocytes 1.37 k/cumm (1.2-3.4) 03/06/19 07:07 Absolute Monocytes 0.63 k/cumm (0.11-0.7) 03/06/19 07:07 Absolute Eosinophils 0.68 k/cumm (0.0-0.7) 03/06/19 07:07 Absolute Basophils 0.23 k/cumm (0.0-0.2) H 03/06/19 07:07 PT 10.8 sec (9.3-11.0) 03/04/19 22:50 INR 1.1 (0.9-1.1) 03/04/19 22:50 APTT 24.5 sec (21.0-31.4) 03/04/19 22:50 VBG pH 7.42 (7.32-7.43) 03/04/19 22:50 VBG pCO2 35 mm/Hg (34-47) 03/04/19 22:50 VBG pO2 87 mm/Hg (28-44) H 03/04/19 22:50 VBG HCO3 23 mmol/L (22-28) 03/04/19 22:50 VBG Total CO2 20 mmol/L (22-29) L 03/04/19 22:50 VBG O2 Saturation 98 % (70-80) H 03/04/19 22:50 VBG Base Excess -1.8 mmol/L (-3-3) 03/04/19 22:50 Sodium 140 mmol/L (136-145) 03/06/19 07:07 Potassium 4.1 mmol/L (3.5-5.1) 03/06/19 07:07 Chloride 108 mmol/L (98-107) H 03/06/19 07:07 Carbon Dioxide 17.6 mmol/L (21.0-32.0) L 03/06/19 07:07 Anion Gap 14.4 mmol/L (3-11) H 03/06/19 07:07 BUN 10 mg/dL (7-18) 03/06/19 07:07 Creatinine 0.76 mg/dL (0.70-1.30) 03/06/19 07:07 Estimated GFR/1.73 m2 >= 60.00 (mL/min/1.73m2) 03/06/19 07:07 Glucose 80 mg/dL (70-100) 03/06/19 07:07 Hemoglobin A1c Cancelled 03/06/19 07:07 Calcium 8.6 mg/dL (8.5-10.1) 03/06/19 07:07 Magnesium 2.0 mg/dL (1.8-2.4) 03/06/19 07:07 Total Bilirubin 0.7 mg/dL (0.2-1.0) 03/05/19 06:45 AST 47 U/L (15-37) H 03/05/19 06:45 ALT 132 U/L (12-78) H 03/05/19 06:45 Alkaline Phosphatase 63 U/L (46-116) 03/05/19 06:45 Troponin I < 0.02 ng/mL (0.00-0.06) 03/04/19 22:50 Total Protein 6.6 g/dL (6.4-8.2) 03/05/19 06:45 Albumin 3.1 g/dL (3.4-5.0) L 03/05/19 06:45 Lipase 108 U/L (73-393) 03/04/19 22:50 Urine Color Yellow (Yellow) 03/04/19 23:45 Urine Clarity Clear 03/04/19 23:45 Urine pH 5.5 (5-8) 03/04/19 23:45 Ur Specific [place] 1.025 (1.005-1.025) 03/04/19 23:45 Urine Protein Negative mg/dL (Negative) 03/04/19 23:45 Urine Ketones Trace mg/dL (Negative) H 03/04/19 23:45 Urine Blood Negative (Negative) 03/04/19 23:45 Urine Nitrite Negative (Negative) 03/04/19 23:45 Urine Bilirubin Negative (Negative) 03/04/19 23:45 Urine Urobilinogen 0.2 EU/dL (Up TO 0.2) 03/04/19 23:45 Ur Leukocyte Esterase Negative (Negative) 03/04/19 23:45 Urine Glucose Negative mg/dL (Negative) 03/04/19 23:45 Urine Opiates Screen Negative (Negative) 03/04/19 23:45 Urine Methadone Screen Negative (Negative) 03/04/19 23:45 Ur Barbiturates Screen Negative (Negative) 03/04/19 23:45 Ur Tricyclics Screen Negative (Negative) 03/04/19 23:45 Ur Amphetamines Screen Negative (Negative) 03/04/19 23:45 U Benzodiazepines Scrn Negative (Negative) 03/04/19 23:45 Urine Cocaine Screen Negative (Negative) 03/04/19 23:45 Ur THC Screen Negative (Negative) 03/04/19 23:45 Lyme Disease Antibody Negative 03/05/19 02:25 Patient ABO/Rh O Positive 03/04/19 23:00 Antibody Screen Negative 03/04/19 23:00
--- NOTE | 2019-03-06 16:51 | PDOC.CMPRO ---
Care Management Progress Note S/O: Miguelito was sitting up in bed, he reported not tolerating his diet well and did not anticipated discharging from [facility] today. He shared no additional concerns at this time; CM will continue to follow. A: 38 year old male admitted to [facility] 03/05/19 for Abdominal Pain, Intractable emesis, DM NID and Diarrhea P: Miguelito will continue to be closely monitored and treated. No additional services anticipated at this time. CM will continue to follow and support discharge planning considerations.
--- NOTE | 2019-03-06 16:59 | CMPROGNOTE_ITS ---
Care Management Progress Note S/O: Miguelito was sitting up in bed, he reported not tolerating his diet well and did not anticipated discharging from [facility] today. He shared no additional concerns at this time; CM will continue to follow. A: 38 year old male admitted to [facility] 03/05/19 for Abdominal Pain, Intractable emesis, DM NID and Diarrhea P: Miguelito will continue to be closely monitored and treated. No additional services anticipated at this time. CM will continue to follow and support discharge planning considerations.
[2019-03-06] MEDS: Sucralfate 1 GM TAB PO ×2 (17:11→22:45)
[2019-03-06] MEDS: Lidocaine 5% Patch 2 PATCH TP (18:34)
[2019-03-07 00:49] LABS: Anaplasma phagocytophilum Negative (Negative); B. miyamotoi PCR Negative (Negative); Babesia divergens/MO-1 Negative (Negative); Babesia duncani Negative (Negative); Babesia microti Negative (Negative); Ehrlichia chaffeensis Negative (Negative); Ehrlichia ewingii/canis Negative (Negative); Ehrlichia muris eauclairensis Negative (Negative)
[2019-03-07] MEDS: POTASSIUM CHLORIDE/0.9% NACL 1,000 ML 125 MEQ IV ×2 (01:50→09:45)
[2019-03-07] MEDS: FAMOTIDINE 20 MG/50 ML BAG 200 MG IVPB (03:37)
[2019-03-07 03:45] VITALS: BP 146/88; PULSE 68; RESP 18; TEMP 36.5; O2SAT 98
[2019-03-07] MEDS: Acetaminophen 500 MG TAB 1000 MG PO ×2 (06:22→11:42)
[2019-03-07 07:45] LABS: HCT 41.1 % (40.0-50.0); HGB 13.4 g/dL (13.5-17.5); Mean Corp. HGB Concentration 32.6 g/dL (32.0-36.0); Mean Corpuscular Hemoglobin 28.2 pg (27.0-33.0); Mean Corpuscular Volume 86.3 fL (80-95); Mean Platelet Volume 10.1 fL (8.0-11.0); Platelet Count 301 x1000/uL (130-400); RBC 4.76 m/cumm (4.50-6.00); RBC Distribution Width 14.9 % (11.8-14.1)
[2019-03-07 07:50] VITALS: BP 154/88; PULSE 61; RESP 18; TEMP 36.4; O2SAT 96
[2019-03-07] MEDS: Sucralfate 1 GM TAB PO ×2 (08:07→11:42)
[2019-03-07 08:25] LABS: Anion Gap 9.4 mmol/L (3-11); BUN 9 mg/dL (7-18); CO2 24.6 mmol/L (21.0-32.0); CREATININE 0.94 mg/dL (0.70-1.30); Calcium 8.8 mg/dL (8.5-10.1); Chloride 108 mmol/L (98-107); Glucose 97 mg/dL (70-100); Potassium 3.8 mmol/L (3.5-5.1); Sodium 142 mmol/L (136-145)
--- NOTE | 2019-03-07 09:39 | W.PM.ENDDOP ---
Date of service: 03/06/19 Time of Service: 10:30
[2019-03-07] MEDS: Labetalol 100 MG TAB 300 MG PO (09:44)
[2019-03-07] MEDS: Pantoprazole 40 MG VIAL IVP (09:44)
[2019-03-07] MEDS: Normal Saline Flush 10 ML SYR IVP ×2 (09:45→11:41)
--- NOTE | 2019-03-07 11:58 | W.PM.DS.N ---
Date of service: 03/07/19 Time of Service: 11:59 DS: Diagnosis Discharge Diagnosis (1) Abdominal pain: Status: Acute (2) Back pain: Status: Acute (3) Gastritis: Status: Acute (4) Anemia: Status: Chronic (5) Diabetes type 2, controlled: Status: Acute (6) Diarrhea: Status: Acute (7) Intractable vomiting: Status: Acute Discharge Plan Disposition Patient Disposition: HOME Condition: Stable Discharge Details Reason For Visit: ABDOMINAL PAIN,INTRACTIBLE EMESIS AND DIARRHEA,NID Admit Date/Time: 03/05/19 01:36 Admit Provider: Philip Maciel Attending Provider: Philip Maciel Primary Care Provider: Jason Ruth Hospital Course Hospital Course: Miguelito Villatoro is a very pleasant 38 year old male with a past medical history significant for hypertension and type 2 diabetes who presented to the emergency department on 03/04/2019 with reports of hematemesis, bloody diarrhea, abdominal pain, chest pain, neck and back pain. He was seen in the day prior on 03/03/2019 for lightheadedness. He was brought in by emergency medical services. In the emergency department, he had a CT head, chest, abdomen and pelvis which were all negative for any acute process. His EKG in the emergency department showed Rate 65, intervals normal, sinus rhythm, no significant ST elevation or depression. Inverted T wave in lead III, EKG unchanged from previous. His labs showed mildly low potassium at 3.4, slight anion gap of 12.2, his BUN and creatinine were within normal limits, his hemoglobin and hematocrit were 13.7 and 41.4. Urinalysis and urine drug screen were both negative. He was admitted to the [facility] floor for further evaluation and monitoring. He received IV fluids, he was kept n.p.o. for surgical evaluation. He had no further hematemesis or hematochezia however, he continued to have abdominal pain. He went on to have an EGD by Dr. Snyder, who found gastritis. Biopsies were taken and are pending. He was able to resume a regular diet without nausea or vomiting. His abdominal pain improved. He has been on PPI therapy while in the hospital, he will be discharged home on PPI therapy. During his hospitalization, he also experienced dizziness upon standing. He had orthostatic vital signs taken which showed no orthostatic changes. He has been followed by endocrinology at [facility] for type 2 diabetes. He has been working on blood sugar control. His previous hemoglobin A1c from August 2018 was 10.4, a repeat during this hospitalization found that his A1c is down to 5.5 in 6 months. There is concerned that the sensation of dizziness could be that his body is not used to low blood sugars. He was noted to have fasting glucose readings in the 70s and 80s while hospitalized. We will plan to discharge him home on a less intense diabetic regimen and have him closely follow his blood glucose. We will schedule for him to follow-up with his furniture painter at [facility] for consideration of continuous glucose monitoring. We will also set up for him to follow-up as an outpatient with the staff development educator here at the [facility]. At the time of his discharge, he is no longer experiencing dizziness. He was not on Lantus while he was here at the hospital, this will be held until he follows up with endocrinology. He will resume his previous dose of metformin. He will maintain a low carb diet. He is in agreement with this plan. Mr. Villatoro also reported back pain along his cervical and thoracic spine including his paraspinal muscles bilaterally. This is likely musculoskeletal as it is reproducible on palpation and the radiologist reviewed his CT scan and found no acute abnormalities along his thoracic or cervical spine. He has been using Lidoderm patches while here in the hospital with relief as well as acetaminophen. NSAIDs have been avoided due to his presentation with hematemesis and hematochezia. He will be discharged home to continue using Lidoderm patches and acetaminophen for back pain. He will follow-up with his primary care provider. Consideration was made to use muscle relaxers, however, in the setting of dizziness there was concern that this would exacerbate his symptoms. His primary care provider can consider an MRI back if the pain persists. 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 He is discharged home on PPI therapy and with a less intense diabetic regimen. He will follow-up with his primary care provider as scheduled on 03/12/2019. He will follow-up with Dr. Martinez, endocrinology at [facility] as scheduled. He will follow-up with the staff development educator here at the hospital as an outpatient. He will closely monitor his blood sugars at home. Home Meds and New Rx's Prescriptions: New sucralfate 1 gram Tablet 1 g PO AC & HS Qty: 120 RF: 0 acetaminophen [Mapap Extra Strength] 500 mg Tablet 1,000 mg PO Q6H PRN PRNQty: 0 RF: 0 lidocaine [Lidoderm] 5 % Adhesive Patch,Medicated 2 patch topical DAILY@1800 Qty: 14 RF: 0 omeprazole 40 mg capsule,delayed release(DR/EC) 40 mg PO BID Qty: 60 RF: 0 Continued metformin 500 mg Tablet 500 mg PO .QHS RF: 0 spironolactone 25 mg Tablet 25 mg PO DAILY RF: 0 labetalol 300 mg Tablet 300 mg BID RF: 0 Changed metformin 1,000 mg Tablet 1,000 mg PO DAILY Qty: 0 RF: 0 Discontinued Novolog Flexpen U-100 Insulin 100 unit/mL Insulin Pen 10 unit TID RF: 0 insulin glargine 100 unit/mL (3 mL) Insulin Pen 10 unit SUBCUT DAILY RF: 0 Discharge Instructions Instructions: Gastritis (DC), Diet for Stomach Ulcers and Gastritis (GEN), Basic Carbohydrate Counting (DC) Additional Instructions: Monitor your blood sugars closely. Do not take insulin until you are directed to do so. You have not required short acting insulin while in the hospital. Maintain a low carb diet. Your EGD showed gastritis. Avoid foods that will aggravate your stomach (you will receive information on this). Take carafate prior to meals and at bedtime. Take omperazole twice daily. Follow up with your PCP as scheduled. Follow up with Endocrinology as scheduled. Continue to discuss continuous glucose monitoring. Follow up with certified adapted physical educator, Marcella Franklin. Take care! Stand Alone Forms: Nursing Discharge Form Referrals: Jason Ruth NP [Primary Care Provider] - 03/12/19 3:45 pm Activity:: Activity as Tolerated Equipment/Supplies:: No Equipment Needed Diet:: Carb Counting Discharge Orders Discharge Orders: Discharge Order (Routine); Ordered 03/07/19 Ordered By: Jennifer Canada Other Ambulatory Orders: Complete Blood Count No Diff (Routine) Timeframe: 20190311 Location: Determined by Patient Ordered By: Jennifer Canada Comprehensive Metabolic Panel (Routine) Timeframe: 20190311 Location: Determined by Patient Ordered By: Jennifer Canada Exam Narrative Exam Narrative: General: overweight man, appears older than stated age, laying nearly flat in bed, in NAD. He is alert and oriented, pleasant and cooperative, answers questions appropriately. HEENT: Normocephalic, atraumatic, pupils are equal and round, EOMs intact, no nystagmus, mucous membranes moist. Neck: Supple, no JVD. Cardiovascular: Heart has regular rate and rhythm, no murmur appreciated. Respiratory: Respirations even and unlabored, lung sounds clear to auscultation throughout. GI: Large abdomen, nondistended, hypoactive bowel sounds, minimal tenderness on palpation. Extremities: Moves all extremities freely. Bilateral lower extremities without clubbing, cyanosis or pitting edema. DS: Data Vitals/I&O Vitals and I&O: Vital Signs Temperature 36.4 C L 03/07/19 07:50 Temperature Source Tympanic 03/07/19 07:50 Pulse 61 03/07/19 07:50 Pulse Rhythm Regular 03/06/19 20:03 Pulse 65 03/05/19 02:02 Respiratory Rate 18 03/07/19 07:50 Respiratory Effort Non-Labored 03/06/19 20:03 Respiratory Depth Normal 03/06/19 20:03 Respiratory Pattern Normal 03/06/19 20:03 Blood Pressure 154/88 H 03/07/19 07:50 Blood Pressure Mean 81 03/05/19 02:02 Blood Pressure Position Supine 03/04/19 22:20 Pulse Oximetry 96 03/07/19 07:50 Oxygen Delivery Method Room Air 03/07/19 07:50 Oxygen Flow Rate 0 03/07/19 07:50 Pain Level 0 03/06/19 21:21 Comment 03/06/19 23:38 Intake & Output 03/06/19 03/06/19 03/07/19 11:59 23:59 11:59 Intake Total 937.500 / 3640.176 3372 / 7607.812 9170.084 / 2502.084 Output Total 450 / 1550 1100 / 1550 Balance 487.500 / 437.500 -50 / 469.914 8473.084 / 2502.084 Weight 184.1 kg Intake: IV 937.500 / 3276.437 5559 / 1126.102 3155.084 / 2021.084 Oral 480 / 480 Output: Urine 450 / 1550 1100 / 1550 Other: Urine Color Dark Hailee Yellow Urine Appearance Clear Clear Urine Odor Normal Stool Occult Blood Negative Stool Size Large Stool Characteristics Formed Brown Voiding Methods Urinal Urinal Completed studies during hospitalization [Text1]: 03/04/19: NONCONTRAST HEAD CT: The study was carried out according to the usual protocol without contrast enhancement. There is no evidence of an intra/extra-axial hemorrhage. There is nothing to suggest an infarct. The ventricles are normal. There is no skull fracture. The paranasal sinuses are normal. There is no evidence of a mastoid effusion. The soft tissues are normal. SUMMARY: No acute abnormality is demonstrated. CTA CHEST, ABDOMEN AND PELVIS: CT angiography was performed with multi slice acquisition and multi planar and 3D reconstruction. The examination was carried out according to the usual protocol with an intravenous administration of 100 cc's of Omnipaque 350. CHEST: There is no evidence of PE. The aorta is normal. The lungs are normal. There is no evidence of a pneumothorax or pleural effusion. The heart is not enlarged. There is no evidence of lymphadenopathy or a mass. The bony structures are unremarkable. The soft tissues are unremarkable. IMPRESSION: No evidence of an aneurysm or dissection involving the thoracic aorta. No evidence of PE. ABDOMEN AND PELVIS: There is no evidence of an aneurysm or dissection. The celiac and mesenteric arteries appear intact. The renal arteries are intact. The right iliac artery and left iliac artery are intact. The liver is unremarkable. The gallbladder is intact. There are no stones or ductal dilatation. The pancreas is unremarkable. The spleen and adrenals and kidneys are unremarkable. There is no evidence of bowel obstruction or mucosal thickening. The patient is status post appendectomy. The bladder is intact. The reproductive organs as visualized are intact. There is no evidence of free air or free fluid in the intraperitoneal space. No acute bony abnormality is seen. There is no demonstrated soft tissue abnormality or evidence of lymphadenopathy. SUMMARY: No evidence of an aneurysm or dissection involving the abdominal aorta. Labs on day of discharge: Labs from last 24 hours 03/07/19 03/07/19 03/06/19 07:20 07:20 07:07 WBC 7.80 RBC 4.76 Hgb 13.4 L Hct 41.1 MCV 86.3 MCH 28.2 MCHC 32.6 RDW 14.9 H Plt Count 301 MPV 10.1 Sodium 142 Potassium 3.8 Chloride 108 H Carbon Dioxide 24.6 Anion Gap 9.4 BUN 9 Creatinine 0.94 Estimated GFR/1.73 m2 >= 60.00 Glucose 97 Hemoglobin A1c Cancelled Calcium 8.8 A.phagocytophil DNA PCR B. divergens/MO-1 PCR Babesia duncani (PCR) Babesia microti DNA PCR Borrelia (PCR) E.chaffeensis DNA (PCR) E.ewingii/canis DNA PCR E. muris-like DNA (PCR) 03/05/19 03/05/19 21:53 02:25 WBC RBC Hgb Hct MCV MCH MCHC RDW Plt Count MPV Sodium Potassium Chloride Carbon Dioxide Anion Gap BUN Creatinine Estimated GFR/1.73 m2 Glucose Hemoglobin A1c 5.5 Calcium A.phagocytophil DNA PCR Negative B. divergens/MO-1 PCR Negative Babesia duncani (PCR) Negative Babesia microti DNA PCR Negative Borrelia (PCR) Negative E.chaffeensis DNA (PCR) Negative E.ewingii/canis DNA PCR Negative E. muris-like DNA (PCR) Negative [facility] Medical History Gastritis (Acute) Anemia (Chronic) Abdominal pain (Acute) Diabetes type 2, controlled (Acute) Diabetes mellitus (Chronic) Essential hypertension (Chronic) Surgical History History of appendectomy (Resolved) Family History Father Diabetes Social History Smoking/Tobacco Use Status: Former Tobacco Use Alcohol Intake: never Drug use: Never Substance use type: does not use current occupation: [employer] Do you feel safe at home: Yes Do you feel safe in your relationship?: Yes
[2019-03-07 12:10] VITALS: BP 150/81; PULSE 62; RESP 16; TEMP 36.6; O2SAT 98
--- NOTE | 2019-03-07 12:16 | DSE_ITS ---
Date of service: 03/07/19 Time of Service: 11:59 DS: Diagnosis Discharge Diagnosis (1) Abdominal pain: Status: Acute (2) Back pain: Status: Acute (3) Gastritis: Status: Acute (4) Anemia: Status: Chronic (5) Diabetes type 2, controlled: Status: Acute (6) Diarrhea: Status: Acute (7) Intractable vomiting: Status: Acute Discharge Plan Disposition Patient Disposition: HOME Condition: Stable Discharge Details Reason For Visit: ABDOMINAL PAIN,INTRACTIBLE EMESIS AND DIARRHEA,NID Admit Date/Time: 03/05/19 01:36 Admit Provider: Philip Maciel Attending Provider: Philip Maciel Primary Care Provider: Jason Ruth Hospital Course Hospital Course: Miguelito Villatoro is a very pleasant 38 year old male with a past medical history significant for hypertension and type 2 diabetes who presented to the emergency department on 03/04/2019 with reports of hematemesis, bloody diarrhea, abdominal pain, chest pain, neck and back pain. He was seen in the day prior on 03/03/2019 for lightheadedness. He was brought in by emergency medical services. In the emergency department, he had a CT head, chest, abdomen and pelvis which were all negative for any acute process. His EKG in the emergency department showed Rate 65, intervals normal, sinus rhythm, no significant ST elevation or depression. Inverted T wave in lead III, EKG unchanged from previous. His labs showed mildly low potassium at 3.4, slight anion gap of 12.2, his BUN and creatinine were within normal limits, his hemoglobin and hematocrit were 13.7 and 41.4. Urinalysis and urine drug screen were both negative. He was admitted to the [facility] floor for further evaluation and monitoring. He received IV fluids, he was kept n.p.o. for surgical evaluation. He had no further hematemesis or hematochezia however, he continued to have abdominal pain. He went on to have an EGD by Dr. Snyder, who found gastritis. Biopsies were taken and are pending. He was able to resume a regular diet without nausea or vomiting. His abdominal pain improved. He has been on PPI therapy while in the hospital, he will be discharged home on PPI therapy. During his hospitalization, he also experienced dizziness upon standing. He had orthostatic vital signs taken which showed no orthostatic changes. He has been followed by endocrinology at [facility] for type 2 diabetes. He has been working on blood sugar control. His previous hemoglobin A1c from August 2018 was 10.4, a repeat during this hospitalization found that his A1c is down to 5.5 in 6 months. There is concerned that the sensation of dizziness could be that his body is not used to low blood sugars. He was noted to have fasting glucose readings in the 70s and 80s while hospitalized. We will plan to discharge him home on a less intense diabetic regimen and have him closely follow his blood glucose. We will schedule for him to follow-up with his clinical counselor at [facility] for consideration of continuous glucose monitoring. We will also set up for him to follow-up as an outpatient with the family living educator here at the [facility]. At the time of his discharge, he is no longer experiencing dizziness. He was not on Lantus while he was here at the hospital, this will be held until he follows up with endocrinology. He will resume his previous dose of metformin. He will maintain a low carb diet. He is in agreement with this plan. Mr. Villatoro also reported back pain along his cervical and thoracic spine including his paraspinal muscles bilaterally. This is likely musculoskeletal as it is reproducible on palpation and the radiologist reviewed his CT scan and found no acute abnormalities along his thoracic or cervical spine. He has been using Lidoderm patches while here in the hospital with relief as well as acetaminophen. NSAIDs have been avoided due to his presentation with hematemesis and hematochezia. He will be discharged home to continue using Lidoderm patches and acetaminophen for back pain. He will follow-up with his primary care provider. Consideration was made to use muscle relaxers, however, in the setting of dizziness there was concern that this would exacerbate his symptoms. His primary care provider can consider an MRI back if the pain persis ts. 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 He is discharged home on PPI therapy and with a less intense diabetic regimen. He will follow-up with his primary care provider as scheduled on 03/12/2019. He will follow-up with Dr. Martinez, endocrinology at [facility] as scheduled. He will follow-up with the family living educator here at the hospital as an outpatient. He will closely monitor his blood sugars at home. Home Meds and New Rx's Prescriptions: New sucralfate 1 gram Tablet 1 g PO AC & HS Qty: 120 RF: 0 acetaminophen [Mapap Extra Strength] 500 mg Tablet 1,000 mg PO Q6H PRN PRNQty: 0 RF: 0 lidocaine [Lidoderm] 5 % Adhesive Patch,Medicated 2 patch topical DAILY@1800 Qty: 14 RF: 0 omeprazole 40 mg capsule,delayed release(DR/EC) 40 mg PO BID Qty: 60 RF: 0 Continued metformin 500 mg Tablet 500 mg PO .QHS RF: 0 spironolactone 25 mg Tablet 25 mg PO DAILY RF: 0 labetalol 300 mg Tablet 300 mg BID RF: 0 Changed metformin 1,000 mg Tablet 1,000 mg PO DAILY Qty: 0 RF: 0 Discontinued Novolog Flexpen U-100 Insulin 100 unit/mL Insulin Pen 10 unit TID RF: 0 insulin glargine 100 unit/mL (3 mL) Insulin Pen 10 unit SUBCUT DAILY RF: 0 Discharge Instructions Instructions: Gastritis (DC), Diet for Stomach Ulcers and Gastritis (GEN), Basic Carbohydrate Counting (DC) Additional Instructions: Monitor your blood sugars closely. Do not take insulin until you are directed to do so. You have not required short acting insulin while in the hospital. Maintain a low carb diet. Your EGD showed gastritis. Avoid foods that will aggravate your stomach (you will receive information on this). Take carafate prior to meals and at bedtime. Take omperazole twice daily. Follow up with your PCP as scheduled. Follow up with Endocrinology as scheduled. Continue to discuss continuous glucose monitoring. Follow up with family living educator, Marcella Franklin. Take care! Stand Alone Forms: Nursing Discharge Form Referrals: Jason Ruth NP [Primary Care Provider] - 03/12/19 3:45 pm Activity:: Activity as Tolerated Equipment/Supplies:: No Equipment Needed Diet:: Carb Counting Discharge Orders Discharge Orders: Discharge Order (Routine); Ordered 03/07/19 Ordered By: Jennifer Canada Other Ambulatory Orders: Complete Blood Count No Diff (Routine) Timeframe: 20190311 Location: Determined by Patient Ordered By: Jennifer Canada Comprehensive Metabolic Panel (Routine) Timeframe: 20190311 Location: Determined by Patient Ordered By: Jennifer Canada Exam Narrative Exam Narrative: General: overweight man, appears older than stated age, laying nearly flat in bed, in NAD. He is alert and oriented, pleasant and cooperative, answers questions appropriately. HEENT: Normocephalic, atraumatic, pupils are equal and round, EOMs intact, no nystagmus, mucous membranes moist. Neck: Supple, no JVD. Cardiovascular: Heart has regular rate and rhythm, no murmur appreciated. Respiratory: Respirations even and unlabored, lung sounds clear to auscultation throughout. GI: Large abdomen, nondistended, hypoactive bowel sounds, minimal tenderness on palpation. Extremities: Moves all extremities freely. Bilateral lower extremities without clubbing, cyanosis or pitting edema. DS: Data Vitals/I&O Vitals and I&O: Vital Signs Temperature 36.4 C L 03/07/19 07:50 Temperature Source Tympanic 03/07/19 07:50 Pulse 61 03/07/19 07:50 Pulse Rhythm Regular 03/06/19 20:03 Pulse 65 03/05/19 02:02 Respiratory Rate 18 03/07/19 07:50 Respiratory Effort Non-Labored 03/06/19 20:03 Respiratory Depth Normal 03/06/19 20:03 Respiratory Pattern Normal 03/06/19 20:03 Blood Pressure 154/88 H 03/07/19 07:50 Blood Pressure Mean 81 03/05/19 02:02 Blood Pressure Position Supine 03/04/19 22:20 Pulse Oximetry 96 03/07/19 07:50 Oxygen Delivery Method Room Air 03/07/19 07:50 Oxygen Flow Rate 0 03/07/19 07:50 Pain Level 0 03/06/19 21:21 Comment 03/06/19 23:38 Intake & Output 03/06/19 03/06/19 03/07/19 11:59 23:59 11:59 Intake Total 937.500 / 2656.996 2580 / 5558.240 5492.084 / 2502.084 Output Total 450 / 1550 1100 / 1550 Balance 487.500 / 437.500 -50 / 423.282 7558.084 / 2502.084 Weight 184.1 kg Intake: IV 937.500 / 1887.631 5820 / 6625.833 8309.084 / 084 Oral 480 / 480 Output: Urine 450 / 1550 1100 / 1550 Other: Urine Color Dark Hailee Yellow Urine Appearance Clear Clear Urine Odor Normal Stool Occult Blood Negative Stool Size Large Stool Characteristics Formed Brown Voiding Methods Urinal Urinal Completed studies during hospitalization [Text1]: 03/04/19: NONCONTRAST HEAD CT: The study was carried out according to the usual protocol without contrast enhancement. There is no evidence of an intra/extra-axial hemorrhage. There is nothing to suggest an infarct. The ventricles are normal. There is no skull fracture. The paranasal sinuses are normal. There is no evidence of a mastoid effusion. The soft tissues are normal. SUMMARY: No acute abnormality is demonstrated. CTA CHEST, ABDOMEN AND PELVIS: CT angiography was performed with multi slice acquisition and multi planar and 3D reconstruction. The examination was carried out according to the usual protocol with an intravenous administration of 100 cc's of Omnipaque 350. CHEST: There is no evidence of PE. The aorta is normal. The lungs are normal . There is no evidence of a pneumothorax or pleural effusion. The heart is not enlarged. There is no evidence of lymphadenopathy or a mass. The bony structures are unremarkable. The soft tissues are unremarkable. IMPRESSION: No evidence of an aneurysm or dissection involving the thoracic aorta. No evidence of PE. ABDOMEN AND PELVIS: There is no evidence of an aneurysm or dissection. The celiac and mesenteric arteries appear intact. The renal arteries are intact. The right iliac artery and left iliac artery are intact. The liver is unremarkable. The gallbladder is intact. There are no stones or ductal dilatation. The pancreas is unremarkable. The spleen and adrenals and kidneys are unremarkable. There is no evidence of bowel obstruction or mucosal thickening. The patient is status post appendectomy. The bladder is intact. The reproductive organs as visualized are intact. There is no evidence of free air or free fluid in the intraperitoneal space. No acute bony abnormality is seen. There is no demonstrated soft tissue abnormality or evidence of lymphadenopathy. SUMMARY: No evidence of an aneurysm or dissection involving the abdominal aorta. Labs on day of discharge: Labs from last 24 hours 03/07/19 03/07/19 03/06/19 07:20 07:20 07:07 WBC 7.80 RBC 4.76 Hgb 13.4 L Hct 41.1 MCV 86.3 MCH 28.2 MCHC 32.6 RDW 14.9 H Plt Count 301 MPV 10.1 Sodium 142 Potassium 3.8 Chloride 108 H Carbon Dioxide 24.6 Anion Gap 9.4 BUN 9 Creatinine 0.94 Estimated GFR/1.73 m2 >= 60.00 Glucose 97 Hemoglobin A1c Cancelled Calcium 8.8 A.phagocytophil DNA PCR B. divergens/MO-1 PCR Babesia duncani (PCR) Babesia microti DNA PCR Borrelia (PCR) E.chaffeensis DNA (PCR) E.ewingii/canis DNA PCR E. muris-like DNA (PCR) 03/05/19 03/05/19 21:53 02:25 WBC RBC Hgb Hct MCV MCH MCHC RDW Plt Count MPV Sodium Potassium Chloride Carbon Dioxide Anion Gap BUN Creatinine Estimated GFR/1.73 m2 Glucose Hemoglobin A1c 5.5 Calcium A.phagocytophil DNA PCR Negative B. divergens/MO-1 PCR Negative Babesia duncani (PCR) Negative Babesia microti DNA PCR Negative Borrelia (PCR) Negative E.chaffeensis DNA (PCR) Negative E.ewingii/canis DNA PCR Negative E. 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
--- NOTE | 2019-03-07 12:24 | PDOC.CMDIS ---
LACE Index Scoring Tool - Questions: Length of Stay (in days): 2 Acuity (Admit via E.D.?): Yes Comorbidities: Diabetes w/o Complication E.D. Visits: 4 - Answers: Total Score: 10 Risk of Readmission: High Risk Care Management Discharge Reason for Hospitalization: Abdominal Pain, Intractible emesis and diarrhea, NID Discharge Plan: Miguelito will return home when ready per MD. He will follow up with [facility] Endocrinology; CM spoke with Georgina at Endocrinology appointment; moved appointment from 05/02/19, 04/08/19. CM provided AD document for review and provided patient education around completion requirements. CM also updated demographics to indicate salesperson meats as Carmen at Miguelito's request. CM faxed discharge paperwork to [facility] Endocrinology at F#[phone]. Miguelito will ride home via private vehicle with his . Patient/Family Education Needs: AD completion, discharge instructions, discuss Ask Me Three.
--- NOTE | 2019-03-07 13:15 | W.INDIABCONS ---
Date of service: 03/07/19 Time of Service: 13:16 Diabetes Inpatient Consult DESCRIPTION/ASSESSMENT: Appreciate diabetes consult for Mr. Villatoro who is hospitalized with stomach issues. During this hospitalization blood sugars 77-131mg/dl prescribed sensitive insulin correction which he did not meet the criteria to have administered. His carbohydrate has not been documented unless he has not been consuming carbohydrate. At home he is prescribed 40u Lantus down from 70units and 8 units mealtime insulin down from 18units. He reports A1c less than 5 on this regimen. He states he generally eats about the same amount of carbohydrate at each meal. Met with Miguelito who states he does not get below 70mg/dl. He does state he could get hypoglycemic between testings but he has not been symptomatic. He is aware he needs to follow up with his printing services coordinator soon. They have been discussing continuous glucose monitor Freestyle Jelena but insurance did not cover it adequately because he was not identified as type 1. INTERVENTION: Discussed home insulin regimen and whether he could decrease especially his basal insulin dose. Suggested trying 36 units to see if blood sugars were adversely affected, if he is comfortable with that. Discussed Dexcom 6 continuous glucose monitor if hypoglycemia unawareness is a concern. He is informed of the Dexcom 4 professional he can use for 1 week to see if this is ever evident. PLAN: He will f/u with printing services coordinator. Consider decreasing basal 4 units to 36 units given his near low fasting blood sugars here He is given brochure on Dexcom 6 He knows to call with questions. Time Spent in Nutritional Counseling and Treatment: 25 minutes over 2 days
--- NOTE | 2019-03-07 13:36 | DM INPTCON_ITS ---
Date of service: 03/07/19 Time of Service: 13:16 Diabetes Inpatient Consult DESCRIPTION/ASSESSMENT: Appreciate diabetes consult for Mr. Villatoro who is hospitalized with stomach issues. During this hospitalization blood sugars 77-131mg/dl prescribed sensitive insulin correction which he did not meet the criteria to have administered. His carbohydrate has not been documented unless he has not been consuming carbohydrate. At home he is prescribed 40u Lantus down from 70units and 8 units mealtime insulin down from 18units. He reports A1c less than 5 on this regimen. He states he generally eats about the same amount of carbohydrate at each meal. Met with Miguelito who states he does not get below 70mg/dl. He does state he could get hypoglycemic between testings but he has not been symptomatic. He is aware he needs to follow up with his group fitness manager soon. They have been discussing continuous glucose monitor Freestyle Jelena but insurance did not cover it adequately because he was not identified as type 1. INTERVENTION: Discussed home insulin regimen and whether he could decrease especially his basal insulin dose. Suggested trying 36 units to see if blood sugars were adversely affected, if he is comfortable with that. Discussed Dexcom 6 continuous glucose monitor if hypoglycemia unawareness is a concern. He is informed of the Dexcom 4 professional he can use for 1 week to see if this is ever evident. PLAN: He will f/u with group fitness manager. Consider decreasing basal 4 units to 36 units given his near low fasting blood sugars here He is given brochure on Dexcom 6 He knows to call with questions. Time Spent in Nutritional Counseling and Treatment: 25 minutes over 2 days
--- NOTE | 2019-03-07 15:32 | CMDISCH_ITS ---
LACE Index Scoring Tool - Questions: Length of Stay (in days): 2 Acuity (Admit via E.D.?): Yes Comorbidities: Diabetes w/o Complication E.D. Visits: 4 - Answers: Total Score: 10 Risk of Readmission: High Risk Care Management Discharge Reason for Hospitalization: Abdominal Pain, Intractible emesis and diarrhea, NID Discharge Plan: Miguelito will return home when ready per MD. He will follow up with [facility] Endocrinology; CM spoke with Georgina at Endocrinology appointment; moved appointment from 05/02/19, 04/08/19. CM provided AD document for review and provided patient education around completion requirements. CM also updated demographics to indicate construction person as Carmen at Miguelito's request. CM faxed discharge paperwork to [facility] Endocrinology at F#[phone]. Miguelito will ride home via private vehicle with his . Patient/Family Education Needs: AD completion, discharge instructions, discuss Ask Me Three.
== END 2019-03-07 14:04 | disposition home or self-care (01) | DRG 392 ==
LOC: ER 03-05 01:27 → MS 03-05 02:28
PROVIDERS: Nurse Practitioner; Student in an Organized Health Care Education/Training Program; Surgery; Admitting Provider Family Medicine; Emergency Provider Emergency Medicine; PCP Nurse Practitioner Family; Visit Provider Internal Medicine
PROC: 0DJ68ZZ Inspection of Stomach, Via Natural or Artificial Opening Endoscopic (ICD-10-PCS; CPT 43235; principal; 2019-03-06 10:00)
DX: R10.84 Generalized abdominal pain (principal); K92.2 Gastrointestinal hemorrhage, unspecified; Z68.42 Body mass index [BMI] 45.0-49.9, adult; R11.2 Nausea with vomiting, unspecified; M54.9 Dorsalgia, unspecified; R07.89 Other chest pain; K29.80 Duodenitis without bleeding; K31.89 Other diseases of stomach and duodenum; K29.00 Acute gastritis without bleeding; K21.0 Gastro-esophageal reflux disease with esophagitis; D50.9 Iron deficiency anemia, unspecified; E11.9 Type 2 diabetes mellitus without complications; R19.7 Diarrhea, unspecified; I10 Essential (primary) hypertension; R42 Dizziness and giddiness; Z79.84 Long term (current) use of oral hypoglycemic drugs; E66.01 Morbid (severe) obesity due to excess calories; Z71.3 Dietary counseling and surveillance
CPT/HCPCS: 43239; 36415; 74177; 80048; 80053; 80307; 82805; 83690; 85027; 86850; 86900; 86901; 87505; 88305; 93005; 96361; 96365; 96366; 96375; 99223; 99232; 99239; 99252; 99285; 70450; 81003; 83036; 83735; 84484; 85014; 85018; 85025; 85610; 85730; 86618; 87798; 88361; 93010; J3490

== ENCOUNTER 2019-03-12 17:26 | Outpatient (REF) | payer OTHER, SELFPAY ==
[2019-03-12 19:20] LABS: Abs Immature Grans 0.02 k/cumm (0.0-0.09); Absolute Eosinophil Count 0.26 k/cumm (0.0-0.7); Absolute Lymphocyte Count 0.94 k/cumm (1.2-3.4); Absolute Monocyte Count 0.62 k/cumm (0.11-0.7); Absolute Neutrophil Count 8.02 k/cumm (1.2-6.7); Eosinophils % 2.6; HCT 46.4 % (40.0-50.0); HGB 15.1 g/dL (13.5-17.5); Immature Grans % 0.2; Lymphocytes % 9.4; Mean Corp. HGB Concentration 32.5 g/dL (32.0-36.0); Mean Corpuscular Hemoglobin 27.8 pg (27.0-33.0); Mean Corpuscular Volume 85.5 fL (80-95); Mean Platelet Volume 10.7 fL (8.0-11.0); Monocytes % 6.2; Neutrophils % 80.6; Platelet Count 379 x1000/uL (130-400); RBC 5.43 m/cumm (4.50-6.00); RBC Distribution Width 15.1 % (11.8-14.1); White Blood Cell Count 9.96 k/cumm (4.4-10.8)
[2019-03-12 19:28] LABS: ALT 85 U/L (12-78); AST 28 U/L (15-37); Alkaline Phosphatase 80 U/L (46-116); Anion Gap 12.5 mmol/L (3-11); BUN 15 mg/dL (7-18); Bilirubin, Total 0.6 mg/dL (0.2-1.0); CO2 24.5 mmol/L (21.0-32.0); CREATININE 0.97 mg/dL (0.70-1.30); Calcium 9.6 mg/dL (8.5-10.1); Chloride 104 mmol/L (98-107); Glucose 134 mg/dL (70-100); Potassium 4.1 mmol/L (3.5-5.1); Sodium 141 mmol/L (136-145); Total Protein 7.7 g/dL (6.4-8.2)
== END 2019-03-12 17:46 ==
LOC: NCHCN 17:26
PROVIDERS: PCP Nurse Practitioner Family; Visit Provider Nurse Practitioner Family
DX: R94.5 Abnormal results of liver function studies (principal)
CPT/HCPCS: 80053; 85025

== ENCOUNTER 2019-04-09 19:47 | Emergency (ER) | payer OTHER, SELFPAY ==
[2019-04-09] VITALS (14 sets, daily range): BP systolic 133–160; BP diastolic 65–94; PULSE 49–80; RESP 18; TEMP 37.3; O2SAT 98–100
--- NOTE | 2019-04-09 19:59 | DI.CT_ITS ---
SYMPTOM/DIAGNOSIS: ABD PAIN, BLOODY DIARRHEA ABDOMEN AND PELVIC CT: CT examination of the abdomen and pelvis was performed with a bolus infusion of 125 cc's of Omnipaque 350. Images obtained through the lung bases are unremarkable. Liver, spleen and pancreas appear normal. Gallbladder and bile ducts are CT normal. No significant abdominal wall hernia is seen. No abdominal or pelvic adenopathy is seen. Abdominal aorta is of normal diameter and no major vascular abnormality is seen. Adrenals and kidneys are unremarkable except for the presence of a tiny non obstructing left upper pole renal calculus. No ureteral calcification is seen. Urinary bladder grossly intact with visible urachus extending to the umbilicus. Appendix not specifically visualized but there is no evidence of appendicitis or diverticulitis. No evidence of bowel obstruction. CONCLUSION: No evidence of acute intra-abdominal process. Non obstructing left renal calculus noted.
[2019-04-09] MEDS: Sucralfate 1 GM TAB PO (20:12)
[2019-04-09] MEDS: Pantoprazole 40 MG VIAL IVP (20:12)
--- NOTE | 2019-04-09 20:13 | W.ED.GENAD ---
Discharge Plan Disposition Patient Disposition: HOME Condition: Good Discharge Details Chief Complaint: Abd Prob Clinical Impression: Gastritis, Abdominal pain, Bright red rectal bleeding Primary Care Provider: Jason Ruth ED Provider: Gilberto Foster Home Meds and New Rx's Prescriptions: New ranitidine HCl 300 mg capsule 300 mg PO DAILY Qty: 90 RF: 0 No Action sucralfate 1 gram Tablet 1 g PO AC & HS Qty: 120 RF: 0 acetaminophen [Mapap Extra Strength] 500 mg Tablet 1,000 mg PO Q6H PRN PRNQty: 0 RF: 0 lidocaine [Lidoderm] 5 % Adhesive Patch,Medicated 2 patch topical DAILY@1800 Qty: 14 RF: 0 omeprazole 40 mg capsule,delayed release(DR/EC) 40 mg PO BID Qty: 60 RF: 0 fluoxetine [Prozac] 20 mg Capsule 20 mg PO DAILY RF: 0 metformin 1,000 mg tablet 1,000 mg PO BID RF: 0 spironolactone 25 mg Tablet 25 mg PO DAILY RF: 0 labetalol 300 mg Tablet 300 mg BID RF: 0 Discharge Instructions Instructions: Gastritis (ED), Abdominal Pain (ED) Additional Instructions: Your CT scan shows no evidence of surgical process at this time. Your blood levels are all normal. I suspect that your symptoms are most likely from the return of your gastric ulcers, in conjunction with a hemorrhoid. Please avoid any spicy foods, tomato-based products, citrus products, or mint derived products. Please stick with a bland diet of rice, oatmeal, bland mashed potatoes, crackers for the next few days. If you notice any worsening of your symptoms, or any new symptoms such as worsening vomiting, worse diarrhea, fever, chills, shortness of breath, chest pain, numbness, weakness, or fainting , please return immediately to the emergency department for reevaluation. Please follow up with your primary care provider as soon as possible for reassessment and reevaluation. As always, it was a pleasure participating in your medical care today. Referrals: Jason Ruth, [employer] [Primary Care Provider] - Medical Decision Making This is a 38-year-old male with a past medical history of obesity, diabetes, gastric ulcers, who presents today for evaluation of generalized burning pain in his near entire abdomen, as well as burning with diarrhea, and some bright red blood per rectum for the last day. Patient has eaten some greasy foods recently but denies any spicy foods. He did have an episode nearly identical to this 2 months ago, at which time EGD showed evidence of gastritis, but no other significant abnormality. Exam demonstrates relatively benign abdomen with no significant or severe tenderness. Mild generalized tenderness throughout though, more primarily in the epigastric region. Vital signs are notably stable with no hypertension or tachycardia. I suspect patient's symptoms likely related to a GI ulcer, most likely in the stomach causing subsequent mild diarrhea. He denies any melena or dark tarry diarrhea. However because of his generalized abdominal pain we will get a CT scan of the abdomen to rule out acute process. We will give notable GI cocktails, hydrate, and reassess. Of note rectal exam shows no evidence of blood, but he does have significant hemorrhoids. This may be a component of his bright red blood per rectum. 9:33 PM On reassessment the patient is feeling significantly improved and his symptoms. The pain in the burning is notably improved. Vital signs remained stable. Laboratory work-up is notably benign with no significant drop in his hemoglobin. CT scan results per virtual radiologist showed no evidence of acute abdominal pathology. He is tolerated p.o. very well. Repeat abdominal exam shows no evidence of acute surgical process. He has had no more episodes of diarrhea here or bloody bowel movements. I suspect his symptoms most likely secondary to worsening of his chronic gastritis. He does admit to missing few doses of his stomach medications as of late. I also concerned that the notable hemorrhoids found on exam also potentially a component of the blood that he is noticed on his stool the last day. We discussed with the patient overnight observation, versus discharge and at this time the patient has elected to go home. We discussed the risks and benefits of this and the patient understands. We will recommend appropriate diet restrictions at home over the next few days, will add ranitidine, and recommend continuation of his omeprazole and Carafate. We discussed the importance of prompt follow-up within the next 72 hours with his PCP for reassessment. We discussed red flags which to return. I have extensively reviewed the treatment plan and discharge instructions with the patient and their family. I have addressed all patient concerns at this time. The patient and family was made aware of what symptoms to monitor for that would warrant a return to the emergency department. Discussed the plan with the patient and family, they demonstrate verbal understanding and agreement with our assessment and plan at this time. FINDINGS: Liver: Normal. No mass. Gallbladder and bile ducts: Normal. No calcified stones. No ductal dilation. Pancreas: Normal. No ductal dilation. Spleen: Normal. No splenomegaly. Adrenals: Normal. No mass. Kidneys and ureters: Punctate nonobstructing left renal calculus Stomach and bowel: Diverticulosis of the rectosigmoid. No diverticulitis. Appendix: Appendectomy Intraperitoneal space: Normal. No free air. No significant fluid collection. Vasculature: Normal. No abdominal aortic aneurysm. Lymph nodes: Normal. No enlarged lymph nodes. Bladder: Urachus is identified from the umbilical region to the anterior aspect of the bladder. Reproductive: Unremarkable as visualized. Bones/joints: No acute fracture. No dislocation. Soft tissues: Unremarkable. IMPRESSION: No acute process Thank you for allowing us to participate in the care of your patient. Dictated and Authenticated by: Jung Lim MD [facility] General Date/Time Provider Initiated Documentation: 04/09/19 19:49. HPI Narrative: This is a 38-year-old male with a past medical history of gastric ulcers, type 2 diabetes, hypertension, and appendectomy, and previous admission for abdominal pain with mild upper GI bleeding, who presents today for abdominal pain. The patient states that for the last day and a half he has had mild burning sensation in his stomach. He did have some greasy foods but denies any significant spicy foods. His bowel movements have been liquid diarrhea, and he is also noticed some bright red blood per rectum. He did have one episode of vomiting earlier today. The patient's abdominal pain is notably generalized. He denies any chest neck arm or shoulder pain. He denies any hematemesis. He denies any fever or chills. The patient had an episode very similar to this on 03/04 of this year, at that time he also had bright red blood per rectum with diarrhea and abdominal pain. CT scan was negative at that time, and EGD showed evidence of notable gastritis. Patient has no other complaints at this time. Of note he does state that he has been missing doses of his omeprazole and sucralfate as of late. Related Data Home Medications Medication Instructions Recorded Confirmed spironolactone 25 mg PO DAILY 02/26/19 04/09/19 labetalol 300 mg BID 03/03/19 04/09/19 acetaminophen [Mapap Extra 1,000 mg PO Q6H PRN PRN #0 tab 03/07/19 04/09/19 Strength] lidocaine [Lidoderm] 2 patch TOPICAL DAILY@1800 #14 ea 03/07/19 04/09/19 omeprazole 40 mg PO BID #60 cap 03/07/19 04/09/19 sucralfate 1 g PO AC & HS #120 tab 03/07/19 04/09/19 fluoxetine [Prozac] 20 mg PO DAILY 04/09/19 04/09/19 metformin 1,000 mg PO BID 04/09/19 04/09/19 ranitidine HCl 300 mg PO DAILY #90 cap 04/09/19 Previous Rx's Medication Instructions Recorded acetaminophen [Mapap Extra 1,000 mg PO Q6H PRN PRN #0 tab 03/07/19 Strength] lidocaine [Lidoderm] 2 patch TOPICAL DAILY@1800 #14 ea 03/07/19 omeprazole 40 mg PO BID #60 cap 03/07/19 sucralfate 1 g PO AC & HS #120 tab 03/07/19 ranitidine HCl 300 mg PO DAILY #90 cap 04/09/19 Allergies Allergy/AdvReac Type Severity Reaction Status Date / Time lisinopril Allergy Anaphylaxsi Unverified 04/09/19 20:26 s lactose AdvReac Diarrhea Unverified 04/09/19 20:26 General Stated Complaint: Abd Prob FILEMON: 3 Review of Systems Review of Systems All systems reviewed & are unremarkable except as noted in HPI and below PFSH Social History Smoking/Tobacco Use Status: Former Tobacco Use Alcohol Intake: never Drug use: Never Substance use type: does not use 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 3.ENT: Atraumatic external nose and ears. Moist MM. Neck: Symmetric, trachea midline, No thyromegaly. 4.CVS: +S1/S2, No murmurs or gallops. Peripheral pulses 2+ and equal in all extremities. Brisk capillary refill in all extremities. 5.RESP: Unlabored respiratory effort. Clear to auscultation bilaterally. No wheezes rales or rhonchi 6.GI: Soft, Nondistended, No hepatosplenomegaly. No guarding or rebound. Mild generalized tenderness throughout. More notably in the epigastric region. Rectal exam shows no evidence of Graves' red blood or dark stool. Notable hemorrhoids are present. Nurse was at bedside for exam. No evidence of anal fissure. No burning sensation during digital rectal exam, no evidence of anal fissure. 7.MSK: Normocephalic/Atraumatic, Extremities w/o deformity or ttp No cyanosis or clubbing, Normal movement of all extremities 8.Skin: Warm, Dry. No rashes or lesions. 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 Sensation grossly intact, no focal neurologic deficits. 10.Psych: (AAO) x3. Appropriate mood and affect Course Vital Signs Temperature 37.3 C 04/09/19 19:54 Pulse 80 04/09/19 19:54 Respiratory Rate 18 04/09/19 19:54 Blood Pressure 160/94 H 04/09/19 19:54 Pulse Oximetry 100 04/09/19 19:54 Temperature 37.3 C 04/09/19 19:54 Temperature Source Skin 04/09/19 19:54 Pulse 80 04/09/19 19:54 Respiratory Rate 18 04/09/19 19:54 Blood Pressure 160/94 H 04/09/19 19:54 Blood Pressure Position Sitting 04/09/19 19:54 Pulse Oximetry 100 04/09/19 19:54 Oxygen Delivery Method Room Air 04/09/19 19:54 Oxygen Flow Rate 0 04/09/19 19:54
[2019-04-09] MEDS: Dicyclomine 20 MG TAB PO (20:15)
[2019-04-09] MEDS: Normal Saline 1,000 ML 1000 ML IV (20:15)
[2019-04-09 20:19] LABS: Abs Immature Grans 0.02 k/cumm (0.0-0.09); Absolute Basophil Count 0.11 k/cumm (0.0-0.2); Absolute Eosinophil Count 0.37 k/cumm (0.0-0.7); Absolute Lymphocyte Count 1.53 k/cumm (1.2-3.4); Absolute Monocyte Count 0.84 k/cumm (0.11-0.7); Basophils % 0.9; Eosinophils % 3.1; HCT 45.5 % (40.0-50.0); HGB 15.5 g/dL (13.5-17.5); Immature Grans % 0.2; Lymphocytes % 12.7; Mean Corp. HGB Concentration 34.1 g/dL (32.0-36.0); Mean Corpuscular Hemoglobin 28.6 pg (27.0-33.0); Mean Corpuscular Volume 83.9 fL (80-95); Mean Platelet Volume 9.9 fL (8.0-11.0); Neutrophils % 76.1; Platelet Count 390 x1000/uL (130-400); RBC 5.42 m/cumm (4.50-6.00); RBC Distribution Width 14.9 % (11.8-14.1); White Blood Cell Count 12.03 k/cumm (4.4-10.8)
[2019-04-09 20:20] LABS: Absolute Neutrophil Count 9.15 k/cumm (1.2-6.7)
[2019-04-09 20:31] LABS: ALT 85 U/L (12-78); AST 27 U/L (15-37); Albumin 3.8 g/dL (3.4-5.0); Alkaline Phosphatase 86 U/L (46-116); Anion Gap 13.3 mmol/L (3-11); BUN 10 mg/dL (7-18); Bilirubin, Total 0.7 mg/dL (0.2-1.0); CO2 23.7 mmol/L (21.0-32.0); CREATININE 0.98 mg/dL (0.70-1.30); Calcium 9.5 mg/dL (8.5-10.1); Chloride 105 mmol/L (98-107); Glucose 98 mg/dL (70-100); Lipase 85 U/L (73-393); Potassium 3.6 mmol/L (3.5-5.1); Sodium 142 mmol/L (136-145); Total Protein 8.1 g/dL (6.4-8.2)
[2019-04-09] MEDS: Omnipaque 350 MG/ML 100 ML BTL IV (20:42)
--- NOTE | 2019-04-09 21:28 | DI.VRAD_ITS ---
EXAM: CT Abdomen and Pelvis With Contrast EXAM DATE/TIME: 04/09/2019 8:07 PM CLINICAL HISTORY: 38 years old, male; Other: Mid abdominal pain; Prior surgery; Surgery date: 6+ months; Surgery type: Appendectomy; Patient HX: Mid abdomen pain, band like across mid abdomen, recent gastritis TECHNIQUE: Imaging protocol: Axial computed tomography images of the abdomen and pelvis with intravenous contrast. Coronal and sagittal reformatted images were created and reviewed. Radiation optimization: All CT scans at this facility use at least one of these dose optimization techniques: automated exposure control; mA and/or kV adjustment per patient size (includes targeted exams where dose is matched to clinical indication); or iterative reconstruction. Contrast material: OMNIPAQUE 350; Contrast volume: 125 ml; Contrast route: IV; COMPARISON: US renal 09/07/2018 1:46 PM FINDINGS: Liver: Normal. No mass. Gallbladder and bile ducts: Normal. No calcified stones. No ductal dilation. Pancreas: Normal. No ductal dilation. Spleen: Normal. No splenomegaly. Adrenals: Normal. No mass. Kidneys and ureters: Punctate nonobstructing left renal calculus Stomach and bowel: Diverticulosis of the rectosigmoid. No diverticulitis. Appendix: Appendectomy Intraperitoneal space: Normal. No free air. No significant fluid collection. Vasculature: Normal. No abdominal aortic aneurysm. Lymph nodes: Normal. No enlarged lymph nodes. Bladder: Urachus is identified from the umbilical region to the anterior aspect of the bladder. Reproductive: Unremarkable as visualized. Bones/joints: No acute fracture. No dislocation. Soft tissues: Unremarkable. IMPRESSION: No acute process Dictated and Authenticated by: Jung Lim MD. Ordering:GIRISH Macias MD
== END 2019-04-09 22:07 | disposition home or self-care (01) ==
PROVIDERS: Emergency Provider Student in an Organized Health Care Education/Training Program; PCP Nurse Practitioner Family
DX: K29.01 Acute gastritis with bleeding (principal); E11.9 Type 2 diabetes mellitus without complications; Z79.84 Long term (current) use of oral hypoglycemic drugs
CPT/HCPCS: 36415; 80053; 83690; 96361; 96374; 99285; 74177; 85025; 99284; J3490

== ENCOUNTER 2019-04-15 23:57 | Observation (INO) | payer OTHER, SELFPAY ==
[2019-04-16] VITALS: BP 183/90; PULSE 83; RESP 16; TEMP 36.8; O2SAT 99
--- NOTE | 2019-04-16 00:07 | W.ED.GENAD ---
Discharge Plan Disposition [facility] Condition: Stable Discharge Details Chief Complaint: Suicide-Atempt Clinical Impression: Suicidal ideation, Thoughts of harming others Admit Date/Time: 04/16/19 02:24 Admit Provider: Jerry Flores Attending Provider: Jerry Flores Primary Care Provider: Jason Ruth ED Provider: Judy Diaz Medical Decision Making 0002 --38-year-old male with history of diabetes, hypertension, morbid obesity, anxiety and depression who presents with suicidal attempt with insulin 2 days ago and continued suicidal ideation. States he has a plan to inject himself with more insulin or possibly hurt his family if he goes home tonight. Patient states he cannot go home tonight due to these concerns. BP hypertensive. He has a history of hypertension. Remainder vitals within normal limits. Denies chest pain or sob. Will check screening labs due to medical history and recent use of insulin. Will recommend psychiatric admission due to suicidal and homicidal ideation. 0115 --patient is medically cleared. Glucose 106. Anion gap 13. Normal bicarb. Will give p.o. fluids. Huddle done with care management, nursing admitting supervisor, mental health and nursing. If no available beds for placement tonight, will admit to the floor awaiting inpatient psychiatric hospitalization. 0215 --d/w mental health - there are available beds at [facility] and [facility] but will likely not take patient overnight. Will admit patient to the floor while awaiting placement. 0220 --d/w hospitalist - accepts pt for admission to floor. Medical Records Medical records reviewed: Yes I reviewed the patient's medical records. Lab Data Lab results reviewed: Yes I reviewed the patient's lab results. Laboratory Tests Range/Units 04/16/19 04/16/19 04/16/19 00:12 00:12 00:15 WBC (4.4-10.8) k/cumm RBC (4.50-6.00) m/cumm Hgb (13.5-17.5) g/dL Hct (40.0-50.0) % MCV (80-95) fL MCH (27.0-33.0) pg MCHC (32.0-36.0) g/dL RDW (11.8-14.1) % Plt Count (130-400) x1000/uL MPV (8.0-11.0) fL Immature Gran % Neutrophils % Lymphocytes % Monocytes % Eosinophils % Basophils % Absolute Neutrophils (1.2-6.7) k/cumm Absolute Lymphocytes (1.2-3.4) k/cumm Absolute Monocytes (0.11-0.7) k/cumm Absolute Eosinophils (0.0-0.7) k/cumm Absolute Basophils (0.0-0.2) k/cumm Sodium (136-145) mmol/L 141 Potassium (3.5-5.1) mmol/L 3.7 Chloride (98-107) mmol/L 104 Carbon Dioxide (21.0-32.0) mmol/L 23.7 Anion Gap (3-11) mmol/L 13.3 H BUN (7-18) mg/dL 12 Creatinine (0.70-1.30) mg/dL 0.94 Estimated GFR/1.73 m2 (mL/min/1.73m2) >= 60.00 Glucose (70-100) mg/dL 106 H Calcium (8.5-10.1) mg/dL 9.8 Total Bilirubin (0.2-1.0) mg/dL 0.8 AST (15-37) U/L 44 H ALT (12-78) U/L 136 H Alkaline Phosphatase (46-116) U/L 88 Total Protein (6.4-8.2) g/dL 8.3 H Albumin (3.4-5.0) g/dL 4.0 Urine Color (Yellow) Yellow Urine Clarity (Clear) Clear Urine pH (5-8) 6.0 Ur Specific [place] (1.005-1.025) >= 1.030 H Urine Protein (Negative) mg/dL 30 H Urine Ketones (Negative) mg/dL Trace H Urine Blood (Negative) Negative Urine Nitrite (Negative) Negative Urine Bilirubin (Negative) Small H Urine Urobilinogen (Up TO 0.2) EU/dL 1.0 H Ur Leukocyte Esterase (Negative) Trace H Urine RBC (0-2) 0-2 Urine WBC (0-5) HPF 0-2 Ur Epithelial Cells (Negative) HPF Moderate Urine Crystals (Negative) HPF Negative Urine Bacteria (Negative) HPF Few Urine Casts (Negative) LPF Negative Urine Mucus (Negative) Negative Ur Culture Indicated? No/sq. contamination Urine Glucose (Negative) mg/dL Negative Urine Opiates Screen (Negative) Negative Urine Methadone Screen (Negative) Negative Ur Barbiturates Screen (Negative) Negative Ur Tricyclics Screen (Negative) Negative Ur Amphetamines Screen (Negative) Negative U Benzodiazepines Scrn (Negative) Negative Urine Cocaine Screen (Negative) Negative Ur THC Screen (Negative) Positive Ethyl Alcohol (<3) mg/dL < 3.0 Range/Units 04/16/19 00:15 WBC (4.4-10.8) k/cumm 11.19 H RBC (4.50-6.00) m/cumm 5.41 Hgb (13.5-17.5) g/dL 15.3 Hct (40.0-50.0) % 46.0 MCV (80-95) fL 85.0 MCH (27.0-33.0) pg 28.3 MCHC (32.0-36.0) g/dL 33.3 RDW (11.8-14.1) % 15.1 H Plt Count (130-400) x1000/uL 350 MPV (8.0-11.0) fL 10.4 Immature Gran % 0.3 Neutrophils % 72.0 Lymphocytes % 15.8 Monocytes % 7.5 Eosinophils % 3.2 Basophils % 1.2 Absolute Neutrophils (1.2-6.7) k/cumm 8.06 H Absolute Lymphocytes (1.2-3.4) k/cumm 1.77 Absolute Monocytes (0.11-0.7) k/cumm 0.84 H Absolute Eosinophils (0.0-0.7) k/cumm 0.36 Absolute Basophils (0.0-0.2) k/cumm 0.13 Sodium (136-145) mmol/L Potassium (3.5-5.1) mmol/L Chloride (98-107) mmol/L Carbon Dioxide (21.0-32.0) mmol/L Anion Gap (3-11) mmol/L BUN (7-18) mg/dL Creatinine (0.70-1.30) mg/dL Estimated GFR/1.73 m2 (mL/min/1.73m2) Glucose (70-100) mg/dL Calcium (8.5-10.1) mg/dL Total Bilirubin (0.2-1.0) mg/dL AST (15-37) U/L ALT (12-78) U/L Alkaline Phosphatase (46-116) U/L Total Protein (6.4-8.2) g/dL Albumin (3.4-5.0) g/dL Urine Color (Yellow) Urine Clarity (Clear) Urine pH (5-8) Ur Specific Flint (1.005-1.025) Urine Protein (Negative) mg/dL Urine Ketones (Negative) mg/dL Urine Blood (Negative) Urine Nitrite (Negative) Urine Bilirubin (Negative) Urine Urobilinogen (Up TO 0.2) EU/dL Ur Leukocyte Esterase (Negative) Urine RBC (0-2) Urine WBC (0-5) HPF Ur Epithelial Cells (Negative) HPF Urine Crystals (Negative) HPF Urine Bacteria (Negative) HPF Urine Casts (Negative) LPF Urine Mucus (Negative) Ur Culture Indicated? Urine Glucose (Negative) mg/dL Urine Opiates Screen (Negative) Urine Methadone Screen (Negative) Ur Barbiturates Screen (Negative) Ur Tricyclics Screen (Negative) Ur Amphetamines Screen (Negative) U Benzodiazepines Scrn (Negative) Urine Cocaine Screen (Negative) Ur THC Screen (Negative) Ethyl Alcohol (<3) mg/dL HPI General Mode of arrival: ambulatory. Date/Time Provider Initiated Documentation: 04/16/19 00:05. Limitations to Documentation: no limitations. Information obtained by: patient. HPI Narrative: Pt is a 38yo M who presents to the ED with suicidal thoughts and an attempt at suicide 2 days ago with taking 120 units of insulin. Pt states 2 days ago he injected 60 units of novolog twice within a couple hours of each other. He states he did not feel well after that but states his sugar has been normal since then. Pt states he has a h/o diabetes and was taken off his novolog 1 month ago but had some left over. 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 He states he also tore-up his house last night and fears that he may do this again or hurt his or children if he goes home. He was driven here by a coworker. Pt states he was admitted to [facility] for suicidal ideation 2 weeks ago and was started on Prozac but states it is not working. He denies any acute medical complaints. He denies alcohol or drug use. He states last night he sliced his fingers with sharp edge of ceramic to harm himself. He states his tetanus was up to date. Related Data Home Medications Medication Instructions Recorded Confirmed spironolactone 25 mg PO DAILY 02/26/19 04/16/19 labetalol 300 mg BID 03/03/19 04/16/19 acetaminophen [Mapap Extra 1,000 mg PO Q6H PRN PRN #0 tab 03/07/19 04/16/19 Strength] omeprazole 40 mg PO BID #60 cap 03/07/19 04/16/19 sucralfate 1 g PO AC & HS #120 tab 03/07/19 04/16/19 fluoxetine [Prozac] 20 mg PO DAILY 04/09/19 04/16/19 metformin 1,000 mg PO BID 04/09/19 04/16/19 ranitidine HCl 300 mg PO DAILY #90 cap 04/09/19 04/16/19 Previous Rx's Medication Instructions Recorded acetaminophen [Mapap Extra 1,000 mg PO Q6H PRN PRN #0 tab 03/07/19 Strength] omeprazole 40 mg PO BID #60 cap 03/07/19 sucralfate 1 g PO AC & HS #120 tab 03/07/19 ranitidine HCl 300 mg PO DAILY #90 cap 04/09/19 Allergies Allergy/AdvReac Type Severity Reaction Status Date / Time lisinopril Allergy Anaphylaxsi Unverified 04/09/19 20:26 s lactose AdvReac Diarrhea Unverified 04/09/19 20:26 General Stated Complaint: Suicide-Atempt FILEMON: 2 Review of Systems Review of Systems All systems reviewed & are unremarkable except as noted in HPI and below Constitutional Reports as per HPI, Denies chills and Denies fever(s) Eyes Denies blurry vision ENT Denies dizziness, Denies sore throat and Denies throat swelling Cardiovascular Denies chest pain and Denies dyspnea Respiratory Denies cough and Denies dyspnea Gastrointestinal Denies abdominal pain, Denies diarrhea and Denies vomiting Genitourinary Denies hematuria and Denies dysuria Musculoskeletal Denies back pain and Denies numbness Integumentary/Breasts Denies lesions and Denies rash Neurologic Denies dizziness, Denies focal weakness and Denies numbness Psychiatric Reports suicidal ideation Allergic/Immunologic Denies throat swelling [facility] Medical History Gastritis (Acute) Anemia (Chronic) Abdominal pain (Acute) Diabetes type 2, controlled (Acute) Diabetes mellitus (Chronic) Essential hypertension (Chronic) Surgical History History of appendectomy (Resolved) Family History Father Diabetes Social History Smoking/Tobacco Use Status: Former Tobacco Use Alcohol Intake: never Drug use: Never Substance use type: does not use 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 Do you feel safe at home: Yes Do you feel safe in your relationship?: Yes Exam Const General: cooperative, healthy appearing and no acute distress HENMT Head: normal to inspection Face and sinus: normal facial exam Eyes General: appearance normal, both eyes and all related structures Pupils: PERRL EOM: EOM intact bilaterally Neck Neck: normal visual inspection and No submandibular swelling Lymphatic: no lymphadenopathy noted Chest Chest: normal inspection of the chest and no tenderness Resp Effort & Inspection: normal respiratory effort and able to speak in complete sentences Auscultation: clear to auscultation bilaterally Cardio Rate: regular rate Rhythm: regular rhythm GI Inspection: normal to inspection and obesity Palpation: soft, not firm, not rigid and nontender Auscultation: normal bowel sounds Skin General skin exam: no rashes or lesions noted Neuro General: alert, awake, oriented x3 and gait normal Cognition: normal cognition Speech: speech normal Motor: muscle tone normal throughout Sensory Exam: no sensory deficits noted Extrem General: normal to inspection, full ROM, normal capillary refill, no calf tenderness bilaterally and no edema Psych Appearance: grossly normal Mental Status: mental status grossly normal Speech and Movement: speech and movement normal Affect: blunted Attitude: cooperative Course Vital Signs Temperature 98.2 F 04/16/19 00:00 Pulse 83 04/16/19 00:00 Respiratory Rate 16 04/16/19 00:00 Blood Pressure 183/90 H 04/16/19 00:00 Pulse Oximetry 99 04/16/19 00:00 Temperature 98.2 F 04/16/19 00:00 Pulse 83 04/16/19 00:00 Respiratory Rate 16 04/16/19 00:00 Respiratory Effort 04/16/19 00:00 Blood Pressure 183/90 H 04/16/19 00:00 Blood Pressure Position Sitting 04/16/19 00:00 Pulse Oximetry 99 04/16/19 00:00 Oxygen Delivery Method Room Air 04/16/19 00:00 Oxygen Flow Rate 0 04/16/19 00:00
--- NOTE | 2019-04-16 00:19 | ED.GENADUL_ITS ---
Discharge Plan Disposition Patient Disposition: [facility] INPATIENT Condition: Stable Discharge Details Chief Complaint: Suicide-Atempt Clinical Impression: Suicidal ideation, Thoughts of harming others Admit Date/Time: 04/16/19 02:24 Admit Provider: Jerry Flores Attending Provider: Jerry Flores Primary Care Provider: Jason Ruth ED Provider: Judy Diaz Medical Decision Making 0002 --38-year-old male with history of diabetes, hypertension, morbid obesity, anxiety and depression who presents with suicidal attempt with insulin 2 days ago and continued suicidal ideation. States he has a plan to inject himself with more insulin or possibly hurt his family if he goes home tonight. Patient states he cannot go home tonight due to these concerns. BP hypertensive. He has a history of hypertension. Remainder vitals within normal limits. Denies chest pain or sob. Will check screening labs due to medical history and recent use of insulin. Will recommend psychiatric admission due to suicidal and homicidal ideation. 0115 --patient is medically cleared. Glucose 106. Anion gap 13. Normal bicarb. Will give p.o. fluids. Huddle done with care management, nursing pleating supervisor, mental health and nursing. If no available beds for placement tonight, will admit to the floor awaiting inpatient psychiatric hospitalization. 0215 --d/w mental health - there are available beds at [facility] and [place] but will likely not take patient overnight. Will admit patient to the floor while awaiting placement. 0220 --d/w hospitalist - accepts pt for admission to floor. Medical Records Medical records reviewed: Yes I reviewed the patient's medical records. Lab Data Lab results reviewed: Yes I reviewed the patient's lab results. Laboratory Tests Range/Units 04/16/19 04/16/19 04/16/19 00:12 00:12 00:15 WBC (4.4-10.8) k/cumm RBC (4.50-6.00) m/cumm Hgb (13.5-17.5) g/dL Hct (40.0-50.0) % MCV (80-95) fL MCH (27.0-33.0) pg MCHC (32.0-36.0) g/dL RDW (11.8-14.1) % Plt Count (130-400) x1000/uL MPV (8.0-11.0) fL Immature Gran % Neutrophils % Lymphocytes % Monocytes % Eosinophils % Basophils % Absolute Neutrophils (1.2-6.7) k/cumm Absolute Lymphocytes (1.2-3.4) k/cumm Absolute Monocytes (0.11-0.7) k/cumm Absolute Eosinophils (0.0-0.7) k/cumm Absolute Basophils (0.0-0.2) k/cumm Sodium (136-145) mmol/L 141 Potassium (3.5-5.1) mmol/L 3.7 Chloride (98-107) mmol/L 104 Carbon Dioxide (21.0-32.0) mmol/L 23.7 Anion Gap (3-11) mmol/L 13.3 H BUN (7-18) mg/dL 12 Creatinine (0.70-1.30) mg/dL 0.94 Estimated GFR/1.73 m2 (mL/min/1.73m2) >= 60.00 Glucose (70-100) mg/dL 106 H Calcium (8.5-10.1) mg/dL 9.8 Total Bilirubin (0.2-1.0) mg/dL 0.8 AST (15-37) U/L 44 H ALT (12-78) U/L 136 H Alkaline Phosphatase (46-116) U/L 88 Total Protein (6.4-8.2) g/dL 8.3 H Albumin (3.4-5.0) g/dL 4.0 Urine Color (Yellow) Yellow Urine Clarity (Clear) Clear Urine pH (5-8) 6.0 Ur Specific May (1.005-1.025) >= 1.030 H Urine Protein (Negative) mg/dL 30 H Urine Ketones (Negative) mg/dL Trace H Urine Blood (Negative) Negative Urine Nitrite (Negative) Negative Urine Bilirubin (Negative) Small H Urine Urobilinogen (Up TO 0.2) EU/dL 1.0 H Ur Leukocyte Esterase (Negative) Trace H Urine RBC (0-2) 0-2 Urine WBC (0-5) HPF 0-2 Ur Epithelial Cells (Negative) HPF Moderate Urine Crystals (Negative) HPF Negative Urine Bacteria (Negative) HPF Few Urine Casts (Negative) LPF Negative Urine Mucus (Negative) Negative Ur Culture Indicated? No/sq. contamination Urine Glucose (Negative) mg/dL Negative Urine Opiates Screen (Negative) Negative Urine Methadone Screen (Negative) Negative Ur Barbiturates Screen (Negative) Negative Ur Tricyclics Screen (Negative) Negative Ur Amphetamines Screen (Negative) Negative U Benzodiazepines Scrn (Negative) Negative Urine Cocaine Screen (Negative) Negative Ur THC Screen (Negative) Positive Ethyl Alcohol (<3) mg/dL < 3.0 Range/Units 04/16/19 00:15 WBC (4.4-10.8) k/cumm 11.19 H RBC (4.50-6.00) m/cumm 5.41 Hgb (13.5-17.5) g/dL 15.3 Hct (40.0-50.0) % 46.0 MCV (80-95) fL 85.0 MCH (27.0-33.0) pg 28.3 MCHC (32.0-36.0) g/dL 33.3 RDW (11.8-14.1) % 15.1 H Plt Count (130-400) x1000/uL 350 MPV (8.0-11.0) fL 10.4 Immature Gran % 0.3 Neutrophils % 72.0 Lymphocytes % 15.8 Monocytes % 7.5 Eosinophils % 3.2 Basophils % 1.2 Absolute Neutrophils (1.2-6.7) k/cumm 8.06 H Absolute Lymphocytes (1.2-3.4) k/cumm 1.77 Absolute Monocytes (0.11-0.7) k/cumm 0.84 H Absolute Eosinophils (0.0-0.7) k/cumm 0.36 Absolute Basophils (0.0-0.2) k/cumm 0.13 Sodium (136-145) mmol/L Potassium (3.5-5.1) mmol/L Chloride (98-107) mmol/L Carbon Dioxide (21.0-32.0) mmol/L Anion Gap (3-11) mmol/L BUN (7-18) mg/dL Creatinine (0.70-1.30) mg/dL Estimated GFR/1.73 m2 (mL/min/1.73m2) Glucose (70-100) mg/dL Calcium (8.5-10.1) mg/dL Total Bilirubin (0.2-1.0) mg/dL AST (15-37) U/L ALT (12-78) U/L Alkaline Phosphatase (46-116) U/L Total Protein (6.4-8.2) g/dL Albumin (3.4-5.0) g/dL Urine Color (Yellow) Urine Clarity (Clear) Urine pH (5-8) Ur Specific May (1.005-1.025) Urine Protein (Negative) mg/dL Urine Ketones (Negative) mg/dL Urine Blood (Negative) Urine Nitrite (Negative) Urine Bilirubin (Negative) Urine Urobilinogen (Up TO 0.2) EU/dL Ur Leukocyte Esterase (Negative) Urine RBC (0-2) Urine WBC (0-5) HPF Ur Epithelial Cells (Negative) HPF Urine Crystals (Negative) HPF Urine Bacteria (Negative) HPF Urine Casts (Negative) LPF Urine Mucus (Negative) Ur Culture Indicated? Urine Glucose (Negative) mg/dL Urine Opiates Screen (Negative) Urine Methadone Screen (Negative) Ur Barbiturates Screen (Negative) Ur Tricyclics Screen (Negative) Ur Amphetamines Screen (Negative) U Benzodiazepines Scrn (Negative) Urine Cocaine Screen (Negative) Ur THC Screen (Negative) Ethyl Alcohol (<3) mg/dL HPI General Mode of arrival: ambulatory . Date/Time Provider Initiated Documentation: 04/16/19 00:05 . Limitations to Documentation: no limitations . Information obtained by: patient . HPI Narrative: Pt is a 38yo M who presents to the ED with suicidal thoughts and an attempt at suicide 2 days ago with taking 120 units of insulin. Pt states 2 days ago he injected 60 units of novolog twice within a couple hours of each other. He states he did not feel well after that but states his sugar has been normal since then. Pt states he has a h/o diabetes and was taken off his novolog 1 month ago but had some left over. 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 He states he also tore-up his house last night and fears that he may do this again or hurt his or children if he goes home. He was driven here by a coworker. Pt states he was admitted to [facility] for suicidal ideation 2 weeks ago and was started on Prozac but states it is not working. He denies any acute medical complaints. He denies alcohol or drug use. He states last night he sliced his fingers with sharp edge of ceramic to harm himself. He states his tetanus was up to date. Related Data Home Medications Medication Instructions Recorded Confirmed spironolactone 25 mg PO DAILY 02/26/19 04/16/19 labetalol 300 mg BID 03/03/19 04/16/19 acetaminophen [Mapap Extra 1,000 mg PO Q6H PRN PRN #0 tab 03/07/19 04/16/19 Strength] omeprazole 40 mg PO BID #60 cap 03/07/19 04/16/19 sucralfate 1 g PO AC & HS #120 tab 03/07/19 04/16/19 fluoxetine [Prozac] 20 mg PO DAILY 04/09/19 04/16/19 metformin 1,000 mg PO BID 04/09/19 04/16/19 ranitidine HCl 300 mg PO DAILY #90 cap 04/09/19 04/16/19 Previous Rx's Medication Instructions Recorded acetaminophen [Mapap Extra 1,000 mg PO Q6H PRN PRN #0 tab 03/07/19 Strength] omeprazole 40 mg PO BID #60 cap 03/07/19 sucralfate 1 g PO AC & HS #120 tab 03/07/19 ranitidine HCl 300 mg PO DAILY #90 cap 04/09/19 Allergies Allergy/AdvReac Type Severity Reaction Status Date / Time lisinopril Allergy Anaphylaxsi Unverified 04/09/19 20:26 s lactose AdvReac Diarrhea Unverified 04/09/19 20:26 General Stated Complaint: Suicide-Atempt FILEMON: 2 Review of Systems Review of Systems All systems reviewed & are unremarkable except as noted in HPI and below Constitutional Reports as per HPI, Denies chills and Denies fever(s) Eyes Denies blurry vision ENT Denies dizziness, Denies sore throat and Denies throat swelling Cardiovascular Denies chest pain and Denies dyspnea Respiratory Denies cough and Denies dyspnea Gastrointestinal Denies abdominal pain, Denies diarrhea and Denies vomiting Genitourinary Denies hematuria and Denies dysuria Musculoskeletal Denies back pain and Denies numbness Integumentary/Breasts Denies lesions and Denies rash Neurologic Denies dizziness, Denies focal weakness and Denies numbness Psychiatric Reports suicidal ideation Allergic/Immunologic Denies throat swelling [facility] Medical History Gastritis (Acute) Anemia (Chronic) Abdominal pain (Acute) Diabetes type 2, controlled (Acute) Diabetes mellitus (Chronic) Essential hypertension (Chronic) Surgical History History of appendectomy (Resolved) Family History Father Diabetes Social History Smoking/Tobacco Use Status: Former Tobacco Use Alcohol Intake: never Drug use: Never Substance use type: does not use 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 Do you feel safe at home: Yes Do you feel safe in your relationship?: Yes Exam Const General: cooperative, healthy appearing and no acute distress HENMT Head: normal to inspection Face and sinus: normal facial exam Eyes General: appearance normal, both eyes and all related structures Pupils: PERRL EOM: EOM intact bilaterally Neck Neck: normal visual inspection and No submandibular swelling Lymphatic: no lymphadenopathy noted Chest Chest: normal inspection of the chest and no tenderness Resp Effort & Inspection: normal respiratory effort and able to speak in complete sentences Auscultation: clear to auscultation bilaterally Cardio Rate: regular rate Rhythm: regular rhythm GI Inspection: normal to inspection and obesity Palpation: soft, not firm, not rigid and nontender Auscultation: normal bowel sounds Skin General skin exam: no rashes or lesions noted Neuro General: alert, awake, oriented x3 and gait normal Cognition: normal cognition Speech: speech normal Motor: muscle tone normal throughout Sensory Exam: no sensory deficits noted Extrem General: normal to inspection, full ROM, normal capillary refill, no calf tenderness bilaterally and no edema Psych Appearance: grossly normal Mental Status: mental status grossly normal Speech and Movement: speech and movement normal Affect: blunted Attitude: cooperative Course Vital Signs Temperature 98.2 F 04/16/19 00:00 Pulse 83 04/16/19 00:00 Respiratory Rate 16 04/16/19 00:00 Blood Pressure 183/90 H 04/16/19 00:00 Pulse Oximetry 99 04/16/19 00:00 Temperature 98.2 F 04/16/19 00:00 Pulse 83 04/16/19 00:00 Respiratory Rate 16 04/16/19 00:00 Respiratory Effort 04/16/19 00:00 Blood Pressure 183/90 H 04/16/19 00:00 Blood Pressure Position Sitting 04/16/19 00:00 Pulse Oximetry 99 04/16/19 00:00 Oxygen Delivery Method Room Air 04/16/19 00:00 Oxygen Flow Rate 0 04/16/19 00:00
[2019-04-16 00:33] LABS: Abs Immature Grans 0.03 k/cumm (0.0-0.09); Absolute Basophil Count 0.13 k/cumm (0.0-0.2); Absolute Eosinophil Count 0.36 k/cumm (0.0-0.7); Absolute Lymphocyte Count 1.77 k/cumm (1.2-3.4); Absolute Monocyte Count 0.84 k/cumm (0.11-0.7); Absolute Neutrophil Count 8.06 k/cumm (1.2-6.7); Basophils % 1.2; Eosinophils % 3.2; HGB 15.3 g/dL (13.5-17.5); Immature Grans % 0.3; Lymphocytes % 15.8; Mean Corp. HGB Concentration 33.3 g/dL (32.0-36.0); Mean Corpuscular Hemoglobin 28.3 pg (27.0-33.0); Mean Platelet Volume 10.4 fL (8.0-11.0); Monocytes % 7.5; Platelet Count 350 x1000/uL (130-400); RBC 5.41 m/cumm (4.50-6.00); RBC Distribution Width 15.1 % (11.8-14.1); White Blood Cell Count 11.19 k/cumm (4.4-10.8)
[2019-04-16 00:35] LABS: Bilirubin Small (Negative); Blood Negative (Negative); Clarity Clear (Clear); Glucose Negative (Negative); Ketones Trace mg/dL (Negative); Leukocyte Esterase Trace (Negative); Nitrite Negative (Negative); Specific Gravity >= 1.030 (1.005-1.025)
[2019-04-16 00:41] LABS: Bacteria Few HPF (Negative); C & S Indicated? No/Sq. Contamination; Casts Negative LPF (Negative); Crystals Negative HPF (Negative); Epithelial Cells Moderate HPF (Negative); Mucus Negative (Negative); RBC 0-2 (0-2); WBC 0-2 HPF (0-5)
[2019-04-16 00:42] LABS: *AMPHETAMINES SCREEN URINE Negative (Negative); *BARBITURATES SCREEN URINE Negative (Negative); *BENZODIAZEPINES SCREEN URINE Negative (Negative); Cannabinoids THC POSITIVE (Negative); Cocaine Screen,Urine Negative (Negative); METHADONE URINE SCREEN Negative (Negative); OPIATES URINE SCREEN Negative (Negative)
[2019-04-16 00:43] LABS: Tricyclic Antidepressants Negative (Negative)
[2019-04-16 00:43] LABS: ALT 136 U/L (12-78); AST 44 U/L (15-37); Alkaline Phosphatase 88 U/L (46-116); Anion Gap 13.3 mmol/L (3-11); BUN 12 mg/dL (7-18); Bilirubin, Total 0.8 mg/dL (0.2-1.0); CO2 23.7 mmol/L (21.0-32.0); CREATININE 0.94 mg/dL (0.70-1.30); Calcium 9.8 mg/dL (8.5-10.1); Chloride 104 mmol/L (98-107); Glucose 106 mg/dL (70-100); Potassium 3.7 mmol/L (3.5-5.1); Sodium 141 mmol/L (136-145); Total Protein 8.3 g/dL (6.4-8.2)
[2019-04-16 00:45] LABS: ETHANOL BLOOD < 3.0 mg/dL (<3)
--- NOTE | 2019-04-16 02:03 | PDOC.MHCN ---
Date of service: 04/16/19 Time of Service: 00:56 Mental Health Crisis Note Presenting Issue How did you arrive at the ED and why did you come: Client had a co worker drop him off at the ED due to Suicidal tendencies, extreme anger (trashed house last night) Precipitating Factors Client stated that he was not feeling safe to go home, worries about hurting his and step daughter when he has angry outbursts. Client denies hallucination just has a lot going on in his head. Client stated that he cant keep feeling like this, client stated that if he goes home he will inject himself with insulin and fade away. Client stated that he is taking prozac but doesn't feel like it helps, client believes its making things worse. Disposition BEHAVIOR: Calm EYE CONTACT: some MOOD: depressed AFFECT: flat APPETITE: good-normal SLEEP(trouble falling/staying asleep: 4 hours a night- nightmares over past month Plan Client will stay at [facility] awaiting acceptance to a [facility] hospital. This worker sent referrals out to all hospitals with avaliable beds. Signature Clinician's Name/Title: Mustapha Vasquez Emergency clinician
--- NOTE | 2019-04-16 02:15 | PDOC.MHCN_ITS ---
Date of service: 04/16/19 Time of Service: 00:56 Mental Health Crisis Note Presenting Issue How did you arrive at the ED and why did you come: Client had a co worker drop him off at the ED due to Suicidal tendencies, extreme anger (trashed house last night) Precipitating Factors Client stated that he was not feeling safe to go home, worries about hurting his and step daughter when he has angry outbursts. Client denies hallucination just has a lot going on in his head. Client stated that he cant keep feeling like this, client stated that if he goes home he will inject himself with insulin and fade away. Client stated that he is taking prozac but doesn't feel like it helps, client believes its making things worse. Disposition BEHAVIOR: Calm EYE CONTACT: some MOOD: depressed AFFECT: flat APPETITE: good-normal SLEEP(trouble falling/staying asleep: 4 hours a night- nightmares over past m onth Plan Client will stay at [facility] awaiting acceptance to a [facility] hospital. This worker sent referrals out to all hospitals with avaliable beds. Signature Clinician's Name/Title: Mustapha Vasquez Emergency clinician
--- NOTE | 2019-04-16 02:30 | PDOC.ERCMPRO ---
Care Management Progress Note Miguelito asked a co worker to bring him to the ED tonight because he did not feel safe to go home for fear of harming his and child. He has had suicidal ideations and was admitted for inpatient Psychiatric care at [facility] 2 weeks ago. Since returning home he reports an attempted suicide 2 days ago using insulin he has at home. He also reports that he is currently experiencing suicidal ideations and has a plan to again use a large dose of the insulin he has at home He does not feel that the Prozac ordered by the Psychiatrist is working. VOLUNTARY FOR INPATIENT PSYCHIATRIC STABILIZATION. Miguelito has been cooperative and fully engaged in interactions with staff member since arriving at [facility]; he has demonstrated appropriate coping and communication skills, has articulated his needs and concerns. Huddle Participants: Delbert Arellano, RN; Opal, Plug Sorter, Mustapha, [facility] Lens Molding Equipment Operator, JAMAICA Valdivia-NIKOLAS Time and Date: 04/16/19 1:30AM Safety plan has been established with patient, and care team, to adhere to patient goals, identify restrictions based on behavioral status, address nutrition, and determine allowed personal belongings, tools for hygiene and personal care. Determine level of activity including ambulation, level of supervision, visitors, and determine privileges based on behaviors and level of engagement by pt. SAFETY PLAN: ED Room #5 TR 1. Will remain on suicide precautions and in paper clothes. 2. Will remain in room under direct supervision of one-on-one staff at all times provided by CPSO, SALES RECRUITMENT SPECIALIST, COMMUNICATIONS MAINTAINER senior oracle pl sql developer. 3. May have paper cups, plates, finger foods as well as a safetyl spoon with which to eat meals. 4. Follow [facility] Management of the Admitted Behavioral Health Patient policy. 5. Comfort bath system only. 6. No personal belongings 7. No visitors at this time 8. May use phone to call 9. Transfer to Transition Bed will be coordinated by the Plug Sorter based on staffing and bed availability. 10. May have TV if available 11. Voluntary Status actively suicidal with a plan. Must call [facility] and provide re-evaluation prior to exit from the department if he wishes to leave. [facility] Lens Molding Equipment Operator or [facility] will be coordinating placement at inpatient facility, last updates included the following: [facility] is currently voluntarily at [facility] and seeking inpatient admission when a bed becomes available. [facility] Frontline Lens Molding Equipment Operator will continue seeking placement. Please contact the Silk Screen Printer Machine Engine Lathe Set Up Operator Tool ([phone]) and [facility] Lens Molding Equipment Operator ([phone]) for any needed changes in the Safety Plan. Safety plan has been provided to interdepartmental care team including Clinical Coordinator , Nursing Stringer Machine Tender.
--- NOTE | 2019-04-16 03:02 | CMPROGNOTE_ITS ---
Care Management Progress Note Miguelito asked a co worker to bring him to the ED tonight because he did not feel safe to go home for fear of harming his and child. He has had suicidal ideations and was admitted for inpatient Psychiatric care at [facility] 2 weeks ago. Since returning home he reports an attempted suicide 2 days ago using insulin he has at home. He also reports that he is currently experiencing suicidal ideations and has a plan to again use a large dose of the insulin he has at home He does not feel that the Prozac ordered by the Psychiatrist is working. VOLUNTARY FOR INPATIENT PSYCHIATRIC STABILIZATION. Miguelito has been cooperative and fully engaged in interactions with staff member since arriving at [facility]; he has demonstrated appropriate coping and communication skills, has articulated his needs and concerns. Huddle Participants: Delbert Arellano, RN; Opal, Web Operations Manager, Mustapha, [facility] Die Maker Stamping, JAMAICA Valdivia-NIKOLAS Time and Date: 04/16/19 1:30AM Safety plan has been established with patient, and care team, to adhere to patient goals, identify restrictions based on behavioral status, address nutr ition, and determine allowed personal belongings, tools for hygiene and personal care. Determine level of activity including ambulation, level of supervision, visitors, and determine privileges based on behaviors and level of engagement by pt. SAFETY PLAN: ED Room #5 TR 1. Will remain on suicide precautions and in paper clothes. 2. Will remain in room under direct supervision of one-on-one staff at all times provided by CPSO, DIRECTOR OF LABOR RELATIONS, VASCULAR SURGEON director of employee development. 3. May have paper cups, plates, finger foods as well as a safetyl spoon with which to eat meals. 4. Follow [facility] Management of the Admitted Behavioral Health Patient policy. 5. Comfort bath system only. 6. No personal belongings 7. No visitors at this time 8. May use phone to call 9. Transfer to Transition Bed will be coordinated by the Web Operations Manager based on staffing and bed availability. 10. May have TV if available 11. Voluntary Status actively suicidal with a plan. Must call [facility] and provide re-evaluation prior to exit from the department if he wishes to leave. [facility] Die Maker Stamping or [employer] will be coordinating placement at inpatient facility, last updates included the following: [facility] Patient is currently voluntarily at [facility] and seeking inpatient admission when a bed becomes available. [facility] Frontline Die Maker Stamping will continue seeking plac ement. Please contact the Sliver Machine Operator Windows Mobile Developer ([phone]) and [facility] Die Maker Stamping ([phone]) for any needed changes in the Safety Plan. Safety plan has been provided to interdepartmental care team including Clinical Coordinator , Nursing Director Of Recruitment And Admissions.
--- NOTE | 2019-04-16 03:04 | CMSP_ITS ---
Care Management Safety Plan Safety plan has been established with patient, and care team, to adhere to patient goals, identify restrictions based on behavioral status, address nutrition, and determine allowed personal belongings, tools for hygiene and personal care. Determine level of activity including ambulation, level of supervision, visitors, and determine privileges based on behaviors and level of engagement by pt. SAFETY PLAN: 04/16/19 01:30am ED Room #5 TR 1. Will remain on suicide precautions and in paper clothes. 2. Will remain in room under direct supervision of one-on-one staff at all times provided by CPSO, OMAYRA, ASSISTANT PROFESSOR OF PSYCHOLOGY corrections cadet. 3. May have paper cups, plates, finger foods as well as a safety spoon with which to eat meals. 4. Follow [facility] Management of the Admitted Behavioral Health Patient policy. 5. Comfort bath system only. 6. No personal belongings 7. No visitors at this time 8. May use phone to call 9. Transfer to Transition Bed will be coordinated by the Power Shovel Mechanic based on staffing and bed availability. 10. May have TV if available 11. Voluntary Status actively suicidal with a plan. Must call [facility] and provide re-evaluation prior to exit from the department if he wishes to leave. [facility] Allergy And Immunology Specialist or [facility] will be coordinating placement at inpatient facility, last updates included the following: There are no beds available tonight. Patient is currently voluntarily at [facility] and seeking inpatient admission when a bed becomes available. [facility] Frontline Allergy And Immunology Specialist will continue seeking placement. Please contact the Salvage Inspector Court Crier ([phone]) and [facility] Allergy And Immunology Specialist ([phone]) for any needed changes in the Safety Plan. Safety plan has been provided to interdepartmental care team including Clinical Coordinator , Nursing Lead Tank Mechanic.
--- NOTE | 2019-04-16 03:43 | NUR.NOTE ---
Nursing Note: arrived upstairs to rm [id number]
[2019-04-16 03:48] VITALS: BP 136/79; PULSE 65; RESP 18; TEMP 36.9; O2SAT 99
--- NOTE | 2019-04-16 04:18 | NUR.NOTE ---
Patient was admitted to the medical surgical unit from the emergency room this morning with history of suicidal ideation, which pt does confirmed with me upon assessment. Mr. Farley is AxOx3. Lungs sounds are clear throughout, he does have positive bowel sounds, no abnormalities noted to the extremities. He does have multiple tattoos and good CSMTS. CPSO present in the room with patient. Vital signs done and charted.
--- NOTE | 2019-04-16 04:36 | NUR.NOTE ---
Finger stick 93mg/dl, patient was encouraged to have something to eat or drink, but state he is not feeling up to eating anything at this time
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
--- NOTE | 2019-04-16 08:03 | PDOC.CMPRO ---
Care Management Progress Note Safety plan has been established with patient, and care team, to adhere to patient goals, identify restrictions based on behavioral status, address nutrition, and determine allowed personal belongings, tools for hygiene and personal care. Determine level of activity including ambulation, level of supervision, visitors, and determine privileges based on behaviors and level of engagement by pt. SAFETY PLAN: TB #235 MED/SURG 1. Will remain on suicide precautions and in paper clothes. 2. Will remain in room under direct supervision of one-on-one staff at all times provided by [facility]; [employer], VENTURE CAPITAL ANALYST paper and pulp mill worker. 3. May have paper cups, plates, finger foods as well as a safetyl spoon with which to eat meals. 4. Follow [facility] Management of the Admitted Behavioral Health Patient policy. 5. Comfort bath system only. 6. No personal belongings 7. Visitors limited to , Carmen at this time. 8. Phone contact limited to his at this time. Incoming and outgoing phone calls permitted at RN discretion. 9. Permitted use of television 10. Voluntary Status actively suicidal with a plan. Must call [facility] and provide re-evaluation prior to exit from the department if he wishes to leave. [facility] Greenskeeper Laborer or [facility] will be coordinating placement at inpatient facility, last updates included the following: There are no beds available tonight. Patient is currently voluntarily at [facility] and seeking inpatient admission when a bed becomes available. [facility] Frontline Greenskeeper Laborer will continue seeking placement. Please contact the Re Dye Hand Dictionary Editor ([phone]) and [facility] Greenskeeper Laborer ([phone]) for any needed changes in the Safety Plan. Safety plan has been provided to interdepartmental care team including Clinical Coordinator , Nursing Confidential Investigator.
[2019-04-16] MEDS: metFORMIN 500 MG TAB 1000 MG PO (08:22)
[2019-04-16] MEDS: Omeprazole 20 MG CAPCR 40 MG PO (08:22)
[2019-04-16] MEDS: Spironolactone 25 MG TAB PO (08:22)
[2019-04-16] MEDS: Labetalol 100 MG TAB 300 MG PO (08:22)
[2019-04-16 09:36] VITALS: BP 166/98; PULSE 69; RESP 18; TEMP 36; O2SAT 99
--- NOTE | 2019-04-16 13:16 | PDOC.MHCN ---
Date of service: 04/16/19 Time of Service: 13:16 Mental Health Crisis Note Presenting Issue How did you arrive at the ED and why did you come: Miguelito comes to the ER during the financial wellness coach hours due to depression and suicidal ideation. Precipitating Factors Today, Miguelito continues to express suicidal ideation and says he is not safe to return home. He denies homicidal thoughts and shares that a few weeks ago prior to going to [facility], he did have HI but has not had those kinds of thoughts since his discharge home on March 30, 2019. Disposition BEHAVIOR: Cooperative. EYE CONTACT: Intermittent. MOOD: Depressed. AFFECT: Flat. APPETITE: Miguelito has not been eating at the hospital. He claims to not be hungry. SLEEP(trouble falling/staying asleep: Miguelito reports difficulty sleeping last night, though states he normally sleeps well at home. Plan [facility] has accepted Miguelito for admission. Transport will be done via [employer]. Signature Clinician's Name/Title: Whit Harris BA, [facility] Rfid Manager
--- NOTE | 2019-04-16 13:28 | PDOC.MHCN_ITS ---
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 Precipitating Factors Today, Miguelito continues to express suicidal ideation and says he is not safe to return home. He denies homicidal thoughts and shares that a few weeks ago prior to going to [facility], he did have HI but has not had those kinds of thoughts since his discharge home on March 30, 2019. Disposition BEHAVIOR: Cooperative. EYE CONTACT: Intermittent. MOOD: Depressed. AFFECT: Flat. APPETITE: Miguelito has not been eating at the hospital. He claims to not be hungry. SLEEP(trouble falling/staying asleep: Miguelito reports difficulty sleeping last night, though states he normally sleeps well at home. Plan [facility] has accepted Miguelito for admission. Transport will be done via [employer]. Signature Clinician's Name/Title: Whit Harris BA, [facility] Vice President Of Compliance
--- NOTE | 2019-04-16 16:03 | NUR.NOTE ---
called two times for a nurse to nurse at [facility] the nurse is busy and stated they will flor back. Awaiting call back at this time. Nursing Note:
--- NOTE | 2019-04-16 16:31 | PDOC.CMPRO ---
Care Management Progress Note Miguelito remains appropriate in interaction and well-engaged with this scenario writer. His was permitted to visit as the plan is for Miguelito to transfer to [facility]. NS, Secure Transport, M/S Director Of Operations Home Health and [facility] notified of plan. Provider to Provider complete; awaiting RN to RN for official bed offer. CM provided coordination information to [facility]; Director Of Operations Home Health for follow up as needed. Anticipate Miguelito will discharge to [facility] once RN to RN is complete. He will transport via [employer]. His personal belongings will go with him. His , Carmen retrieved his ring, phone and wallet with his permission; coordinated through this scenario writer.
--- NOTE | 2019-04-16 16:33 | CMPROGNOTE_ITS ---
Care Management Progress Note Miguelito remains appropriate in interaction and well-engaged with this group underwriter. His was permitted to visit as the plan is for Miguelito to transfer to [facility]. [facility], [facility], [facility] and [facility] notified of plan. Provider to Provider complete; awaiting RN to RN for official bed offer. CM provided coordination information to [facility]; [facility] for follow up as needed. Anticipate Miguelito will discharge to [facility] once RN to RN is complete. He will transport via [facility] [employer]. His personal belongings will go with him. His , Carmen retrieved his ring, phone and wallet with his permission; coordinated through this group underwriter.
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
[2019-04-17 10:30] LABS: Hepatitis B Surface Ag Negative (NEGAT)
[2019-04-17 11:03] LABS: Hepatitis C Ab w Rflx HCV PCR Negative (NEGAT)
[2019-04-17 12:40] LABS: HBs Antibody, Quant <3.1 mIU/mL; Hepatitis B Surface Ab Negative
== END 2019-04-16 18:03 | disposition short-term general hospital (02) ==
LOC: ER 04-16 02:29 → MS 04-16 03:38 → TMS 04-16 10:04 → MS 04-19 13:11
PROVIDERS: Admitting Provider Internal Medicine; Emergency Provider Physician Assistant; PCP Nurse Practitioner Family; Visit Provider Internal Medicine
DX: F32.9 Major depressive disorder, single episode, unspecified (principal); R45.851 Suicidal ideations; Z75.1 Person awaiting admission to adequate facility elsewhere; Z75.3 Unavailability and inaccessibility of health-care facilities; K29.70 Gastritis, unspecified, without bleeding; I10 Essential (primary) hypertension; E11.9 Type 2 diabetes mellitus without complications; Z79.84 Long term (current) use of oral hypoglycemic drugs
CPT/HCPCS: 36415; 80053; 80307; 86706; 86803; 87340; 99219; 99239; 99285; 80320; 81003; 81015; 85025; 99217; 99284; G0378

== ENCOUNTER 2019-11-07 11:26 | Outpatient (REF) | payer OTHER, SELFPAY ==
[2019-11-07 13:32] LABS: PROTEIN 20.5 mg/dL
[2019-11-07 13:33] LABS: COMMENT (LAB VIEW ONLY) 180.95 mg/dL; Prot/Crea Ur Ratio 0.11
[2019-11-07 13:35] LABS: COMMENT (LAB VIEW ONLY) 181.58 mg/dL; Microalb ug/mg Crea 5.3 ug/mg Cr
== END 2019-11-07 11:46 ==
LOC: NCHCN 11:26
PROVIDERS: PCP Nurse Practitioner Family; Visit Provider Nurse Practitioner Family
DX: E11.9 Type 2 diabetes mellitus without complications (principal)
CPT/HCPCS: 82043; 82565; 82570; 84156

== ENCOUNTER 2020-08-06 14:17 | Outpatient (REF) | payer OTHER, SELFPAY ==
[2020-08-06 16:26] LABS: ALT 38 U/L (16-63); AST 19 U/L (15-37); Albumin 3.9 g/dL (3.4-5.0); Alkaline Phosphatase 81 U/L (46-116); Anion Gap 7.3 mmol/L (3-11); BUN 18 mg/dL (7-18); Bilirubin, Total 0.7 mg/dL (0.2-1.0); CO2 26.7 mmol/L (21.0-32.0); Calculated LDL 98 mg/dL (<100); Chloride 104 mmol/L (98-107); Cholesterol 154 mg/dL (<200); Glucose 119 mg/dL (74-106); HDL Cholesterol 34 mg/dL (40-60); Potassium 4.5 mmol/L (3.5-5.1); Sodium 138 mmol/L (136-145); Total Protein 7.8 g/dL (6.4-8.2); Triglyceride 113 mg/dL (<150)
[2020-08-06 16:42] LABS: Vitamin D 25 Total 15.1 ng/ml (30-100)
== END 2020-08-06 14:37 ==
LOC: NCHCN 14:17
PROVIDERS: PCP Nurse Practitioner Family; Visit Provider Nurse Practitioner Family
DX: E11.9 Type 2 diabetes mellitus without complications (principal); R94.5 Abnormal results of liver function studies; E55.9 Vitamin D deficiency, unspecified
CPT/HCPCS: 80053; 80061; 82306

== ENCOUNTER 2021-08-27 19:14 | Outpatient (REF) | payer OTHER, SELFPAY ==
[2021-08-27 19:35] LABS: HGB 15.4 g/dL (13.5-17.5); MCH 29.3 pg (27.0-33.0); MCHC 32.8 % (32.0-36.0); MCV 89.4 fL (80-95); MPV 10.3 fL (8.0-11.0); Platelet Count 339 10^3/uL (130-400); RBC 5.26 10^6/uL (4.36-5.78); RDW 13.7 % (11.8-14.1); RDW-SD 44.7 fL; WBC 8.63 10^3/uL (4.4-10.8)
[2021-08-27 21:38] LABS: Hemoglobin A1C 5.6 % (<5.7)
[2021-08-27 21:50] LABS: Albumin 4.1 g/dL (3.4-5.0); BUN 13 mg/dL (7-18); CREATININE 0.9 mg/dL (0.70-1.30); Calcium 9.6 mg/dL (8.5-10.1); Glucose 131 mg/dL (74-106); Total Protein 7.8 g/dL (6.4-8.2)
[2021-08-27 21:51] LABS: ALT 69 U/L (16-63); AST 26 U/L (15-37); Alkaline Phosphatase 82 U/L (46-116); Anion Gap 10.9 mmol/L (3-11); Bilirubin, Total 0.6 mg/dL (0.2-1.0); CO2 24.1 mmol/L (21.0-32.0); Chloride 105 mmol/L (98-107); Potassium 4.3 mmol/L (3.5-5.1); Sodium 140 mmol/L (136-145)
[2021-08-30 08:34] LABS: Vitamin D 25 Total 15.4 ng/mL (30-100)
[2021-08-30 10:53] LABS: HIV-1/2 Ag & Ab Screen Negative (Negative)
== END 2021-08-27 19:15 | disposition home or self-care (01) ==
LOC: NCHCN 19:14
PROVIDERS: PCP Nurse Practitioner Family; Visit Provider Nurse Practitioner Family
DX: E11.9 Type 2 diabetes mellitus without complications (principal); R94.5 Abnormal results of liver function studies; Z11.4 Encounter for screening for human immunodeficiency virus [HIV]
CPT/HCPCS: 80053; 82306; 85027; 87389; 83036

== ENCOUNTER 2022-08-08 14:46 | Outpatient (REF) | payer OTHER, SELFPAY ==
[2022-08-08 15:43] LABS: COMMENT (LAB VIEW ONLY) 212.55 mg/dL; Microalb ug/mg Crea 9.9 ug/mg Cr
== END 2022-08-08 14:47 | disposition home or self-care (01) ==
LOC: NCHCN 14:46
PROVIDERS: Visit Provider Nurse Practitioner Family
DX: E11.9 Type 2 diabetes mellitus without complications (principal)
CPT/HCPCS: 82043; 82570

== ENCOUNTER 2023-04-05 14:35 | Outpatient (REF) | payer OTHER, SELFPAY ==
[2023-04-05 19:07] LABS: Hemoglobin A1C 6.3 % (<5.7)
[2023-04-05 19:13] LABS: ALT 35 U/L (16-63); AST 15 U/L (15-37); Albumin 3.7 g/dL (3.4-5.0); Alkaline Phosphatase 94 U/L (46-116); Anion Gap 9.7 mmol/L (3-11); BUN 16 mg/dL (7-18); Bilirubin, Total 0.4 mg/dL (0.2-1.0); CO2 25.3 mmol/L (21.0-32.0); CREATININE 0.8 mg/dL (0.70-1.30); Calcium 9.2 mg/dL (8.5-10.1); Calculated LDL 73 mg/dL (<100); Chloride 105 mmol/L (98-107); Cholesterol 157 mg/dL (<200); Estimated GFR 114.02 (mL/min/1.73m2); Glucose 173 mg/dL (74-106); HDL Cholesterol 33 mg/dL (40-60); Potassium 4.5 mmol/L (3.5-5.1); Sodium 140 mmol/L (136-145); Total Protein 8.5 g/dL (6.4-8.2); Triglyceride 258 mg/dL (<150)
== END 2023-04-05 14:36 | disposition home or self-care (01) ==
LOC: NCHCN 14:35
PROVIDERS: Visit Provider Nurse Practitioner Family
DX: E11.9 Type 2 diabetes mellitus without complications (principal); R94.5 Abnormal results of liver function studies
CPT/HCPCS: 80053; 80061; 83036

== ENCOUNTER 2023-10-17 14:30 | Outpatient (REF) | payer OTHER, SELFPAY ==
[2023-10-17 16:12] LABS: Hemoglobin A1C 6.2 % (<5.7)
[2023-10-17 16:28] LABS: ALT 41 U/L (16-63); AST 23 U/L (15-37); Albumin 3.7 g/dL (3.4-5.0); Alkaline Phosphatase 91 U/L (46-116); Anion Gap 11.4 mmol/L (3-11); BUN 15 mg/dL (7-18); Bilirubin, Total 0.7 mg/dL (0.2-1.0); CO2 24.6 mmol/L (21.0-32.0); Calcium 9.6 mg/dL (8.5-10.1); Chloride 102 mmol/L (98-107); Estimated GFR 96.37 (mL/min/1.73m2); Glucose 184 mg/dL (74-106); Potassium 4.2 mmol/L (3.5-5.1); Sodium 138 mmol/L (136-145); Total Protein 8.8 g/dL (6.4-8.2)
== END 2023-10-17 14:31 | disposition home or self-care (01) ==
LOC: NCHCN 14:30
PROVIDERS: PCP Nurse Practitioner Family; Visit Provider Nurse Practitioner Family
DX: E11.9 Type 2 diabetes mellitus without complications (principal)
CPT/HCPCS: 80053; 83036

== ENCOUNTER 2024-01-16 15:49 | Outpatient (REF) | payer OTHER, SELFPAY ==
[2024-01-16 18:29] LABS: ALT 33 U/L (16-63); AST 21 U/L (15-37); Albumin 3.6 g/dL (3.4-5.0); Alkaline Phosphatase 93 U/L (46-116); Anion Gap 10.9 mmol/L (3-11); BUN 12 mg/dL (7-18); Bilirubin, Total 0.5 mg/dL (0.2-1.0); CO2 24.1 mmol/L (21.0-32.0); CREATININE 0.8 mg/dL (0.70-1.30); Calcium 9.3 mg/dL (8.5-10.1); Chloride 106 mmol/L (98-107); Estimated GFR 113.32 (mL/min/1.73m2); Glucose 157 mg/dL (74-106); Potassium 4.6 mmol/L (3.5-5.1); Sodium 141 mmol/L (136-145); TSH (W/Ref FT4) 2.18 uIU/mL (0.36-3.74); Total Protein 8.2 g/dL (6.4-8.2)
== END 2024-01-16 15:50 | disposition home or self-care (01) ==
LOC: NCHCN 15:49
PROVIDERS: PCP Nurse Practitioner Family; Visit Provider Nurse Practitioner Family
DX: I10 Essential (primary) hypertension (principal); E11.9 Type 2 diabetes mellitus without complications
CPT/HCPCS: 80053; 83036; 84443

== ENCOUNTER 2024-09-19 15:02 | Outpatient (REF) | payer OTHER, SELFPAY ==
[2024-09-19 19:24] LABS: Abs Immature Grans 0.05 10^3/uL (0.0-0.06); Absolute Basophil Count 0.16 10^3/uL (0.0-0.2); Absolute Eosinophil Count 0.32 10^3/uL (0.0-0.7); Absolute Lymphocyte Count 1.36 10^3/uL (1.2-3.4); Absolute Monocyte Count 0.71 10^3/uL (0.1-0.8); Absolute Neutrophil Count 6.62 10^3/uL (1.2-6.7); Basophils % 1.7 %; Eosinophils % 3.5 %; HCT 46.2 % (40.0-50.0); HGB 15.5 g/dL (13.5-17.5); Immature Grans % 0.5 %; Lymphocytes % 14.8 %; MCHC 33.5 % (32.0-36.0); MCV 90 fL (80-95); MPV 9.7 fL (8.0-11.0); Monocytes % 7.7 %; Neutrophils % 71.8 %; Platelet Count 354 10^3/uL (130-400); RBC 5.16 10^6/uL (4.36-5.78); RDW 13.5 % (11.8-14.1); RDW-SD 44.1 fL; WBC 9.22 10^3/uL (4.4-10.8)
[2024-09-19 19:31] LABS: Bilirubin Negative (Negative); Blood Negative (Negative); Clarity Cloudy (Clear); Glucose Negative (Negative); Ketones Negative (Negative); Leukocyte Esterase Negative (Negative); Nitrite Negative (Negative); Specific Gravity >= 1.030 (1.005-1.025); Urobilinogen 0.2 mg/dL (Up to 0.2)
[2024-09-19 19:52] LABS: ALT 56 U/L (16-63); AST 28 U/L (15-37); Albumin 3.9 g/dL (3.4-5.0); Alkaline Phosphatase 103 U/L (46-116); Anion Gap 11.2 mmol/L (3-11); BUN 14 mg/dL (7-18); Bilirubin, Total 0.75 mg/dL (0.2-1.0); CO2 23.8 mmol/L (21.0-32.0); CREATININE 1.1 mg/dL (0.70-1.30); Calcium 9.4 mg/dL (8.5-10.1); Chloride 103 mmol/L (98-107); Estimated GFR 85.42 (mL/min/1.73m2); Glucose 179 mg/dL (74-106); Microalb ug/mg Crea 11.2 ug/mg Cr; Potassium 4.8 mmol/L (3.5-5.1); Sodium 138 mmol/L (136-145); Total Protein 8.1 g/dL (6.4-8.2)
== END 2024-09-19 15:03 | disposition home or self-care (01) ==
LOC: NCHCN 15:02
PROVIDERS: Visit Provider Nurse Practitioner Family
DX: I10 Essential (primary) hypertension (principal); E11.9 Type 2 diabetes mellitus without complications
CPT/HCPCS: 80053; 81003; 82043; 82570; 85025

== ENCOUNTER 2025-04-15 17:51 | Outpatient (REF) | payer OTHER, SELFPAY ==
[2025-04-15 18:30] LABS: Abs Immature Grans 0.05 10^3/uL (0.0-0.06); HCT 45.6 % (40.0-50.0); HGB 15.5 g/dL (13.5-17.5); Immature Grans % 0.5 %; MCH 29.9 pg (27.0-33.0); MCHC 34.0 % (32.0-36.0); MCV 88 fL (80-95); MPV 9.9 fL (8.0-11.0); Platelet Count 371 10^3/uL (130-400); RBC 5.19 10^6/uL (4.36-5.78); RDW 13.5 % (11.8-14.1); RDW-SD 43.4 fL; WBC 9.39 10^3/uL (4.4-10.8)
[2025-04-15 18:55] LABS: ALT 62 U/L (16-63); AST 27 U/L (15-37); Albumin 3.9 g/dL (3.4-5.0); Alkaline Phosphatase 106 U/L (46-116); Anion Gap 10.7 mmol/L (3-11); BUN 12 mg/dL (7-18); Bilirubin, Total 0.6 mg/dL (0.2-1.0); CO2 25.3 mmol/L (21.0-32.0); Calcium 9.4 mg/dL (8.5-10.1); Chloride 101 mmol/L (98-107); Estimated GFR 112.61 (mL/min/1.73m2); Glucose 202 mg/dL (74-106); Potassium 4.6 mmol/L (3.5-5.1); Sodium 137 mmol/L (136-145); Total Protein 7.9 g/dL (6.4-8.2)
== END 2025-04-15 17:52 | disposition home or self-care (01) ==
LOC: NCHCN 17:51
PROVIDERS: Visit Provider Student in an Organized Health Care Education/Training Program
DX: E66.01 Morbid (severe) obesity due to excess calories (principal); Z68.43 Body mass index [BMI] 50.0-59.9, adult
CPT/HCPCS: 80053; 85025

== ENCOUNTER 2025-07-18 16:10 | Outpatient (REF) | payer OTHER, SELFPAY ==
[2025-07-18 22:12] LABS: Hemoglobin A1C 8.9 % (<5.7)
== END 2025-07-18 16:11 | disposition home or self-care (01) ==
LOC: NCHCN 16:10
PROVIDERS: Visit Provider Student in an Organized Health Care Education/Training Program
DX: E11.9 Type 2 diabetes mellitus without complications (principal)
CPT/HCPCS: 83036